=== PATIENT | male | born 1930 | race Caucasian/White ===

== ENCOUNTER → 2019-06-05 | Outpatient (CLI) | payer MEDICARE ==
[~2019-06-05] MED LIST: CATHETER FLUSH 10 ML SYR IV PRN; HOLD METFORMIN - RECEIVED CONTRAST 20 ML VIAL IV SCH; IOHEXOL 350 MG/ML 100 ML (OMNIPAQUE 350) VIAL IV ONE; NS 100 ML (IVPB) BAG IV ONE
[2019-06-05 11:00] LABS: BUN/CREATININE RATIO 19; CREATININE SERUM 0.69 MG/DL (0.60-1.30); GFR ESTIMATED > 60
--- NOTE | 2019-06-05 11:55 | Diagnostic Imaging Report ---
PROCEDURE: CT abdomen and pelvis with and without contrast. TECHNIQUE: Precontrast acquisitions were acquired through the abdomen and pelvis. Multiple contiguous axial images were obtained through the abdomen and pelvis after the administration of intravenous contrast. Auto Exposure Controls were utilized during the CT exam to meet ALARA standards for radiation dose reduction. INDICATION: Bilateral flank pain, right greater for 3 weeks. Patient also complains of hematuria. COMPARISON: No prior studies are available for comparison. FINDINGS: Lung bases does show some linear scarring or atelectasis in the left lower lobe. No discrete liver mass is identified apart from an area of hypodensity posterior right lobe measuring 10 mm. This could represent a flash filling hemangioma. No other liver lesions are seen. The gallbladder is unremarkable. No biliary ductal dilatation is seen. The pancreas and spleen are unremarkable. No adrenal mass is identified. Cortical low density left kidney is noted measuring 12 mm. This does not appear to enhance and most likely represents a cyst. No definite calculi or hydronephrosis is identified. Aorta is non-aneurysmal. Diffuse colonic diverticulosis is noted but no evidence of acute diverticulitis. Small bowel loops are normal caliber. There is no ascites. No discrete bladder mass is seen although there does appear to be some mild wall thickening of the anterior aspect of the urinary bladder, indeterminate. No abdominal or pelvic lymphadenopathy is seen. Bony structures are nonacute. IMPRESSION: 1. Left renal cyst. 2. Colonic diverticulosis without evidence of acute diverticulitis. 3. No evidence of urinary tract calculi or obstruction. There does appear to be some mild anterior bladder wall thickening without evidence of discrete mass. Cystoscopy may be useful for further evaluation. Dictated by: Dictated on workstation # [id number]
== END ==
LOC: RAD FS 10:18
PROVIDERS: ATTEND Family Medicine
DX: N28.1 Cyst of kidney, acquired (principal); K57.30 Diverticulosis of large intestine without perforation or abscess without bleeding
CPT/HCPCS: 36415; 74178; 82565; 84520

== ENCOUNTER → 2019-08-07 | Outpatient (CLI) | payer MEDICARE ==
[2019-08-07 12:05] LABS: HEMATOCRIT 44 % (40-54); HEMOGLOBIN 13.5 G/DL (13.3-17.7); MEAN CORPUSCULAR HEMOGLOBIN 28 PG (25-34); MEAN CORPUSCULAR HGB CONC 31 G/DL (32-36); MEAN CORPUSCULAR VOLUME 90 FL (80-99); WHITE BLOOD COUNT 9.3 10^3/uL (4.3-11.0)
[2019-08-07 12:06] LABS: BASOPHILS # (AUTO) 0.1 10^3/uL (0.0-0.1); BASOPHILS % (AUTO) 1 % (0-10); EOSINOPHILS # (AUTO) 0.2 10^3/uL (0.0-0.3); EOSINOPHILS % (AUTO) 3 % (0-10); LYMPHOCYTES # (AUTO) 2.8 X 10^3 (1.0-4.0); LYMPHOCYTES % (AUTO) 30 % (12-44); MEAN PLATELET VOLUME 11.6 FL (7.4-10.4); MONOCYTES # (AUTO) 0.8 X 10^3 (0.0-1.0); MONOCYTES % (AUTO) 9 % (0-12); NEUTROPHILS # (AUTO) 5.3 X 10^3 (1.8-7.8); NEUTROPHILS % (AUTO) 58 % (42-75); PLATELET COUNT 220 10^3/uL (130-400); RED CELL DISTRIBUTION WIDTH 14.4 % (10.0-14.5)
--- NOTE | 2019-08-07 12:21 | Diagnostic Imaging Report ---
INDICATION: Shortness of breath. TIME OF EXAM: 11:29 AM COMPARISON: No prior studies are available for comparison. FINDINGS: The heart is mildly enlarged. There are changes of median sternotomy. There is mild central congestive changes noted. The lungs are hyperinflated consistent with COPD. No effusion or pneumothorax is identified. IMPRESSION: Cardiomegaly and COPD with mild central congestion. Dictated by: Dictated on workstation # [id number]
[2019-08-07 12:27] LABS: CHLORIDE 96 MMOL/L (98-107); POTASSIUM 4.4 MMOL/L (3.6-5.0); SODIUM 137 MMOL/L (135-145)
[2019-08-07 12:28] LABS: BUN/CREATININE RATIO 19; CALCIUM 9.2 MG/DL (8.5-10.1); CARBON DIOXIDE 31 MMOL/L (21-32); CREATININE SERUM 0.72 MG/DL (0.60-1.30); GFR ESTIMATED > 60; GLUCOSE 102 MG/DL (70-105)
[2019-08-07 14:49] LABS: CLARITY,URINE TURBID; COLOR,URINE YELLOW; GLUCOSE, URINE (UA) NEGATIVE (NEGATIVE); KETONES,URINE TRACE (NEGATIVE); NITRITE,URINE NEGATIVE (NEGATIVE); PH,URINE 6.5 (5-9); PROTEIN,URINE 2+ (NEGATIVE)
[2019-08-07 14:50] LABS: BACTERIA,URINE FEW /HPF; BILIRUBIN,URINE 1+ (NEGATIVE); LEUKOCYTE ESTERASE ,URINE 3+ (NEGATIVE); RBC,URINE 0-2 /HPF; SQUAMOUS EPITHELIAL CELL,UR RARE /HPF; WBC,URINE TNTC /HPF
== END ==
LOC: RAD FS 11:22
PROVIDERS: ATTEND Family Medicine
DX: I51.7 Cardiomegaly (principal); J44.9 Chronic obstructive pulmonary disease, unspecified; R30.0 Dysuria
CPT/HCPCS: 36415; 71046; 80048; 81000; 85025; 87077; 87088; 87186

== ENCOUNTER → 2019-11-10 | Outpatient (CLI) | payer MEDICARE ==
[2019-11-10 13:36] LABS: BILIRUBIN,URINE NEGATIVE (NEGATIVE); CLARITY,URINE SL CLOUDY; COLOR,URINE YELLOW; GLUCOSE, URINE (UA) NEGATIVE (NEGATIVE); KETONES,URINE NEGATIVE (NEGATIVE); LEUKOCYTE ESTERASE ,URINE NEGATIVE (NEGATIVE); NITRITE,URINE NEGATIVE (NEGATIVE); PROTEIN,URINE 1+ (NEGATIVE)
[2019-11-10 13:37] LABS: BACTERIA,URINE TRACE /HPF; RBC,URINE >100 /HPF
== END ==
LOC: LAB FS 13:11
PROVIDERS: ATTEND Family Medicine
DX: R30.0 Dysuria (principal)
CPT/HCPCS: 81000; 87088

== ENCOUNTER 2019-12-02 11:48 | Inpatient (IN) | payer MEDICARE ==
[~2019-12-02] VITALS: Ht 154 cm; Wt 74.6 kg
--- NOTE | 2019-12-02 11:48 | NUR ---
TO ER VIA WC FROM DR AMADOR OFFICE. PT NEEDS TO GO TO THE BATHROOM BEFORE GOING TO A ROOM.
--- NOTE | 2019-12-02 13:00 | ED Respiratory ---
General Chief Complaint: Respiratory Problems Stated Complaint: SOB Nursing Triage Note: FROM DR AMADOR OFFICE WTIH INCREASED SOA. PT CAME ON 3L OF OXYGEN NC FROM HOME. Source: patient Exam Limitations: no limitations History of Present Illness Date Seen by Provider: Dec 02, 2019 Time Seen by Provider: 12:40 Initial Comments The patient is a pleasant 88-year-old female who was sent by Dr. Jordan for hypoxia. Dr. Jordan states the patient has a history of congestive heart failure and was saturating in the low 80s today. The patient reports that since Cecilia time she has been having a cough and some shortness of breath. She was diagnosed with a pneumonia in late August or early September and was started on antibiotics. She says recently her symptoms have been worsening. She denies chest pain, fevers or chills, nausea or vomiting, dizziness, syncope, abdominal or back pain. She does state that her heart rate has been fluctuating. She does not wear oxygen at home. 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 Timing/Duration: week Severity: moderate Modifying Factors: Improves With Albuterol Nebulizer (help somewhat), Improves With Oxygen (helps) Associated Symptoms: cough, shortness of breath, wheezing Allergies and Home Medications Allergies Coded Allergies: codeine (Verified Allergy, Unknown, 12/02/19) hydrocodone (Verified Allergy, Unknown, 12/02/19) tramadol (Verified Allergy, Unknown, 12/02/19) Patient Home Medication List Home Medication List Reviewed: Yes Review of Systems Review of Systems Constitutional: no symptoms reported EENTM: no symptoms reported Respiratory: cough, short of breath Cardiovascular: other (fluctuating heart rate) Gastrointestinal: no symptoms reported Genitourinary: no symptoms reported Musculoskeletal: no symptoms reported Skin: no symptoms reported Psychiatric/Neurological: No Symptoms Reported Hematologic/Lymphatic: No Symptoms Reported Immunological/Allergic: no symptoms reported All Other Systems Reviewed Negative Unless Noted: Yes Past Dmkalxo-Zaatno-Aopqyz Hx Past Med/Social Hx: Reviewed Nursing Past Med/Soc Hx Patient Social History Alcohol Use: Rarely Uses Recreational Drug Use: No Smoking Status: Former Smoker Recent Foreign Travel: No Contact w/Someone Who Travel: Yes (DAUGHTER IN [place] 3 WEEKS AGO) Recent Infectious Disease Expo: No Past Medical History Surgeries: Yes (CYSTOCELE, RECTOCELE, ) CABG, Hysterectomy, Tonsillectomy Respiratory: Yes Pneumonia, COPD Cardiac: Yes Heart Attack, Hypertension Neurological: No Genitourinary: Yes UTI-Chronic Gastrointestinal: No Musculoskeletal: Yes Arthritis Endocrine: Yes (CONTROLLED WITH DIET) Diabetes, Non-Insulin dep HEENT: No Cancer: No Psychosocial: No Integumentary: No Physical Exam Vital Signs - First Documented 12/02/19 12:07 Temp 36.4 Pulse 114 Resp 18 B/P (MAP) 140/69 (92) Pulse Ox 95 O2 Delivery Nasal Cannula Capillary Refill : Less Than 3 Seconds Height: '" Weight: lbs. oz. kg; 28.00 BMI Method: General Appearance: WD/WN, no apparent distress HEENT: PERRL/EOMI, normal ENT inspection, pharynx normal Neck: non-tender, full range of motion, supple, normal inspection Respiratory: chest non-tender, no respiratory distress, wheezing (expiratory) Cardiovascular: no gallop, no JVD, no murmur, tachycardia Gastrointestinal: normal bowel sounds, non tender, soft, no pulsatile mass Extremities: normal range of motion, non-tender, normal inspection, no pedal edema Neurologic/Psychiatric: no motor/sensory deficits, alert, normal mood/affect, oriented x 3 Skin: normal color, warm/dry Focused Exam Lactate Level 12/02/19 12:40: Lactic Acid Level 1.11 Lactic Acid Level Laboratory Tests Test 12/02/19 12:40 Lactic Acid Level 1.11 MMOL/L (0.50-2.00) Progress/Results/Core Measures Suspected Sepsis Recent Fever Within 48 Hours: No Infection Criteria Present: Suspected New Infection New/Unexplained Altered Menta: No Sepsis Screen: No Definite Risk SIRS Temperature: Pulse: 114 Respiratory Rate: 18 Laboratory Tests 12/02/19 12:40: White Blood Count 7.1 Blood Pressure 140 /69 Mean: 92 12/02/19 12:40: Lactic Acid Level 1.11 Laboratory Tests 12/02/19 12:40: Creatinine 0.74, Platelet Count 213, Total Bilirubin 0.3 Results/Orders Lab Results Laboratory Tests Test 12/02/19 12:40 Range/Units White Blood Count 7.1 4.3-11.0 10^3/uL Red Blood Count 4.19 L 4.35-5.85 10^6/uL Hemoglobin 11.8 11.5-16.0 G/DL Hematocrit 39 35-52 % Mean Corpuscular Volume 94 80-99 FL Mean Corpuscular Hemoglobin 28 25-34 PG Mean Corpuscular Hemoglobin Concent 30 L 32-36 G/DL Red Cell Distribution Width 13.2 10.0-14.5 % Platelet Count 213 130-400 10^3/uL Mean Platelet Volume 11.2 H 7.4-10.4 FL Neutrophils (%) (Auto) 59 42-75 % Lymphocytes (%) (Auto) 28 12-44 % Monocytes (%) (Auto) 1 0-12 % Eosinophils (%) (Auto) 10 0-10 % Basophils (%) (Auto) 1 0-10 % Neutrophils # (Auto) 4.2 1.8-7.8 X 10^3 Lymphocytes # (Auto) 2.0 1.0-4.0 X 10^3 Monocytes # (Auto) 0.7 0.0-1.0 X 10^3 Eosinophils # (Auto) 0.1 0.0-0.3 10^3/uL Basophils # (Auto) 0.0 0.0-0.1 10^3/uL Sodium Level 137 135-145 MMOL/L Potassium Level 3.9 3.6-5.0 MMOL/L Chloride Level 90 L 98-107 MMOL/L Carbon Dioxide Level 40 H 21-32 MMOL/L Anion Gap 7 5-14 MMOL/L Blood Urea Nitrogen 17 7-18 MG/DL Creatinine 0.74 0.60-1.30 MG/DL Estimat Glomerular Filtration Rate > 60 BUN/Creatinine Ratio 23 Glucose Level 99 70-105 MG/DL Lactic Acid Level 1.11 0.50-2.00 MMOL/L Calcium Level 9.3 8.5-10.1 MG/DL Corrected Calcium 10.1 8.5-10.1 MG/DL Total Bilirubin 0.3 0.1-1.0 MG/DL Aspartate Amino Transf (AST/SGOT) 18 5-34 U/L Alanine Aminotransferase (ALT/SGPT) 12 0-55 U/L Alkaline Phosphatase 55 40-136 U/L Troponin I < 0.30 <0.30 NG/ML Pro-B-Type Natriuretic Peptide 2831.0 H <75.0 PG/ML Total Protein 7.5 6.4-8.2 GM/DL Albumin 3.0 L 3.2-4.5 GM/DL My Orders Orders - BRO NERI DO Cbc With Automated Diff (12/02/19 12:39) Chest 1 View Ap/Pa Only (12/02/19 12:39) Ekg Tracing (12/02/19 12:39) Comprehensive Metabolic Panel (12/02/19 12:39) O2 (12/02/19 12:39) Monitor-Rhythm Ecg Trace Only (12/02/19 12:39) Ed Iv/Invasive Line Start (12/02/19 12:39) Creatine Kinase Mb (12/02/19 12:39) Troponin I Fs (12/02/19 12:39) Probnp Fs (12/02/19 12:39) Lactic Acid Analyzer (12/02/19 12:47) Blood Culture (12/02/19 12:47) Levofloxacin 750 Mg/150 Ml Iv (Levaquin (12/02/19 14:45) Vital Signs/I&O 12/02/19 12:07 Temp 36.4 Pulse 114 Resp 18 B/P (MAP) 140/69 (92) Pulse Ox 95 O2 Delivery Nasal Cannula Capillary Refill : Less Than 3 Seconds Blood Pressure Mean: 92 Progress Note : Progress Note @1445 - patient and daughter updated on lab and imaging results. As the patient is hypoxic she will need to be admitted and the family and patient agree. Case was discussed with Dr. Roche who is the hospitalist and accepts the patient for inpatient telemetry admission. ECG Comment @1209 - atrial fibrillation, rate of 100, normal axis, no acute ischemic findings noted, no STEMI, reviewed and interpreted by myself Departure Communication (Admissions) Time/Spoke to Admitting Phy: 14:43 Dr Roche accepts the patient to an inpatient telemetry bed at [facility]. Impression Primary Impression: New onset atrial fibrillation Additional Impressions: Atypical pneumonia Hypoxia Elevated brain natriuretic peptide (BNP) level Disposition: ADMITTED INPATIENT Condition: Stable Admissions Decision to Admit Reason: Admit from ER (General) Decision to Admit/Date: Dec 02, 2019 Time/Decision to Admit Time: 14:45 Departure-Patient Inst. Referrals: QUENTIN JORDAN MD (PCP/Family) Primary Care Physician BRO NERI DO Dec 02, 2019 13:00
[2019-12-02 13:04] LABS: HEMATOCRIT 39 % (35-52); HEMOGLOBIN 11.8 G/DL (11.5-16.0); MEAN CORPUSCULAR HEMOGLOBIN 28 PG (25-34); MEAN CORPUSCULAR HGB CONC 30 G/DL (32-36); MEAN CORPUSCULAR VOLUME 94 FL (80-99); MEAN PLATELET VOLUME 11.2 FL (7.4-10.4); PLATELET COUNT 213 10^3/uL (130-400); RED CELL DISTRIBUTION WIDTH 13.2 % (10.0-14.5); WHITE BLOOD COUNT 7.1 10^3/uL (4.3-11.0)
[2019-12-02 13:05] LABS: BASOPHILS % (AUTO) 1 % (0-10); EOSINOPHILS # (AUTO) 0.1 10^3/uL (0.0-0.3); EOSINOPHILS % (AUTO) 10 % (0-10); LYMPHOCYTES % (AUTO) 28 % (12-44); MONOCYTES # (AUTO) 0.7 X 10^3 (0.0-1.0); MONOCYTES % (AUTO) 1 % (0-12); NEUTROPHILS # (AUTO) 4.2 X 10^3 (1.8-7.8); NEUTROPHILS % (AUTO) 59 % (42-75)
--- NOTE | 2019-12-02 13:08 | Diagnostic Imaging Report ---
INDICATION: Shortness of air. Hypoxia. COMPARISON: 08/07/2019 FINDINGS: Single frontal radiographic view of the chest was obtained and shows moderate cardiomegaly and pulmonary vascular congestion. There has been interval increase in otherwise small bibasilar effusions. There are also patchy alveolar opacities in both lung bases, left greater than right. No pneumothorax is seen on either side. Osseous structures show no gross acute abnormalities. Sternotomy wires and calcified aortic atherosclerosis are noted. IMPRESSION: 1. Interval increase in otherwise small bibasilar effusions. 2. Patchy bibasilar alveolar opacities; suspect atelectasis, although patchy infiltrate is not excluded. 3. Cardiomegaly with pulmonary vascular congestion. Dictated by: Dictated on workstation # [id number]
--- NOTE | 2019-12-02 13:12 | NUR ---
WATER TAKEN TO PT. DENIES NEEDS AT THIS TIME. NOTIFIED WE WERE WAITING ON RESULTS.
[2019-12-02 13:35] LABS: CARBON DIOXIDE 40 MMOL/L (21-32); CHLORIDE 90 MMOL/L (98-107); POTASSIUM 3.9 MMOL/L (3.6-5.0); SODIUM 137 MMOL/L (135-145)
[2019-12-02 13:36] LABS: ALANINE AMINOTRANSFERASE 12 U/L (0-55); ALKALINE PHOSPHATASE 55 U/L (40-136); BILIRUBIN,TOTAL 0.3 MG/DL (0.1-1.0); BUN/CREATININE RATIO 23; CALCIUM 9.3 MG/DL (8.5-10.1); CREATININE SERUM 0.74 MG/DL (0.60-1.30); GFR ESTIMATED > 60; GLUCOSE 99 MG/DL (70-105); TOTAL PROTEIN 7.5 GM/DL (6.4-8.2)
--- NOTE | 2019-12-02 14:17 | NUR ---
DATUGHTER IS LEAVING AND WILL BE BACK SHORTLY. ASSISTED PT TO COMMODE.
[2019-12-02] MEDS ORDERED: LEVOFLOXACIN 750 MG/150 ML IV 150 ML IV ONE (14:45)
--- NOTE | 2019-12-02 14:53 | NUR ---
CENTRAL OFFICE SUPERVISOR CONTACTED FOR A BED. IN TALKNG TO PT AT THIS TIME.
--- NOTE | 2019-12-02 15:10 | NUR ---
ATTEMPT TO CALL REPORT WITH NOT ANSWER
[2019-12-02] MEDS ORDERED: polyethylene glycoL POWDER 17 GM (MIRALAX) PACK PO PRN (16:00)
[2019-12-02] MEDS ORDERED: MELATONIN 3 MG TABLET PO PRN (16:00)
[2019-12-02 17:16] VITALS: BP 123/63
[2019-12-02] MEDS ORDERED: CATHETER FLUSH 10 ML SYR IV PRN (17:30)
--- NOTE | 2019-12-02 18:26 | Consultation-Cardiology ---
HPI-Cardiology Cardiology Consultation: Date of Consultation 12/02/19 Time Seen by a Provider: 17:50 Date of Admission Attending Physician Tana Roche MD Admitting Physician Liliana Carvajal MD Consulting Physician RICARDO FLOWERS MD, MA, FACP, FACC, [facility] Physician requesting consult: Dr Roche HPI: Chief Complaint: Reason for Card consult: Newly-diagnosed A Fib HPI 88 yo with 2-3 weeks of palp and limitation of stamina beyond what has been her norm. Mod exertional shortness of breath. No cp. No focal weakness. No passing out. No leg swelling Went to pcp. Found to have fast, irreg heart rate. Sent to ER at [facility] from where sent to this hosp Review of Systems-Cardiology Review of Systems Constitutional: malaise, tiredness, weight gain (5 lbs in last one week) Eyes: No vision change Ears/Nose/Throat: No ear discharge, No nasal drainage, No recent hearing loss Respiratory: As described under HPI Cardiovascular: As described under HPI Gastrointestinal: No diarrhea, No nausea, No vomiting Genitourinary: No dysuria, No hematuria, No urine frequency changes Musculoskeletal: back pain (chronic) Skin: No rash, No ulcerations Psychiatric/Neurological: No seizure, No focal weakness, No syncope Hematologic: No bleeding abnormalities All Other Systems Reviewed Negative Unless Noted: Yes QFG-Tcnepa-Mgexym Hx Patient Social History Alcohol Use: Rarely Uses Recreational Drug Use: No Smoking Status: Former Smoker Recent Foreign Travel: No Recent Infectious Disease Expo: No Past Medical History PMH As described under Assessment. Family Medical History Family Medical History: Does not report fam h/o early CAD or SCD Allergies and Home Medications Allergies Coded Allergies: codeine (Verified Allergy, Unknown, 12/02/19) hydrocodone (Verified Allergy, Unknown, 12/02/19) tramadol (Verified Allergy, Unknown, 12/02/19) Patient Home Medication List Home Medication List Reviewed: Yes Physical Exam-Cardiology Physical Exam Vital Signs/I&O 12/02/19 12/02/19 12/02/19 12/02/19 12:07 12:07 16:16 17:16 Temp 36.4 36.5 Pulse 114 90 97 Resp 18 22 20 B/P (MAP) 140/69 (92) 98/41 123/63 Pulse Ox 95 98 90 O2 Delivery Nasal Cannula Nasal Cannula Nasal Cannula Nasal Cannula O2 Flow Rate 3.00 3.00 4.00 12/02/19 17:35 Pulse 103 Capillary Refill : Less Than 3 Seconds Constitutional: AAO x 3, well-developed, well-nourished HEENT: EOMI, hearing is well preserved; No xanthelasmas are seen Neck: carotid pulses are 2 + bilaterally, with good upstrokes Respiratory: No accessory muscle use; other (good bilat air entry) Cardiovascular: irregularly irregular, S1 and S2, systolic murmur (soft JOEL at card base) Gastrointestinal: No tender; soft; No guarding, No rebound; audible bowel brett nds Extremities: No clubbing, No cyanosis, No significant edema Neurologic/Psychiatric: oriented x 3, other (moves all limbs equally) Skin: No rash on exposed areas, No ulcerations on exposed areas Data Review Labs Laboratory Tests 12/02/19 12:40: White Blood Count 7.1, Red Blood Count 4.19L, Hemoglobin 11.8, Hematocrit 39, Mean Corpuscular Volume 94, Mean Corpuscular Hemoglobin 28, Mean Corpuscular Hemoglobin Concent 30L, Red Cell Distribution Width 13.2, Platelet Count 213, Mean Platelet Volume 11.2H, Neutrophils (%) (Auto) 59, Lymphocytes (%) (Auto) 28, Monocytes (%) (Auto) 1, Eosinophils (%) (Auto) 10, Basophils (%) (Auto) 1, Neutrophils # (Auto) 4.2, Lymphocytes # (Auto) 2.0, Monocytes # (Auto) 0.7, Eosinophils # (Auto) 0.1, Basophils # (Auto) 0.0, Sodium Level 137, Potassium Level 3.9, Chloride Level 90L, Carbon Dioxide Level 40H, Anion Gap 7, Blood Urea Nitrogen 17, Creatinine 0.74, Estimat Glomerular Filtration Rate > 60, BUN/Creatinine Ratio 23, Glucose Level 99, Lactic Acid Level 1.11, Calcium Level 9.3, Corrected Calcium 10.1, Total Bilirubin 0.3, Aspartate Amino Transf (AST/SGOT) 18, Alanine Aminotransferase (ALT/SGPT) 12, Alkaline Phosphatase 55, Troponin I < 0.30, Pro-B-Type Natriuretic Peptide 2831.0H, Total Protein 7.5, Albumin 3.0L Laboratory Tests 3/10/20 12:40 A/P-Cardiology Assessment/Admission Diagnosis A Fib of undetermined age (first diagnosed on 12-02-19) CAD. S/p CABG in late at [facility]. Multiple cor stents since, but none in the last 5 years Discussion and Recomendations * Long-acting dilt for vent rate control * Apixaban for stroke prophylaxis * ASA for CAD (h/o CABG and PCI) * Monitor labs * Echo * Discussed with Dr Rcohe on phone earlier today RICARDO FLOWERS MD FACP FAC CCDS Dec 02, 2019 18:26
[2019-12-02 19:47] VITALS: BP 122/57
[2019-12-02] MEDS ORDERED: RT-ALBUTEROL/IPRATROPIUM 3 ML (DUONEB) VIAL INH SCH (21:00)
[2019-12-02] MEDS: diphenhydrAMINE 25 MG TAB (BENADRYL) PO PRN (21:16)
[2019-12-02] MEDS: APIXABAN 5 MG (ELIQUIS) TABLET PO SCH (21:16)
[2019-12-02] MEDS: ALPRAZolam 0.5 MG (XANAX) TAB PO PRN (21:16)
[2019-12-02] MEDS: CATHETER FLUSH 10 ML SYR IV SCH (22:00)
[2019-12-03] VITALS (8 sets, daily range): BP systolic 97–140; BP diastolic 60–74
[2019-12-03] MEDS: CATHETER FLUSH 10 ML SYR IV SCH ×3 (05:32→22:00)
[2019-12-03 07:08] LABS: HEMOGLOBIN 12.1 G/DL (11.5-16.0); MEAN PLATELET VOLUME 11.7 FL (7.4-10.4); RED CELL DISTRIBUTION WIDTH 13.5 % (10.0-14.5); WHITE BLOOD COUNT 5.9 10^3/uL (4.3-11.0)
[2019-12-03 07:24] LABS: BUN/CREATININE RATIO 20; CALCIUM 9.1 MG/DL (8.5-10.1); CARBON DIOXIDE 35 MMOL/L (21-32); CHLORIDE 92 MMOL/L (98-107); GFR ESTIMATED > 60; GLUCOSE 113 MG/DL (70-105); POTASSIUM 4.2 MMOL/L (3.6-5.0); SODIUM 139 MMOL/L (135-145)
[2019-12-03] MEDS: APIXABAN 5 MG (ELIQUIS) TABLET PO SCH (08:25)
[2019-12-03] MEDS: ACETAMINOPHEN 325 MG TABLET PO PRN (08:25)
[2019-12-03] MEDS ORDERED: ASPIRIN E.C. 81 MG (ECOTRIN) TAB PO SCH (09:00)
[2019-12-03] MEDS ORDERED: dilTIAZem120 MG (CARDIZEM CD) CAP PO SCH (09:00)
--- NOTE | 2019-12-03 10:37 | Physical Therapy Evaluation ---
PT Evaluation-General Medical Diagnosis Admission Date Dec 02, 2019 at 15:11 Medical Diagnosis: SOB, A fib Onset Date: Dec 02, 2019 Therapy Diagnosis Therapy Diagnosis: Impaired mobility Precautions Precautions/Isolations: Fall Prevention, Standard Precautions Weight Bear Status Right Lower Extremity: Right Weight Bearing/Tolerated Left Lower Extremity: Left Weight Bearing/Tolerated Referral Physician: Melchor Reason for Referral: Evaluation/Treatment Medical History Additional Medical History Past Medical History Surgeries: Yes (CYSTOCELE, RECTOCELE, ) CABG, Hysterectomy, Tonsillectomy Respiratory: Yes Pneumonia, COPD Cardiac: Yes Heart Attack, Hypertension Neurological: No Genitourinary: Yes UTI-Chronic Gastrointestinal: No Musculoskeletal: Yes Arthritis Endocrine: Yes (CONTROLLED WITH DIET) Diabetes, Non-Insulin dep HEENT: No Cancer: No Psychosocial: No Integumentary: No Reviewed History: Yes Social History Home: Single Level Current Living Status: Alone (PRN help from family for shopping.) Entry Into Home: Ramp (covering 2 stairs) PT Steps Into Home: 0 PT Steps Inside Home: 0 (Ramp) Prior Prior Level of Function SCALE: Activities may be completed with or without assistive devices. 2-Tncbotegva-hryqhai completes the activity by him/herself with no assistance from a helper. 5-Set-up or Clean-up Assistance-helper sets up or cleans up; patient completes activity. [place] assists only prior to or following the activity. 4-Supervision or Touching Assistance-helper provides verbal cues and/or touching/steadying and/or contact guard assistance as patient completes activity. Assistance may be provided throughout the activity or intermittently. 3-Partial/Moderate Assistance-helper does LESS THAN HALF the effort. [place] lifts, holds or supports trunk or limbs, but provides less than half the effort. 2-Substantial/Maximal Assistance-helper does MORE THAN HALF the effort. [place] lifts or holds trunk or limbs and provides more than half the effort. 0-Umpujowrs-hevodx does ALL the effort. Patient does none of the effort to com plete the activity. Or, the assistance of 2 or more helpers is required for the patient to complete the activity. If activity was not attempted, code reason: 7-Patient Refused. 9-Not Applicable-not attempted and the patient did not perform the activity before the current illness, exacerbation or injury. 10-Not Attempted due to Environmental Limitations-(lack of equipment, weather restraints, etc.). 88-Not Attempted due to Medical Conditions or Safety Concerns. Bed Mobility: 5 Transfers (B,C,W/C): 5 Gait: 5 Indoor Mobility (Ambulation): Needed Some Help Stairs: Not Applicalbe Prior Devices Use: Walker Prior Device Use: FWW PT Evaluation-Current Subjective NO Pain currently PRN SOB Pt/Family Goals to be independent at home Objective Patient Orientation: Person, Place, Eyes Open Attachments: Oxygen (5L O2 nasal canula) ROM/Strength ROM Lower Extremities WNL Strength Lower Extremities overall strength 4/5 BLE Neuromuscular (Tone, Coordination, Reflexes) Sensation to touch WNL Sensory Vision: Functional Hearing: Functional Sensation Right Lower Extremit: Intact Sensation Left Lower Extremity: Intact Transfers Roll Left to Right (QC): 5 Sit to Lying (QC): 4 (SBA) Sit to Stand (QC): 4 (CGA) Chair/Wsl-jc-Edcgc Xfer(QC): 4 (CGA) Gait Does the Patient Walk?: Yes Mode of Locomotion: Walk Anticipated Mode of Locomotion: Walk Walk 10 feet (QC): 4 (CGA) Walk 50 ft with 2 Turns(QC): 4 (CGA) Walk 150 ft (QC): 4 (CGA) Distance: 150 Gait Assistive Device: FWW Comments/Gait Description slow but steady ambulation Balance Sitting Static: Normal Sitting Dynamic: Normal Standing Static: Good Standing Dynamic: Good Treatment LE exercises for strength: ankle pumps 2x10 feet off ground due to fx of L 5 ray seated marching 2x10 Long arc quad 2x10 Assessment/Needs Patient has impaired mobility, strength, endurance. SOB with activity, cues for purse lip breathing. Rehab Potential: Good PT Revenue Tax Specialist Goals Chcf Goals PT Chcf Goals Time Frame: Dec 10, 2019 Roll Left & Right (QC): 6 Sit to Lying (QC): 6 Lying-Sitting on Side/Bed(QC): 6 Sit to Stand (QC): 6 Chair/Noi-lc-Bqwgb Xfer(QC): 6 Walk 10 feet (QC): 6 Walk 50ft with 2 Turns (QC): 6 Walk 150 ft (QC): 6 PT Plan Problem List Problem List: Activity Tolerance, Functional Strength, Safety, Balance, Gait, Transfer, Bed Mobility Treatment/Plan Treatment Plan: Continue Plan of Care Treatment Plan: Bed Mobility, Education, Functional Activity Paramjit, Functional Strength, Gait, Safety, Therapeutic Exercise, Transfers Treatment Duration: Dec 10, 2019 Frequency: 6 times per week Estimated Hrs Per Day: .25 hour per day Patient and/or Family Agrees t: Yes Safety Risks/Education Patient Education: Gait Training, Transfer Techniques, Correct Positioning, Safety Issues Teaching Recipient: Patient Teaching Methods: Demonstration, Discussion Response to Teaching: Verbalize Understanding, Reinforcement Needed Discharge Recommendations Plan Gait training, strengthening, transfer training, safety training, energy conservation training, and balance training. Therapy Discharge Recommendati: Home & Family Equpiment Recommendations-D/C: Front Wheeled Walker Time/GCodes Time In: 1010 Time Out: 1029 Total Billed Treatment Time: 19 Total Billed Treatment 1 visit EVL 19' RORY ARMSTRONG PT Dec 03, 2019 10:37
[2019-12-03] MEDS ORDERED: SIMV40TA25 PO (10:54)
[2019-12-03] MEDS ORDERED: CLOP75TA28 PO (10:54)
[2019-12-03] MEDS ORDERED: ISM60TCR PO (10:54)
[2019-12-03] MEDS ORDERED: FURO20TA4 PO (10:54)
[2019-12-03] MEDS ORDERED: LOSA25TA41 PO (10:54)
[2019-12-03] MEDS ORDERED: METO50TA7 PO (10:54)
[2019-12-03] MEDS ORDERED: LEVO100T7 PO (10:54)
[2019-12-03] MEDS ORDERED: ALBU2.5V4 NEB (10:54)
[2019-12-03] MEDS ORDERED: AMLO10TA7 PO (10:54)
[2019-12-03] MEDS ORDERED: OMEP20CA18 PO (10:54)
[2019-12-03] MEDS ORDERED: ALPR0.5T7 PO (10:54)
[2019-12-03] MEDS ORDERED: FOLI400T4 PO (10:56)
[2019-12-03] MEDS ORDERED: ACET325T38 PO (10:56)
[2019-12-03] MEDS ORDERED: DIPH25CA79 PO (10:56)
[2019-12-03] MEDS ORDERED: ASPI-983 PO (10:57)
--- NOTE | 2019-12-03 11:10 | NUR ---
SPOKE WITH THE PT (SHE HAD A MED LIST WITH HER) AND WENT THRU THE EXT MED HISTORY TO COMPLETE THE MED REC. ALL MEDICATIONS WERE ON HER EXT MED HISTORY AND THERE WERE NO DISCREPANCIES PT WAS TAKING CLOPIDOGREL 75MG UPON ADMITTANCE BUT THE PT IS UNDER THE IMPRESSION THAT THIS MED IS GOING TO BE CHANGED. I DID LEAVE IT ON THE MED REC SO WE CAN DISCONTINUE ON DISCHARGE IS NEEDED. OTC MEDS: BENADRYL TYLENOL SUPER B COMPLEX W/ FOLIC ACID ASPIRIN 81MG NAPROXEN 500MG IS LISTED ON HER LIST AND IT IS ON HER EXT MED HISTORY, THE PT SAYS SHE WAS TAKING BUT RAN OUT OF REFILL AND HAS NOT TAKEN THIS MED IN OVER A MONTH- DUE TO THAT I LEFT IT OFF THE MED REC.
--- NOTE | 2019-12-03 11:40 | Occupational Therapy Eval ---
OT Evaluation-General/PLF Medical Diagnosis Admission Date Dec 02, 2019 at 15:11 Medical Diagnosis: SOB, A fib Onset Date: Dec 02, 2019 Therapy Diagnosis Therapy Diagnosis: debility Precautions Precautions/Isolations: Fall Prevention, Standard Precautions Safety Interventions: Reorient-PRN Referral Physician: Melchor Medical History Pertinent Medical History: Arthritis, CABG, CAD, COPD, HTN, PA Additional Medical History DM, CHF Social History Home: Single Level Current Living Status: Alone (PRN help from family for shopping.) Entry Into Home: Ramp (covering 2 stairs) Steps Into Home: 0 Steps Inside Home: 0 (Ramp) ADL-Prior Level of Function SCALE: Activities may be completed with or without assistive devices. 4-Lvpyjwwcla-yodsesl completes the activity by him/herself with no assistance from a helper. 5-Set-up or Clean-up Assistance-helper sets up or cleans up; patient completes activity. [place] assists only prior to or following the activity. 4-Supervision or Touching Assistance-helper provides verbal cues and/or touching/steadying and/or contact guard assistance as patient completes activi ty. Assistance may be provided throughout the activity or intermittently. 3-Partial/Moderate Assistance-helper does LESS THAN HALF the effort. [place] lifts, holds or supports trunk or limbs, but provides less than half the effort. 2-Substantial/Maximal Assistance-helper does MORE THAN HALF the effort. [place] lifts or holds trunk or limbs and provides more than half the effort. 9-Dqgfilgrl-acdbbc does ALL the effort. Patient does none of the effort to complete the activity. Or, the assistance of 2 or more helpers is required for the patient to complete the activity. If activity was not attempted, code reason: 7-Patient Refused. 9-Not Applicable-not attempted and the patient did not perform the activity before the current illness, exacerbation or injury. 10-Not Attempted due to Environmental Limitations-(lack of equipment, weather restraints, etc.). 88-Not Attempted due to Medical Conditions or Safety Concerns. ADL PLOF Comments Pt reports being independent with basic self care. Uses walker for mobility. Has someone who cleans every other week. DME/Equipment: Bath Chair, Grab Bars, Tall Toilet, Tub/Shower Drive Self: No OT Current Status Subjective Pt in bed, agrees to therapy. Has no c/o pain. Mental Status/Objective Patient Orientation: Person, Place Attachments: Oxygen Current Glasses/Contacts: Yes Hand Dominance: Right Upper Extremity ROM Grossly WFL Upper Extremity Coordination Intact Upper Extremity Sensation Intact per pt report Upper Extremity Strength Grossly 4/5 ADL-Treatment ADL-Current Pt supine to sit with SBA. Sat EOB with good balance during UE assessment. Pt doffed/donned sock with SBA while seated. Sit to stand with supervision. Pt resting in bed with needs met after session. Eating (QC): 6 (by report) On/Off Footwear (QC): 5 Education OT Patient Education: Rehab process Teaching Recipient: Patient Teaching Methods: Discussion Response to Teaching: Verbalize Understanding OT Long-Term Goals Product Marketing Consultant Goals Time Frame: Dec 10, 2019 Toileting Hygiene (QC): 6 Shower/Bathe Self (QC): 5 Upper Body Dressing (QC): 6 Lower Body Dressing (QC): 6 On/Off Footwear (QC): 6 Additional Goals: 1-Demonstrate ADL Tasks, 2-Verbalize Understanding, 3- ImproveStrength/Paramjit 1=Demonstrate adherence to instructed precautions during ADL tasks. 2=Patient will verbalize/demonstrate understanding of assistive devices/modifications for ADL. 3=Patient will improve strength/tolerance for activity to enable patient to perform ADL's. OT Education/Plan Problem List/Assessment Assessment: Decreased Activ Tolerance, Dependent Transfers, Impaired Self-Care Skills Pt to benefit from skilled OT intervention for ADL training, transfers, strengthening, and safety education to increase level of independence and allow safe discharge Discharge Recommendations Plan/Recommendations: Continue POC Treatment Plan/Plan of Care Treatment,Training & Education: Yes Patient would benefit from OT for education, treatment and training to promote independence in ADL's, mobility, safety and/or upper extremity function for ADL's. Plan of Care: ADL Retraining, Functional Mobility, UE Funct Exercise/Act Treatment Duration: Dec 10, 2019 Frequency: 5 times per week Estimated Hrs Per Day: .25 hour per day Rehab Potential: Good Time/GCodes Start Time: 11:14 Stop Time: 11:26 Total Time Billed (hr/min): 12 Billed Treatment Time 1 visit, EVL(12minutes) JENNIFER KESSLER OT Dec 03, 2019 11:40
--- NOTE | 2019-12-03 13:37 | NUR ---
PATIENT HAS BLOOD IN HER URINE. SHE HAS HAD THIS PROBLEM IN THE PAST. SHE SEE DR SAUCEDO BUT THE BLOOD STOPPED BEFORE HER APPOINTMENT. NO COMPLAINTS OF PAIN OR DISCOMFORT. DR LANDA MEDICAL STUDENT WAS IN THE ROOM. HE STATED THAT HE WILL NOTIFY DR LANDA ABOUT THE BLOOD IN HER URINE.
--- NOTE | 2019-12-03 13:48 | NUR ---
CM/SS: Visited with pt as to plan for discharge Plan: Pt to return home when deemed appropriate; pt may need home care services Summary: Pt is familiar with this worker from [place]. Pt reports having some shortness of breath and difficulty breathing. She reports she has been living at home and her son and daughter in law live there in the winter and have a home on the [place]. They have been staying with her and helping with some things. She also has a daughter and son in law that live in [place] and grandchildren. She reports having a cleaning lady that comes, as well as she is no longer driving and wears the oxygen round the clock. She feels as if she is doing pretty good in the home. Today is pt's birthday. Pt also ask about oxygen tubing and needing it to be longer. [employer] is the preferred medical equipment company. Pt is open to home care if she would need the service upon discharge. Pt thanks this worker for the visit.
--- NOTE | 2019-12-03 13:57 | History & Physical-Hospitalist ---
BRADY PEARSON,MED STUDENT 12/03/19 1357: History of Present Illness HPI/Chief Complaint CC: Shortness of breath HPI: Ms. Marrero is an 89yo WF patient of Dr. Carvajal who presented to [facility] ED yesterday c/o SOB for the last week. She has a history of CAD and heart failure and has had bypass and stents placed at , but has not seen a lozenge maker helper in 5 years. The last week she has felt more SOB and reports palpitations she has not felt previously. She was diagnosed with PNA in August treated with abx, and has been on 3L of oxygen at home since July. She denies fevers, chills, chest pain, n/v/d, or abdominal pain. Source: patient, family Exam Limitations: no limitations Date Seen 12/03/19 Time Seen by a Provider: 10:30 Attending Physician Tana Roche MD PCP Liliana Carvajal MD Referring Physician Date of Admission Dec 02, 2019 at 15:11 Home Medications & Allergies Home Medications Reviewed patient Home Medication Reconciliation performed by pharmacy medication reconciliations precision agriculture technician and/or nursing. Patients Allergies have been reviewed. Allergies Allergies Coded Allergies codeine (Verified Allergy, Unknown, 12/02/19) hydrocodone (Verified Allergy, Unknown, 12/02/19) tramadol (Verified Allergy, Unknown, 12/02/19) Past Lfpijzp-Iqjbis-Bewqds Hx Past Med/Social Hx: Reviewed Nursing Past Med/Soc Hx Patient Social History Alcohol Use: Rarely Uses Recreational Drug Use: No Smoking Status: Former Smoker Recent Foreign Travel: No Contact w/other who traveled: No Recent Infectious Disease Expo: No Immunizations Up To Date Date of Pneumonia Vaccine: Sep 02, 2018 Date of Influenza Vaccine: Jul 03, 2019 Past Medical History Surgeries: CABG, Hysterectomy, Tonsillectomy Respiratory: Pneumonia Cardiac: Coronary Artery Disease, Heart Attack, Hypertension Hysterectomy Genitourinary: UTI-Chronic Musculoskeletal: Arthritis Endocrine: Diabetes, Non-Insulin dep Hearing Impairment: Hard of Hearing Review of Systems Constitutional: No chills, No dizziness, No fever EENTM: hearing loss; No vision loss, No epistaxis, No nose congestion, No throat pain, No throat swelling Respiratory: cough; No hemoptysis; short of breath; No stridor, No wheezing Cardiovascular: No chest pain; edema, palpitations; No syncope Gastrointestinal: No abdominal pain, No constipation, No diarrhea, No nausea, No vomiting Genitourinary: No dysuria, No frequency; hematuria (2 episodes last 6 months); No pain Skin: No lesions, No pruritus, No rash Psychiatric/Neurological: Denies Headache, Denies Numbness, Denies Paresthesia, Denies Tingling Physical Exam Physical Exam Vital Signs Vital Signs - First Documented 12/02/19 12:07 Temp 36.4 Pulse 114 Resp 18 B/P (MAP) 140/69 (92) Pulse Ox 95 O2 Delivery Nasal Cannula O2 Flow Rate 3.00 Capillary Refill : Less Than 3 Seconds Height, Weight, BMI Height: '" Weight: lbs. oz. kg; 29.38 BMI Method: General Appearance: No Apparent Distress, WD/WN Eyes: Bilateral Eye PERRL, Bilateral Eye EOMI HEENT: PERRL/EOMI, Pharynx Normal; No Pale Conjunctivae (L), No Pale Conjunctiv ae (R), No Pharyngeal Erythema Neck: Full Range of Motion, Non Tender, Supple; No Lymphadenopathy (L), No Lymphadenopathy (R) Respiratory: Lungs Clear, Normal Breath Sounds, No Accessory Muscle Use, No Respiratory Distress; No Crackles, No Wheezing Cardiovascular: No Edema, No JVD, Normal Peripheral Pulses, Irregularly Irregular Gastrointestinal: Normal Bowel Sounds, Non Tender, Soft; No Distended, No Guarding, No Rebound Extremity: Normal Capillary Refill, Non Tender, No Calf Tenderness, No Pedal Edema Neurologic/Psychiatric: Alert, Oriented x3, No Motor/Sensory Deficits, Normal Mood/Affect Skin: Normal Color, Warm/Dry Lymphatic: No Adenopathy Results Results/Procedures Labs Laboratory Tests 12/02/19 12:40 12/03/19 05:45 12/03/19 06:45 Patient resulted labs reviewed. 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 Carvajal who has a PMH of CAD previous bypass and stents placed who was recently placed on home O2 in July at two liters and recently increased to 3 who had gone to urgent care, found to have pneumonia and CHF in August but she was found to have AF with RVR and congestive heart failure. Dr. Ruggiero has evaluated her, ordered and echocardio gram and will closely monitor and has been managing IV diuresis. Dr. Palacios will be consulted due to O2 dependency. Past Hbnwdcc-Ixzbjn-Jqpxgb Hx Past Med/Social Hx: Reviewed Nursing Past Med/Soc Hx, Reviewed and Corrections made Patient Social History Marrital Status: Employed/Student: retired Alcohol Use: Denies Use Smoking Status: Never a Smoker Past Medical History Cardiac: Coronary Artery Disease, Heart Attack, Hypertension Review of Systems Constitutional: weakness Respiratory: dyspnea on exertion Cardiovascular: palpitations Physical Exam Physical Exam General Appearance: No Apparent Distress Eyes: Right Eye Normal Inspection, Right Eye PERRL HEENT: PERRL/EOMI, TMs Normal, Normal ENT Inspection, Pharynx Normal, Moist Mucous Membranes Neck: Full Range of Motion, Normal Inspection, Non Tender Respiratory: Chest Non Tender, Lungs Clear, No Accessory Muscle Use, No Respiratory Distress, Decreased Breath Sounds Cardiovascular: No Edema, No Gallop, No JVD, No Murmur, Normal Peripheral Pulses, Irregularly Irregular Gastrointestinal: Normal Bowel Sounds, No Organomegaly, No Pulsatile Mass, Non Tender, Soft Back: Normal Inspection, No CVA Tenderness, No Vertebral Tenderness Extremity: Normal Capillary Refill, Normal Inspection, Normal Range of Motion, Non Tender, No Calf Tenderness, No Pedal Edema Neurologic/Psychiatric: Alert, Oriented x3, No Motor/Sensory Deficits, Normal Mood/Affect Skin: Normal Color, Warm/Dry Lymphatic: No Adenopathy Assessment/Plan Admission Diagnosis Assessment: CHF PAF Hypoxia O2 dependence Advanced age Plan: IV diuretics Home meds Cardiology appreciated along with Pulmo Admission Status: Inpatient Order (span 2 midnights) Reason for Inpatient Admission: chf with hypoxia Diagnosis/Problems Diagnosis/Problems (1) New onset atrial fibrillation Status: Acute (2) Oxygen dependent (3) Hypoxia Status: Acute (4) Elevated brain natriuretic peptide (BNP) level Status: Acute Supervisory-Addendum Brief Verification & Attestation Participated in pt care: history, MDM, physical Personally performed: exam, history, MDM, supervision of care Care discussed with: Medical Student Procedures: n/a Results interpretation: Verified all documentation Verification and Attestation of Medical Student E/M Service A medical student performed and documented this service in my presence. I reviewed and verified all information documented by the medical student and made modifications to such information, when appropriate. I personally performed the physical exam and medical decision making. Kim Landa, Dec 03, 2019,19:52 BRADY PEARSON,MED STUDENT Dec 03, 2019 13:57 KIM LANDA DO Dec 03, 2019 16:10
[2019-12-03 15:10] LABS: CREATINE KINASE MB 1.5 NG/ML (<6.6)
--- NOTE | 2019-12-03 16:05 | Pulmonary Consultation ---
History of Present Illness History of Present Illness Date Seen by Provider: Dec 03, 2019 Time Seen by Provider: 16:00 Date of Admission History of Present Illness 89yo with hx of CAD, CHF presented to ED secondary to worsening SOB and palpitations over the last week. Pt has home oxygen at 3 liters per min. She had recent pneumonia 09/11 and was treated with ABx. She denies fevers, chills, chest pain, n/v/d, or abdominal pain. Allergies and Home Medications Allergies Coded Allergies: codeine (Verified Allergy, Unknown, 12/02/19) hydrocodone (Verified Allergy, Unknown, 12/02/19) tramadol (Verified Allergy, Unknown, 12/02/19) Home Medications Acetaminophen 325 Mg Tablet, 650 MG PO Q8H PRN for PAIN-MILD (1-4), (Reported) Albuterol Sulfate 2.5 Mg/3 Ml Vial.neb, 1 VIAL NEB Q8H, (Reported) Alprazolam 0.5 Mg Tablet, 0.5 MG PO HS, (Reported) Amlodipine Besylate 10 Mg Tablet, 10 MG PO DAILY, (Reported) Aspirin 81 Mg Tablet.dr, 81 MG PO DAILY, (Reported) Clopidogrel Bisulfate 75 Mg Tablet, 75 MG PO DAILY, (Reported) Diphenhydramine HCl 25 Mg Capsule, 25 MG PO HS, (Reported) Folic Acid/Vitamin B Comp W-C 400 Mcg Tablet, 400 MCG PO DAILY, (Reported) Furosemide 20 Mg Tablet, 20 MG PO DAILY, (Reported) Isosorbide Mononitrate 60 Mg Tab, 60 MG PO DAILY, (Reported) Levothyroxine Sodium 100 Mcg Tablet, 100 MCG PO 1800, (Reported) TAKES AN HOUR AFTER DINNER Losartan Potassium 25 Mg Tablet, 25 MG PO DAILY, (Reported) Metoprolol Succinate 50 Mg Tab.er.24h, 75 MG PO BID, (Reported) TAKE 1 & (50MG) TAB TWICE DAILY Omeprazole 20 Mg Capsule.dr, 20 MG PO DAILY, (Reported) Simvastatin 40 Mg Tablet, 20 MG PO HS, (Reported) TAKES OF A 40MG TO EQUAL 20MG AT BEDTIME Past Arvvkxf-Yhfwwg-Qogdlp Hx Past Med/Social Hx: Reviewed Nursing Past Med/Soc Hx Patient Social History Alcohol Use: Rarely Uses Recreational Drug Use: No Smoking Status: Former Smoker Recent Foreign Travel: No Contact w/Someone Who Travel: No Recent Infectious Disease Expo: No Immunizations Up To Date Date of Pneumonia Vaccine: Sep 02, 2018 Date of Influenza Vaccine: Jul 03, 2019 Past Medical History Surgeries: Yes (CYSTOCELE, RECTOCELE, ) CABG, Hysterectomy, Tonsillectomy Respiratory: Yes Pneumonia, COPD Cardiac: Yes Coronary Artery Disease, Heart Attack, Hypertension Neurological: No POOL HAND History: Hysterectomy Genitourinary: Yes UTI-Chronic Gastrointestinal: No Musculoskeletal: Yes Arthritis Endocrine: Yes (CONTROLLED WITH DIET) Diabetes, Non-Insulin dep HEENT: No Hearing Impairment: Hard of Hearing Cancer: No Psychosocial: No Integumentary: No Sepsis Event Evaluation Height, Weight, BMI Height: '" Weight: lbs. oz. kg; 29.38 BMI Method: Exam Exam Vital Signs Date Time Temp Pulse Resp B/P (MAP) Pulse Ox O2 Delivery O2 Flow Rate FiO2 12/03/19 14:50 37.5 116 88 36 12/03/19 11:30 37.5 115 20 127/70 (89) 92 Nasal Cannula 5.00 12/03/19 10:15 37.8 12/03/19 08:40 Nasal Cannula 5.00 12/03/19 08:32 88 Nasal Cannula 4.00 12/03/19 08:25 37.7 12/03/19 08:00 90 Nasal Cannula 4.00 12/03/19 08:00 37.7 116 24 134/68 (90) 92 Nasal Cannula 5.00 12/03/19 06:43 105 12/03/19 04:00 37.2 104 18 97/60 (72) 91 Nasal Cannula 4.00 12/03/19 01:00 94 12/03/19 00:00 37.3 113 20 127/74 (91) 91 Nasal Cannula 4.00 12/02/19 20:00 Nasal Cannula 4.00 12/02/19 19:47 36.8 92 20 122/57 (78) 92 Nasal Cannula 4.00 12/02/19 19:00 113 12/02/19 18:39 74 93 12/02/19 18:00 93 Nasal Cannula 4.00 12/02/19 17:35 103 12/02/19 17:16 36.5 97 20 123/63 90 Nasal Cannula 4.00 12/02/19 16:16 90 22 98/41 98 Nasal Cannula 3.00 I & O 12/03/19 07:00 Intake Total 640 ml Balance 640 ml Height & Weight Height: '" Weight: lbs. oz. kg; 29.38 BMI Method: General Appearance: No Apparent Distress, WD/WN HEENT: PERRL/EOMI, Pharynx Normal; No Pale Conjunctivae (L), No Pale Conjunctivae (R), No Pharyngeal Erythema Neck: Full Range of Motion, Non Tender, Supple; No Lymphadenopathy (L), No Lymphadenopathy (R) Respiratory: Lungs Clear, Normal Breath Sounds, No Accessory Muscle Use, No Respiratory Distress; No Crackles, No Wheezing Cardiovascular: No Edema, No JVD, Normal Peripheral Pulses, Irregularly Irregular Capillary Refill: Less Than 3 Seconds Gastrointestinal: normal bowel sounds, non tender, soft, no pulsatile mass Extremity: Normal Capillary Refill, Non Tender, No Calf Tenderness, No Pedal Edema Neurologic/Psychiatric: Alert, Oriented x3, No Motor/Sensory Deficits, Normal Mood/Affect Skin: Normal Color, Warm/Dry Lymphatic: No Adenopathy Results Lab Laboratory Tests 12/02/19 12:40 12/03/19 05:45 12/03/19 06:45 Assessment/Plan Assessment/Plan pulmonary edema probably secondary to diastolic dysfunction -Give 60mg of Lasix x 1 -BNP is 2831 -Doubt PNA -Check influenza and RVP Afib new onset -Cardiology following CAD with hx of CABG -Cardiology following ABBIE GUIDRY DO Dec 03, 2019 16:05
[2019-12-03] MEDS ORDERED: FUROSEMIDE 40 MG/4 ML INJ (LASIX) IVP NR (16:15)
[2019-12-03] MEDS ORDERED: KCL 10 MEQ TAB (MICRO K) PO NR (16:15)
[2019-12-03] MEDS: ONDANSETRON 4 MG (ZOFRAN) ORAL DISSOLVE TAB PO PRN ×2 (16:33→23:06)
--- NOTE | 2019-12-03 17:29 | NUR ---
CALLED DR LANDA PER DR FLOWERS'S REQUEST. HER STUDENT INFORMED HER ABOUT THE HEMATURIA. NEW ORDER: CONSULT DR SAUCEDO.
--- NOTE | 2019-12-03 17:31 | NUR ---
MESSAGE LEFT ON DR SAUCEDO'S CELL PHONE REGARDING CONSULT
--- NOTE | 2019-12-03 17:31 | Progress Note - Cardiology ---
Cardiology SOAP Progress Note Subjective: Less short of breath No palp or cp or syncope Generally weak No focal weakness No n/v/d Blood in urine Objective: I&O/Vital Signs 12/03/19 12/03/19 12/03/19 12/03/19 06:43 08:00 08:00 08:25 Temp 37.7 37.7 Pulse 105 116 Resp 24 B/P (MAP) 134/68 (90) Pulse Ox 92 90 O2 Delivery Nasal Cannula Nasal Cannula O2 Flow Rate 5.00 4.00 12/03/19 12/03/19 12/03/19 12/03/19 08:32 08:40 10:15 11:30 Temp 37.8 37.5 Pulse 115 Resp 20 B/P (MAP) 127/70 (89) Pulse Ox 88 92 O2 Delivery Nasal Cannula Nasal Cannula Nasal Cannula O2 Flow Rate 4.00 5.00 5.00 12/03/19 12/03/19 12/03/19 12:42 14:50 16:13 Temp 37.5 37.3 Pulse 97 116 113 Resp 18 B/P (MAP) 140/65 (90) Pulse Ox 88 90 O2 Delivery Nasal Cannula O2 Flow Rate 5.00 FiO2 36 12/02/19 23:59 Intake Total 540 ml Balance 540 ml Constitutional: AAO x 3, well-developed, well-nourished Respiratory: No accessory muscle use; other (good bilat air entry) Cardiovascular: irregularly irregular, S1 and S2, systolic murmur (soft JOEL at card base) Gastrointestional: No tender; soft; No guarding, No rebound; audible bowel sounds Extremities: No clubbing, No cyanosis, No significant edema Neurologic/Psychiatric: oriented x 3, other (moves all limbs equally) Skin: No rash on exposed areas, No ulcerations on exposed areas Results/Procedures: Labs Laboratory Tests 12/03/19 05:45: Sodium Level 139, Potassium Level 4.2, Chloride Level 92L, Carbon Dioxide Level 35H, Anion Gap 12, Blood Urea Nitrogen 14, Creatinine 0.70, Estimat Glomerular Filtration Rate > 60, BUN/Creatinine Ratio 20, Glucose Level 113H, Calcium Level 9.1, Procalcitonin 0.02, Thyroid Stimulating Hormone (TSH) 2.93 12/03/19 06:45: White Blood Count 5.9, Red Blood Count 4.26L, Hemoglobin 12.1, Hematocrit 41, Mean Corpuscular Volume 97, Mean Corpuscular Hemoglobin 28, Mean Corpuscular Hemoglobin Concent 29L, Red Cell Distribution Width 13.5, Platelet Count 178, Mean Platelet Volume 11.7H 12/03/19 16:20: Microbiology 12/02/19 Blood Culture - Preliminary, Resulted No growth Laboratory Tests 12/02/19 12:40 12/03/19 05:45 12/03/19 06:45 A/P: Assessment: Gross hematuria A Fib of undetermined age (first diagnosed on 12-02-19) CAD. S/p CABG in late at [facility]. Multiple cor stents since, but none in the last 5 years Echo of 12/03/19: LVEF 50-55%, biatrial enlargement, mild to mod MR & TR, RVSP 30 mmHg Plan: * We recommend that the Hospitalist service investigate patient's hematuria. Meanwhile, we will hold off on apixaban. Continue ASA * Heart rate not well controlled. Increase long-acting dilt * ASA for CAD (h/o CABG and PCI) * Monitor labs * Dr Hernandez covering Cardiology RICARDO Lund MD FACP [facility] Dec 03, 2019 17:31
--- NOTE | 2019-12-03 17:37 | NUR ---
DR SAUCEDO RETURNED THE CALL. HE IS NOW NOTIFIED OF THE CONSULT.
[2019-12-03] MEDS: RT-ALBUTEROL/IPRATROPIUM 3 ML (DUONEB) VIAL INH SCH ×2 (20:20→20:54)
--- NOTE | 2019-12-03 21:00 | NUR ---
1939 - PUBLIC HEALTH REGISTRAR notified RN that pt O2 sats will only go 86% max when taking vital signs. Went into the room and increased NC from 4L/min to 7L/min. Minimal improvement, pt not in distress. 1942 - Notified RT that O2 sats will not go up. Received instructions to keep increasing O2 and she will be down shortly. Increased O2 to 10L/min, pt O2 sats is between 89% - 90% maximum. Pt is not in distress. Stayed with the pt and kept pt on pulse oximeter to check saturation. 1949 - Assisted pt in going to bedside commode. Pt was short of breath afterwards. RT was in the room. RT gave treatments and changed pt to High Flow NC on 11L/min, O2 sats 93%. Kept pt on pulse oximeter and stayed with pt for another 30 minutes to make sure that she does not drop. Pt stabilized at 93% and was asleep when RN left the room.
[2019-12-03] MEDS: diphenhydrAMINE 25 MG TAB (BENADRYL) PO PRN (21:16)
[2019-12-03] MEDS: ALPRAZolam 0.5 MG (XANAX) TAB PO PRN (21:16)
[2019-12-03] MEDS ORDERED: FUROSEMIDE 40 MG/4 ML INJ (LASIX) ONE ×2 (23:17→23:24)
[2019-12-04] VITALS (22 sets, daily range): BP systolic 71–136; BP diastolic 53–64
[2019-12-04] MEDS ORDERED: FUROSEMIDE 40 MG/4 ML INJ (LASIX) IVP ONE ×3 (00:20→05:15)
--- NOTE | 2019-12-04 01:45 | NUR ---
2300 - ELIGIBILITY COUNSELOR notified RN that pt is not feeling well and requested something for Nausea. 2306 - Give PRN Zofran to pt. Pt verbalizes that she feels sick and is not well. Denies chest pain. Checked pt vital signs: BP = 127/64; HR = 116; RR = 24; O2 Sat = 68%. Increased flow rate to 15L/min, minimal improvement 2310 - Called RT to notify of O2 sat not improving. RT was in the room immediately. Other nurses also assisted including warehouse driver. Pt verbalized complaint of chest pain. Ordered Stat EKG. 2317 - Called Dr. Arias about pt status. Pt 02 sats at time of call was 78% and not going any higher. Received orders for Lasix 20mg, put pt on vapotherm, insert fernandez, transfer pt to ICU if possible and call Cardiology. 2323 -Administered Lasix 20mg 2325 - Called Dr. Hernandez. Received orders Lasix 20mg more. 232 - Fernandez inserted 2330 - Lasix 2nd dose of 20mg given. Per RT, pt put on AVAP. Vapotherm and BiPap did not work, pt sats would not go above 82% max. House sup informed this RN that ICU is currently full and cannot accommodate anymore pt. 2330 -Called Dr. Arias, updated on pt status and notified him that ICU is currently full. Pt denies chest pain and breathing better with AVAP; O2 sats current at 92%. Received order for 0.4mg q5 PRN Sublingual Nitro for Chest pain. 0000 - Pt is sleeping, no distress noted. O2 sats = 94%
[2019-12-04] MEDS: RT-ALBUTEROL/IPRATROPIUM 3 ML (DUONEB) VIAL INH SCH ×5 (02:19→22:15)
[2019-12-04 05:06] LABS: BASOPHILS % (AUTO) 0 % (0-10); EOSINOPHILS % (AUTO) 0 % (0-10); HEMATOCRIT 41 % (35-52); HEMOGLOBIN 12.2 G/DL (11.5-16.0); LYMPHOCYTES # (AUTO) 0.9 X 10^3 (1.0-4.0); LYMPHOCYTES % (AUTO) 10 % (12-44); MEAN CORPUSCULAR HEMOGLOBIN 29 PG (25-34); MEAN CORPUSCULAR HGB CONC 30 G/DL (32-36); MEAN CORPUSCULAR VOLUME 97 FL (80-99); MEAN PLATELET VOLUME 11.3 FL (7.4-10.4); MONOCYTES # (AUTO) 0.4 X 10^3 (0.0-1.0); MONOCYTES % (AUTO) 4 % (0-12); NEUTROPHILS # (AUTO) 8.2 X 10^3 (1.8-7.8); NEUTROPHILS % (AUTO) 86 % (42-75); PLATELET COUNT 234 10^3/uL (130-400); RED CELL DISTRIBUTION WIDTH 13.8 % (10.0-14.5); WHITE BLOOD COUNT 9.5 10^3/uL (4.3-11.0)
[2019-12-04 05:24] LABS: BILIRUBIN,TOTAL 0.3 MG/DL (0.1-1.0); CALCIUM 8.9 MG/DL (8.5-10.1); CREATININE SERUM 0.94 MG/DL (0.60-1.30); POTASSIUM 5.1 MMOL/L (3.6-5.0); TOTAL PROTEIN 7.9 GM/DL (6.4-8.2)
[2019-12-04 05:31] LABS: ABG BASE EXCESS 18.8 MMOL/L (-2.5-2.5); ABG OXYGEN SATURATION 96 % (94-100); ABG PO2 85 MMHG (79-93); ABG TCO2 50.7 MMOL/L (21.0-31.0)
[2019-12-04 05:36] LABS: ABG PCO2 120 MMHG (35-45); ABG PH 7.22 (7.37-7.43)
[2019-12-04 05:37] LABS: ALLENS TEST POS; INSPIRED O2 90%; PATIENT TEMP 37.1; VENTILATOR YES
--- NOTE | 2019-12-04 05:46 | Diagnostic Imaging Report ---
Indication: Respiratory distress Portable chest 5:32 AM There are postoperative changes from a median sternotomy. There is a right pleural effusion. There is some interstitial infiltrate throughout the right lung. Left lung is clear. IMPRESSION: Right lung infiltrate with right pleural effusion both of which appear to be new since 12/02/2019. Dictated by: Dictated on workstation # [id number]
[2019-12-04] MEDS: CATHETER FLUSH 10 ML SYR IV SCH ×3 (06:04→21:44)
--- NOTE | 2019-12-04 06:05 | NUR ---
0535 - Received critical ABG results from lab 0543 - Notified Dr. Palacios. Received orders to move pt to ICU
[2019-12-04] MEDS ORDERED: NS IV 1000 ML 2,000 ML ONE (06:35)
[2019-12-04] MEDS ORDERED: PROPOFOL DRIP (ICU) 100 ML IV ONE (06:38)
[2019-12-04 06:48] LABS: LYMPHOCYTES % (MANUAL) 9 %; MONOCYTES % (MANUAL) 6 %; NEUTROPHILS % (MANUAL) 85 %
[2019-12-04 06:49] LABS: HYPOCHROMASIA SLIGHT
--- NOTE | 2019-12-04 06:56 | Pulmonary Procedures ---
Pulmonary Procedures Date of Procedure Date of Service: Dec 04, 2019 Reason for Intubation: Acute respiratory failure Time of Intubation: 06:55 Intubation Method: orotracheal Tube Size: 8 Medications: Propofol, Versed Positive End Tide CO2: Yes Breath Sounds after Intubation: bilateral-equal Intubation Complications: no complications Post Intubation Xray: Yes ABBIE GUIDRY DO Dec 04, 2019 06:56
--- NOTE | 2019-12-04 06:59 | Pulmonary Progress Note ---
Subjective Time Seen by a Provider: 06:56 Subjective/Events-last exam Pt is in acute respiratory distress while on BiPAP. Sepsis Event Evaluation Height, Weight, BMI Height: '" Weight: lbs. oz. kg; 29.38 BMI Method: Focused Exam Lactate Level 12/02/19 12:40: Lactic Acid Level 1.11 Exam Exam Vital Signs Date Time Temp Pulse Resp B/P (MAP) Pulse Ox O2 Delivery O2 Flow Rate FiO2 12/04/19 05:51 23 90.00 12/04/19 04:00 37.1 126 17 133/63 (86) 95 NIV Bilevel 12/04/19 02:19 119 23 92 90.00 12/04/19 01:00 110 12/04/19 00:00 36.5 111 19 123/56 (78) 96 NIV Bilevel 12/03/19 23:37 124 24 92 100.00 12/03/19 20:42 37.3 120 93 100 12/03/19 20:31 37.3 110 18 139/64 (89) 93 Nasal Cannula 9.00 12/03/19 20:20 84 Nasal Cannula 7.00 12/03/19 20:00 93 High Flow N/C 11.00 12/03/19 19:00 120 12/03/19 16:13 37.3 113 18 140/65 (90) 90 Nasal Cannula 5.00 12/03/19 14:50 37.5 116 88 36 12/03/19 12:42 97 12/03/19 11:30 37.5 115 20 127/70 (89) 92 Nasal Cannula 5.00 12/03/19 10:15 37.8 12/03/19 08:40 Nasal Cannula 5.00 12/03/19 08:32 88 Nasal Cannula 4.00 12/03/19 08:25 37.7 12/03/19 08:00 90 Nasal Cannula 4.00 12/03/19 08:00 37.7 116 24 134/68 (90) 92 Nasal Cannula 5.00 I & O 12/04/19 07:00 Intake Total 1570 ml Output Total 450 ml Balance 1120 ml Height & Weight Height: '" Weight: lbs. oz. kg; 29.38 BMI Method: General Appearance: Severe Distress HEENT: PERRL/EOMI, TMs Normal, Normal ENT Inspection, Pharynx Normal, Moist Mucous Membranes Neck: Full Range of Motion, Normal Inspection, Non Tender Respiratory: Crackles, Decreased Breath Sounds, Rhonci Cardiovascular: No Edema, No Gallop, No JVD, No Murmur, Normal Peripheral Pulses, Irregularly Irregular Capillary Refill: Less Than 3 Seconds Gastrointestinal: normal bowel sounds, non tender, soft, no pulsatile mass Extremity: Normal Capillary Refill, Normal Inspection, Normal Range of Motion, Non Tender, No Calf Tenderness, No Pedal Edema Neurologic/Psychiatric: Depressed Affect, Disoriented Skin: Normal Color, Warm/Dry Lymphatic: No Adenopathy Results Lab Laboratory Tests 12/02/19 12:40 12/03/19 05:45 12/03/19 06:45 12/04/19 04:28 Assessment/Plan Assessment/Plan Acute respiratory failure -Stat ABG shows C02 of 122 while on BiPAP -Pt transferred up to ICU and intubated. -Continue Rocephin and Vanco -Arriaga cultures pendng pulmonary edema probably secondary to diastolic dysfunction -Give 60mg of Lasix x 1 -BNP is 2831 -Doubt PNA -pending influenza and RVP Afib new onset -Cardiology following CAD with hx of CABG -Cardiology following ABBIE GUIDRY DO Dec 04, 2019 06:59
[2019-12-04] MEDS ORDERED: NOREPINEPHRINE 4 MG/250 ML 250 ML IV ONE (07:13)
[2019-12-04] MEDS: NS IV 1000 ML 1,000 ML IV SCH ×5 (07:53→22:00)
[2019-12-04] MEDS: PROPOFOL DRIP (ICU) 100 ML IV SCH ×3 (07:54→21:06)
--- NOTE | 2019-12-04 08:24 | Diagnostic Imaging Report ---
INDICATION: Patient is intubated, check ET tube EXAMINATION: Single view chest dated 12/04/2019 COMPARISON: 12/04/2019 at 5:07 a.m. FINDINGS: The heart is prominent. Pulmonary vasculature is congested. Findings of edema seen in both lungs, right worse than left, with infiltrates throughout the right lung slightly worsened especially the right lung base. Very small bilateral effusions are seen. ET tube tip is approximately 1.5 cm from the otf. There is a right sided jugular line with the tip just entering the right atrium. It could be pulled back slightly as clinically indicated. There is a feeding tube coursing beneath the diaphragm. Sternotomy wires and cardiac stents also noted. IMPRESSION: 1. Worsening findings throughout the right lung with tubes and lines as described. The right jugular line tip just enters the right atrium and could be pulled back slightly if clinically indicated. Dictated by: Dictated on workstation # [id number]
[2019-12-04] MEDS: RT-ALBUTEROL/IPRATROPIUM 3 ML (DUONEB) VIAL INH PRN (08:25)
--- NOTE | 2019-12-04 08:40 | Cardiology Progress Note ---
Subjective Date Seen by Provider: Dec 04, 2019 Time Seen by Provider: 08:36 Subjective/Events-last exam Patient is sedated and intubated Deteriorated overnight, started to have increasing shortness of breath, transferred to intensive care unit, continue to deteriorate and she was intubated earlier Review of Systems General: Other (Sedated and intubated) Focused Exam Lactate Level 12/02/19 12:40: Lactic Acid Level 1.11 Objective-Cardiology Exam Last Set of Vital Signs Vital Signs 12/03/19 12/04/19 12/04/19 12/04/19 20:42 04:00 07:00 07:54 Temp 37.1 Pulse 120 Resp 20 B/P (MAP) 103/59 Pulse Ox 93 O2 Delivery Mechanical Ventilator O2 Flow Rate 100.00 FiO2 100 Capillary Refill : Less Than 3 Seconds I&O Intake and Output 12/04/19 00:00 Intake Total 1470 ml Balance 1470 ml Intake Oral 1470 ml # Voids 3 General: Other (Sedated and intubated) HEENT: Atraumatic Neck: Supple, No JVD Lungs: Other (Bilateral rhonchi) Heart: Normal S1, Normal S2, Other (Atrial fibrillation with rapid ventricular response) Abdomen: Normal Bowel Sounds, Soft Extremities: No Clubbing, No Cyanosis Skin: No Rashes Neuro: Other (Sedated and intubated) Psych/Mental Status: Other (Sedated and intubated) Results Lab Laboratory Tests 12/04/19 04:28 A/P-Cardiology Admission Diagnosis Acute respiratory failure Atrial fibrillation with rapid ventricular response Hypotensive shock Hematuria Assessment/Plan Acute respiratory failure, severe hypoxemia, ventilator dependent, managed by Dr. Palacios Atrial fibrillation, tachycardia, unable to tolerate Cardizem due to hypotension Hypotensive shock. Managed by primary care team Hematuria, evaluate urine analysis. Coronary artery disease, history of CABG done in , multiple stents done in the past. Monitor troponin, evaluate EKG. Echocardiogram done on December 03, 2019, reported by Dr. Ruggiero to have normal LV size and function, ejection fraction 50-55 percent, biatrial enlargement, mild to moderate MR and TR, PA pressure 30 mmHg Clinical Quality Measures DVT/VTE Risk/Contraindication: Risk Factor Score Per Nursin RFS Level Per Nursing on Admit: 4+=Very High YANNICK TIJERINA MD Dec 04, 2019 08:40
[2019-12-04] MEDS ORDERED: IOHEXOL 350 MG/ML 100 ML (OMNIPAQUE 350) VIAL IV ONE (08:45)
[2019-12-04] MEDS ORDERED: PHARMACY TO DOSE IV SCH (08:45)
[2019-12-04] MEDS ORDERED: NS 100 ML (IVPB) BAG IV ONE (08:45)
[2019-12-04] MEDS ORDERED: HOLD METFORMIN - RECEIVED CONTRAST 20 ML VIAL IV SCH (08:45)
[2019-12-04] MEDS ORDERED: CATHETER FLUSH 10 ML SYR IV PRN (08:45)
--- NOTE | 2019-12-04 08:47 | NUR ---
Dr. Palacios read x-ray report et OK's use of central line
--- NOTE | 2019-12-04 08:55 | Occ Therapy Progress Note ---
Therapy Progress Note Due to change in medical status and transferring to ICU, discharge OT services. Will need new orders. LOREN LARIOS Dec 04, 2019 08:55
[2019-12-04] MEDS ORDERED: dilTIAZem120 MG (CARDIZEM CD) CAP PO SCH (09:00)
[2019-12-04 09:05] LABS: ABG BASE EXCESS 13.4 MMOL/L (-2.5-2.5); ABG OXYGEN SATURATION 93 % (94-100); ABG PCO2 48 MMHG (35-45); ABG PO2 51 MMHG (79-93); ABG TCO2 39.3 MMOL/L (21.0-31.0)
[2019-12-04 09:06] LABS: ALLENS TEST YES-POS; INSPIRED O2 50; VENTILATOR YES
--- NOTE | 2019-12-04 09:20 | NUR ---
Dr. Hernandez at bedside et EKG obtained. Order to not give cardizem at this time due to lower BP
--- NOTE | 2019-12-04 09:30 | NUR ---
PHARMACY TO DOSE VANCOMYCIN: WT 69.7KG, SCr 0.94, CrCl 34.4, LOADING DOSE 20MG/KG X 69.7KG ~ 1250MG 12/03 @ 1000; MAINT DOSE 15MG/KG X 69.7KG ~ 1G Q24H; VANCOMYCIN TROUGH DUE 12/06 @0900; IF TROUGH <10 OR >20, HOLD 12/06 1000 DOSE.
--- NOTE | 2019-12-04 09:30 | Occ Therapy Progress Note ---
Therapy Progress Note OT orders received for eval/ treat. Pt on mechanical ventilation/ sedated. OT to hold therapy on this date and check on status tomorrow; OT to eval/ treat when pt medically stable and able to participate in skilled therapy session. HUSAM SERRANO OTR Dec 04, 2019 09:30
--- NOTE | 2019-12-04 09:35 | Diagnostic Imaging Report ---
PROCEDURE: CT angiography of the chest with contrast. TECHNIQUE: Multiple contiguous axial images were obtained through the chest after uneventful bolus administration of intravenous contrast. 3D reconstructed CTA MIP acquisitions were also performed. Auto Exposure Controls were utilized during the CT exam to meet ALARA standards for radiation dose reduction. INDICATION: Respiratory failure and hypoxia. No prior CT chest study is available for comparison. Patient is intubated. Tip of the ET tube is above the otf. There is a nasogastric tube passing into the stomach. There are changes of median sternotomy. Both thyroid lobes appear to be enlarged. There are bilateral pleural effusions, slightly larger on the right. No axillary lymphadenopathy is seen. No definite mediastinal or hilar lymphadenopathy is detected. There is an area of parenchymal consolidation in the posterior right upper lobe. Minimal groundglass infiltrate in the right upper lobe is noted as well. There is also areas of parenchymal consolidation in the right lower lobe. There is minimal consolidation or atelectasis in the posterior left lower lobe. Upper abdomen is unremarkable. IMPRESSION: Bilateral pleural effusions, right greater with areas of bilateral consolidation, greatest in the right upper and right lower lobe. Findings are most consistent with pneumonia. Dictated by: Dictated on workstation # [id number]
--- NOTE | 2019-12-04 09:41 | Physical Therapy Progress Note ---
Therapy Progress Note Patient transferred to ICU due to decline in medical/pulmonary status. PT will require new orders when patient is deemed medically stable and able to actively participate with skilled therapy. NBA ELIZONDO PT Dec 04, 2019 09:41
[2019-12-04] MEDS ORDERED: VANCOMYCIN 1250 MG/NS 250 ML IVPB IV NR ×2 (10:00)
[2019-12-04] MEDS: cefTRIAXone FOR IV USE 1,000 MG in WATER (STERILE) FOR INJECTION 10 ML IV SCH (10:13)
[2019-12-04] MEDS: ASPIRIN 81 MG CHEW (CHILDREN'S ASA) NG SCH (10:14)
[2019-12-04] MEDS ORDERED: SUCCINYLCHOLINE INJ 100 MG/5 ML SYR INJ ONE (10:43)
[2019-12-04] MEDS ORDERED: fentaNYL INJECTION 100 MCG/2 ML AMP INJ ONE (10:43)
[2019-12-04] MEDS ORDERED: MIDAZOLAM 5 MG/5 ML (VERSED) VIAL IJ ONE (10:43)
--- NOTE | 2019-12-04 11:00 | NUR ---
Dr. Hernandez notified of continued afib with rate 120-130 et SBP 100-120 with MAP 70-80. Order to start cardizem gtt
--- NOTE | 2019-12-04 11:14 | NUR ---
"Received dietary consult regarding pt's vent status. Est. kcal needs: 1552-9800 kcal | 20-25 kcal/kg Est. Pro needs: 70-84 g Pro | 1.0-1.2 g Pro/kg If pt is to remain NPO for more than 3d, would recommend the following TF: Glucerna 1.5 at goal rate of 40ml/hr. Begin at 10ml/hr and increase by 10ml q6h for tolerance. Monitor gastric residuals for tolerance. At goal rate, provides 1440 kcal (21 kcal/kg); 79 g Pro (1.1 g Pro/kg); and 729ml free water. Flush with 75ml H2O q4h for hydration status. With flushes, provides 1179ml free water. Will continue to follow and reassess as pt needs, intake, and status change. Jose Vale, MS, RD, LD"
--- NOTE | 2019-12-04 11:15 | NUR ---
Pastoral care visit, w/pts son and daughter at bedside, pt on vent, provided support and listening presence.
[2019-12-04] MEDS: dilTIAZem DRIP PRE-MIX 125 ML IV SCH ×2 (11:24→21:06)
[2019-12-04 11:49] LABS: ABG BASE EXCESS 12.2 MMOL/L (-2.5-2.5); ABG OXYGEN SATURATION 96 % (94-100); ABG PCO2 51 MMHG (35-45); ABG PH 7.47 (7.37-7.43); ABG PO2 68 MMHG (79-93); ABG TCO2 38.1 MMOL/L (21.0-31.0)
[2019-12-04 11:50] LABS: ALLENS TEST YES-POS; INSPIRED O2 50%; PATIENT TEMP 37.4; VENTILATOR YES
--- NOTE | 2019-12-04 12:03 | CONSULTATION REPORT ---
DATE OF SERVICE: 12/04/2019 ATTENDING PHYSICIAN: Dr. Roche. SUMMARY: An 89-year-old white lady, admitted yesterday with hypoxia, atypical pneumonia, was found to have some gross hematuria; however, overnight she had severe hypoxia and hypotension. She was transferred to the unit and is on the respirator. Her urine through the catheter is completely clear and buffy. IMPRESSION: Gross hematuria, resolved. PLAN: See her p.r.n. Job ID: [id number] DocumentID: [id number] Dictated Date: 12/04/2019 10:50:52 First Aid Instructor Date: 12/04/2019 12:02:21 Dictated By: KEVIN SAUCEDO MD
--- NOTE | 2019-12-04 12:56 | Progress Note - Hospitalist ---
BRADY PEARSON,MED STUDENT 12/04/19 1256: Subjective HPI/CC On Admission Date Seen by Provider: Dec 04, 2019 Time Seen by Provider: 08:35 CC: SOB with palpitations HPI: This is an 89yoWF clinic pt of Dr. Carvajal who has a PMH of CAD previous bypass and stents placed who was recently placed on home O2 in July at two liters and recently increased to 3 who had gone to urgent care, found to have pneumonia and CHF in August but she was found to have AF with RVR and congestive heart failure. Dr. Ruggiero has evaluated her, ordered and echocardiogram and will closely monitor and has been managing IV diuresis. Dr. Palacios will be consulted due to O2 dependency. Subjective/Events-last exam Patient's condition deteriorated this morning and she was transferred to ICU and intubated around 6:30 due to respiratory failure. Nursing noted that overnight she became more SOB and failed BiPAP, and morning labs showed severe acidosis and a CO2 of 122. CXR this am shows worsened R lung base infiltrates. Repeat procalcitonin is .03. Patient's family is currently at bedside. Focused Exam Lactate Level 12/02/19 12:40: Lactic Acid Level 1.11 Objective Exam Vital Signs Vital Signs Date Time Temp Pulse Resp B/P (MAP) Pulse Ox O2 Delivery O2 Flow Rate FiO2 12/04/19 14:16 114 109/68 12/04/19 12:14 37.6 12/04/19 11:00 16 97 Mechanical Ventilator 80.00 12/04/19 08:26 50 Capillary Refill : Less Than 3 Seconds General Appearance: Chronically ill, Other (Sedated on vent) Neck: Non Tender, Supple; No Thyromegaly Respiratory: Decreased Breath Sounds, Rhonci Cardiovascular: No Edema, No Murmur, Normal Peripheral Pulses Gastrointestinal: Normal Bowel Sounds, Soft; No Distended Extremity: Normal Capillary Refill, No Pedal Edema Neurologic/Psychiatric: Other (Sedated on vent) Results/Procedures Lab Laboratory Tests 12/04/19 04:28 Patient resulted labs reviewed. Assessment/Plan Assessment and Plan Assess & Plan/Chief Complaint Assessment: Acute respiratory failure New onset Atrial Fibrillation CAD s/p CABG in late and stent placement Elevated pro-BNP Atypical PNA -procalcitonin .03 Hematuria HTN NIDDM Plan: Patient now in ICU and intubated On vancomycin Respiratory viral panel pending SCD's for DVT prophylaxis Clinical Quality Measures DVT/VTE Risk/Contraindication: Risk Factor Score Per Nursin RFS Level Per Nursing on Admit: 4+=Very High KIM LANDA DO 12/04/19 1514: Subjective Subjective/Events-last exam Pt had an eventful night Pt required intubation this morning due to hypercapnia of 120 Dr. Palacios and cardiology had evaluated her yesterday and this came as a surprise since she decompensated so quickly Pneumonia noted Updated family who are very frightened about the whole situation Pt at 89yo and has had a progressive decline per son and daughter so this may very well become more complicated and prognosis remains guarded due to advanced age Review of Systems Pulmonary: Dyspnea Objective Exam General Appearance: No Apparent Distress, Other (Intubated) Respiratory: Crackles, Wheezing Cardiovascular: Regular Rate, Rhythm Neurologic/Psychiatric: Other (Intubated and sedated) Assessment/Plan Assessment and Plan Assess & Plan/Chief Complaint VDRF Prognosis guarded Diagnosis/Problems Diagnosis/Problems (1) Ventilator dependence (2) Hypoxia Status: Acute (3) Atypical pneumonia Status: Acute (4) Elevated brain natriuretic peptide (BNP) level Status: Acute (5) Oxygen dependent (6) New onset atrial fibrillation Status: Acute Supervisory-Addendum Brief Verification & Attestation Participated in pt care: history, MDM, physical Personally performed: exam, history, MDM, supervision of care Care discussed with: Medical Student Procedures: n/a Results interpretation: Verified all documentation Verification and Attestation of Medical Student E/M Service A medical student performed and documented this service in my presence. I reviewed and verified all information documented by the medical student and made modifications to such information, when appropriate. I personally performed the physical exam and medical decision making. Kim Landa, Dec 04, 2019,21:59 BRADY PEARSON,MED STUDENT Dec 04, 2019 12:56 KIM LANDA DO Dec 04, 2019 15:14
--- NOTE | 2019-12-04 14:04 | NUR ---
CM/SS: Visited with family as to pt current status and plan for pt after discharge Plan: Undetermined at this time due to her ICU status Summary: This family is known to this worker as they are from [place]. Pt had some difficulty in the night and was transferred to ICU based on shortness of breath and oxygen saturation. Pt is on the vent at this time. Daughter (Darin) and son (Louie) are at the bedside. They are coping at this time, unsure what pt's status will be in a few days. They are educated on her improving and being able to be weaned from the vent and then transitioning back to 4th floor and options of home care, or jail are discussed. They would like pt to be able to return home. It is too early at this time to determine that. They verbalize understanding. Daughter reports that pt shared that she had talked with this worker on yesterday. Daughter shares that someone will be with pt round the clock, and that her grandchildren are coming from [facility] later today. This worker will follow up at a later time.
--- OUTSIDE RECORDS SUMMARY | 2019-12-04 14:08 | XMS REPORT | Clinical Summary ---
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
--- OUTSIDE RECORDS SUMMARY | 2019-12-04 14:08 | XMS REPORT | Clinical Summary ---
Author Author Admin, Kimber Estrada Organization [facility] Address Unknown Phone Unavailable Allergies, Adverse Reactions, [...] Directive Description Start Date PERMISSION TO SHARE Vital Signs Date Name Value Unit Range Description blood pressure, diastolic, repeated by physician 78 BP tafoya blood pressure, diastolic 78 mm[Hg] BP tafoya blood pressure, systolic, repeated by physician 120 BP sys blood pressure, systolic 120 mm[Hg] BP sys height E&M 60 [in_us] Bdy height pulse rate E&M 88 /min Heart rate temperature E&M 98.0 [degF] Body temp erature weight E&M 146 [lb_av] Weight Measure d Diagnostic Results Date Name Value Unit Range Description Office Visit: CN-cystocele - PMH sexually transmitted disease no risk noted Encounters Code Encounter Date Provider Facility CPT-76191 Level 4 New Patient 15:26: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
--- OUTSIDE RECORDS SUMMARY | 2019-12-04 14:08 | XMS REPORT | Clinical Summary ---
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
--- OUTSIDE RECORDS SUMMARY | 2019-12-04 14:08 | XMS REPORT | Clinical Summary ---
Author Author Admin, Kimber Estrada Organization [facility] Address Unknown Phone Unavailable Allergies, Adverse [...] noted Encounters Code Encounter Date Provider Facility CPT-15277 Level 4 New Patient 15:26:09 LETTERER Charlie lezama MD [facility] Procedures Code Procedure Name Date Entry Date Standard Desc ription CPT-21188 Pessary fitting and insertion 15:26:09 LETTERER
--- OUTSIDE RECORDS SUMMARY | 2019-12-04 14:08 | XMS REPORT | Clinical Summary ---
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
--- OUTSIDE RECORDS SUMMARY | 2019-12-04 14:09 | XMS REPORT | Continuity of Care Document ---
Author Organization Unknown Address Unknown Phone Unavailable Allergies Active Description Code Type Severity Reaction Onset Reported/Identified Relationship to Patient Clinical Status Yes No Allergy Information Available [id number] Drug Allergy Unknown N/A 019 Yes codeine [id number] Drug Allergy Unknown N/A 12/02/2019 Yes hydrocodone [id number] Drug Aller gy Unknown N/A 12/02/2019 Yes tramadol [id number] Drug Allergy Unknown N/A 12/02/2019 Medications There is no data. 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 06/26/2019 QUENTIN JORDAN MD Ot K57.30 DVRTCLOS OF LG INT W/O PERFORATION OR AB 06/26/2019 QUENTIN JORDAN MD Ot N28 .1 CYST OF KIDNEY, ACQUIRED 07/03/2019 QUENTIN JORDAN MD Ot K57.30 DVRTCLOS OF LG INT W/O PERFORATION OR AB 07/03/2019 QUENTIN JORDAN MD Ot N28 .1 CYST OF KIDNEY, ACQUIRED 08/29/2019 QUENTIN JORDAN MD Ot I51 .7 CARDIOMEGALY 08/29/2019 QUENTIN JORDAN MD Ot J44 .9 CHRONIC OBSTRUCTIVE PULMONARY DISEASE, U 08/29/2019 QUENTIN JORDAN MD Ot R30 .0 DYSURIA 09/03/2019 QUENTIN JORDAN MD Ot I51 .7 CARDIOMEGALY 09/03/2019 QUENITN JORDAN MD Ot J44 .9 CHRONIC OBSTRUCTIVE PULMONARY DISEASE, U 09/03/2019 QUENTIN JORDAN MD Ot R30 .0 DYSURIA 11/11/2019 COLTHARP DO, JI A Ot R30 .0 DYSURIA 12/02/2019 QUENITN JORDAN MD, Ot K57.30 DVRTCLOS OF LG INT W/O PERFORATION OR AB 12/02/2019 QUENTIN JORDAN MD, Ot N28 .1 CYST OF KIDNEY, ACQUIRED 12/02/2019 QUENTIN JORDAN MD, Ot I51 .7 CARDIOMEGALY 12/02/2019 QUENTIN JORDAN MD, Ot J44 .9 CHRONIC OBSTRUCTIVE PULMONARY DISEASE, U 12/02/2019 QUENTIN JORDAN MD Ot R30 .0 DYSURIA 12/02/2019 COLTHARP DO, JI A Ot R30 .0 DYSURIA 2019 KARYNA BLAS MD Ot E11. 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 0 HYPERTENSIVE HEART DISEASE WITH HEART FA 2019 KARYNA BLAS MD Ot I25. 10 ATHSCL HEART DISEASE OF [place] CORONARY 2019 KARYNA BLAS MD Ot I25. 2 OLD MYOCARDIAL INFARCTION 2019 KARYNA BLAS MD Ot I48. 91 UNSPECIFIED ATRIAL FIBRILLATION 2019 KARYNA BLAS MD Ot I50. 9 HEART FAILURE, UNSPECIFIED 2019 KARYNA BLAS MD Ot J18. 9 PNEUMONIA, UNSPECIFIED ORGANISM 2019 KARYNA BLAS MD, Ot J44. 9 CHRONIC OBSTRUCTIVE PULMONARY DISEASE, U 2019 KARYNA BLAS MD Ot M19. 91 PRIMARY OSTEOARTHRITIS, UNSPECIFIED SITE 2019 KARYNA BLAS MD Ot R09. 02 HYPOXEMIA 2019 KARYNA BLAS MD, Ot Z87.891 PERSONAL HISTORY OF NICOTINE DEPENDENCE 2019 KARYNA BLAS MD Ot Z95. 1 PRESENCE OF AORTOCORONARY BYPASS GRAFT 2019 KARYNA BLAS MD Ot Z95. 5 PRESENCE OF CORONARY ANGIOPLASTY IMPLANT 2019 KARYNA BLAS MD Ot E11. 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 2 OLD MYOCARDIAL INFARCTION 2019 KARYNA BLAS MD Ot I48. 91 UNSPECIFIED ATRIAL FIBRILLATION 2019 KARYNA BLAS MD Ot I50. 9 HEART FAILURE, UNSPECIFIED 2019 KARYNA BLAS MD Ot J18. 9 PNEUMONIA, UNSPECIFIED ORGANISM 2019 KARYNA BLAS MD Ot J44. 9 CHRONIC OBSTRUCTIVE PULMONARY DISEASE, U 2019 KARYNA BLAS MD Ot M19. 91 PRIMARY OSTEOARTHRITIS, UNSPECIFIED SITE 2019 KARYNA BLAS MD Ot R09. 02 HYPOXEMIA 2019 KARYNA BLAS MD Ot Z87.891 PERSONAL HISTORY OF NICOTINE DEPENDENCE 2019 KARYNA BLAS MD Ot Z95. 1 PRESENCE OF AORTOCORONARY BYPASS GRAFT 2019 KARYNA BLAS MD Ot Z95. 5 PRESENCE OF CORONARY ANGIOPLASTY IMPLANT 2019 KENNY DO, JI A Ot R30 .0 DYSURIA 12/04/2019 KARYNA BLAS MD Ot E11. 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 2 OLD MYOCARDIAL INFARCTION 12/04/2019 KARYNA BLAS MD Ot I48. 91 UNSPECIFIED ATRIAL FIBRILLATION 12/04/2019 KARYNA BLAS MD Ot I50. 9 HEART FAILURE, UNSPECIFIED 12/04/2019 KARYNA BLAS MD Ot J18. 9 PNEUMONIA, UNSPECIFIED ORGANISM 12/04/2019 KARYNA BLAS MD Ot J44. 9 CHRONIC OBSTRUCTIVE PULMONARY DISEASE, U 12/04/2019 KARYNA BLAS MD Ot M19. 91 PRIMARY OSTEOARTHRITIS, UNSPECIFIED SITE 12/04/2019 KARYNA BLAS MD Ot R09. 02 HYPOXEMIA 12/04/2019 KARYNA BLAS MD Ot Z87.891 PERSONAL HISTORY OF NICOTINE DEPENDENCE 12/04/2019 WAN DANIELS, KARYNA Ferrer Ot Z95. 1 PRESENCE OF AORTOCORONARY BYPASS GRAFT 12/04/2019 KARYNA BLAS MD Ot Z95. 5 PRESENCE OF CORONARY ANGIOPLASTY IMPLANT Procedures There is no data. Results Test Result Range [facility] - 02/05/19 08:20 GLUCOSE 113 mg/dL 65-99 UREA NITROGEN (BUN) 14 mg/dL 7-25 CREATININE 0.68 mg/dL 0.60-0.88 eGFR NON-AFR. [place] 79 mL/min/1.73m2 > OR = 60 eGFR 91 mL/min/1.73m2 > OR = 60 BUN/CREATININE RATIO NOT APPLICABLE (calc) 6-22 SODIUM 139 mmol/L 135-146 POTASSIUM 4.3 mmol/L 3.5-5.3 CHLORIDE 99 mmol/L 98-110 CARBON DIOXIDE 31 mmol/L 20-32 CALCIUM 9.1 mg/dL 8.6-10.4 PROTEIN, TOTAL 7.4 g/dL 6.1-8.1 ALBUMIN 4.0 g/dL 3.6-5.1 GLOBULIN 3.4 g/dL (calc) 1.9-3.7 ALBUMIN/GLOBULIN RATIO 1.2 (calc) 1.0-2. 5 BILIRUBIN, TOTAL 0.4 mg/dL 0.2-1.2 ALKALINE PHOSPHATASE 59 U/L 33-130 AST 15 U/L 10-35 ALT 10 U/L 6-29 TSH - 02/05/19 08:20 TSH 3.04 mIU/L 0.40-4.50 A1C - 02/05/19 08:20 HEMOGLOBIN A1c 6.4 % of total Hgb <5.7 CULTURE, URINE - 02/07/19 14:56 CULTURE, URINE, ROUTINE SEE NOTE NRG TSH - 05/02/19 09:23 TSH TNP mIU/L NRG A1C - 05/02/19 09:23 HEMOGLOBIN A1c TNP % of total Hgb NRG LIPID PANEL - 05/02/19 09:23 CHOLESTEROL, TOTAL 134 mg/dL <200 HDL CHOLESTEROL 47 mg/dL >50 TRIGLYCERIDES 178 mg/dL <150 LDL-CHOLESTEROL 62 mg/dL (calc) NRG CHOL/HDLC RATIO 2.9 (calc) <5.0 NON HDL CHOLESTEROL 87 mg/dL (calc) <130 [facility] - 05/02/19 09:23 GLUCOSE 120 mg/dL 65-99 UREA NITROGEN (BUN) 14 mg/dL 7-25 CREATININE 0.70 mg/dL 0.60-0.88 eGFR NON-AFR. AR[place]ENT[place] 78 mL/min/1.73m2 > OR = 60 eGFR 90 mL/min/1.73m2 > OR = 60 BUN/CREATININE RATIO NOT APPLICABLE (calc) 6-22 SODIUM 130 mmol/L 135-146 POTASSIUM 4.9 mmol/L 3.5-5.3 CHLORIDE 95 mmol/L 98-110 CARBON DIOXIDE 27 mmol/L 20-32 CALCIUM 9.2 mg/dL 8.6-10.4 PROTEIN, TOTAL 7.1 g/dL 6.1-8.1 ALBUMIN 3.9 g/dL 3.6-5.1 GLOBULIN 3.2 g/dL (calc) 1.9-3.7 ALBUMIN/GLOBULIN RATIO 1.2 (calc) 1.0-2. 5 BILIRUBIN, TOTAL 0.5 mg/dL 0.2-1.2 ALKALINE PHOSPHATASE 61 U/L 33-130 AST 16 U/L 10-35 ALT 9 U/L 6-29 TSH - 05/02/19 09:23 TSH 1.99 mIU/L 0.40-4.50 A1C - 05/02/19 09:23 HEMOGLOBIN A1c 6.2 % of total Hgb <5.7 UA W/ MICROSCOPY - 05/21/19 10:34 COLOR YELLOW YELLOW APPEARANCE CLOUDY CLEAR SPECIFIC GRAVITY 1.011 1.001-1.035 PH 7.0 5.0-8.0 GLUCOSE NEGATIVE NEGATIVE BILIRUBIN NEGATIVE NEGATIVE KETONES NEGATIVE NEGATIVE OCCULT BLOOD 3+ NEGATIVE PROTEIN 1+ NEGATIVE NITRITE NEGATIVE NEGATIVE LEUKOCYTE ESTERASE 3+ NEGATIVE WBC 40-60 /HPF < OR = 5 RBC 40-60 /HPF < OR = 2 SQUAMOUS EPITHELIAL CELLS 10-20 /HPF < O R = 5 BACTERIA FEW /HPF NONE SEEN HYALINE CAST NONE SEEN /LPF NONE SEEN TRANSITIONAL EPITHELIAL CELLS 0-5 /HPF < OR = 5 [id number] - 06/05/19 10:28 Serum or plasma urea nitrogen measurement (mass/volume ) 13 mg/dL 7-18 Serum or plasma creatinine measurement (mass/volume) 0.69 mg/dL 0.60-1.30 Serum or plasma urea nitrogen/creatinine mass ratio 19 NRG Serum or plasma creatinine measurement w ith calculation of estimated glomerular filtration rate > NRG Complete blood count (CBC) with automate d white blood cell (WBC) differential - 08/07/19 11:50 Blood leukocytes automated count (number/volume) 9.3 10*3/uL 4.3-11.0 Blood erythrocytes automated count (number/volume) 4.90 10*6/uL 4.35-5.85 Venous blood hemoglobin measurement (mass/volume) 13.5 g/dL 13.3-17.7 Blood hematocrit (volume fraction) 44 % 40-54 Automated erythrocyte mean corpuscular volume 90 [ foz_us] 80-99 Automated erythrocyte mean corpuscular h emoglobin (mass per erythrocyte) 28 pg 25-34 Automated erythrocyte mean corpuscular h emoglobin concentration measurement (mass/volume) 31 g/dL 32-36 Automated erythrocyte distribution width ratio 14. 4 % 10.0- 14.5 Automated blood platelet count (count/volume) 220 10*3/uL 130-400 Automated blood platelet mean volume measurement 11.6 [foz_us] 7.4-10.4 Automated blood neutrophils/100 leukocytes 58 % 42-75 Automated blood lymphocytes/100 leukocytes 30 % 12-44 Blood monocytes/100 leukocytes 9 % 0-12 Automated blood eosinophils/100 leukocytes 3 % 0-10 Automated blood basophils/100 leukocytes 1 % 0-10 Blood neutrophils automated count (number/volume) 5.3 10*3 1.8-7.8 Blood lymphocytes automated count (number/volume) 2.8 10*3 1.0-4.0 Blood monocytes automated count (number/volume) 0. 8 10*3 0.0-1.0 Automated eosinophil count 0.2 10*3/uL 0 .0-0.3 Automated blood basophil count (count/volume) 0.1 10*3/uL 0.0-0.1 Whole blood basic metabolic panel - 07/25 01/10 11:50 Serum or plasma sodium measurement (moles/volume) 137 mmol/L 135-145 Serum or plasma potassium measurement (moles/volume) 4.4 mmol/L 3.6-5.0 Serum or plasma chloride measurement (moles/volume) 96 mmol/L 98-107 Carbon dioxide 31 mmol/L 21-32 Serum or plasma anion gap determination (moles/volume) 10 mmol/L 5-14 Serum or plasma urea nitrogen measurement (mass/volume ) 14 mg/dL 7-18 Serum or plasma creatinine measurement (mass/volume) 0.72 mg/dL 0.60-1.30 Serum or plasma urea nitrogen/creatinine mass ratio 19 NRG Serum or plasma creatinine measurement w ith calculation of estimated glomerular filtration rate > NRG Serum or plasma glucose measurement (mass/volume) 102 mg/dL 70-105 Serum or plasma calcium measurement (mass/volume) 9.2 mg/dL 8.5-10.1 Complete urinalysis with reflex to cultu re - 08/07/19 13:16 Urine color determination YELLOW NRG Urine clarity determination TURBID NR G Urine pH measurement by test strip 6.5 5-9 Specific gravity of urine by test strip 1.020 1.016-1.022 Urine protein assay by test strip, semi-quantitative 2+ NEGATIVE Urine glucose detection by automated test strip NE GATIVE NEGATIVE Erythrocytes detection in urine sediment by light micr oscopy 3+ NEGATIVE Urine ketones detection by automated test strip TR XIOMARA NEGATIVE Urine nitrite detection by test strip NEGATIVE NEGATIVE Urine total bilirubin detection by test strip 1+ NEGATIVE Urine urobilinogen measurement by automated test strip (mass/volume) 1.0 mg/dL < = 1.0 Urine leukocyte esterase detection by dipstick 3+ NEGATIVE Automated urine sediment erythrocyte cou nt by microscopy (number/high power field) [HPF] NRG Automated urine sediment leukocyte count by microscopy (number/high power field) TNTC NRG Bacteria detection in urine sediment by light microsco py FEW NRG Squamous epithelial cells detection in u rine sediment by light microscopy RARE NRG Crystals detection in urine sediment by light microsco py NONE NRG Casts detection in urine sediment by light microscopy NONE NRG Mucus detection in urine sediment by light microscopy NONE NRG Complete urinalysis with reflex to culture YES NRG Bacterial urine culture - 08/07/19 13:16 Bacterial urine culture [id number] NRG COLONY COUNT >100,000/ML NRG FTX;REPORTABLE SUSCEPTIBILITY REPORTED 08-10-, 0 939 NRG Dirithromycin susceptibility test by dis k diffusion - 08/07/19 13:16 Vancomycin susceptibility test by minimum inhibitory c oncentration 1 NRG Levofloxacin susceptibility test by minimum inhibitory concentration > NRG Ampicillin susceptibility test by minimum inhibitory c oncentration 1 NRG Nitrofurantoin susceptibility test by mi nimum inhibitory concentration <= NRG Linezolid susceptibility test by minimum inhibitory co ncentration 2 NRG Daptomycin susc KAIN <= NRG Complete urinalysis with reflex to cultu re - 11/10/19 13:18 Urine color determination YELLOW NRG Urine clarity determination SL CLOUDY N RG Urine pH measurement by test strip 7.0 5-9 Specific gravity of urine by test strip 1.010 1.016-1.022 Urine protein assay by test strip, semi-quantitative 1+ NEGATIVE Urine glucose detection by automated test strip NE GATIVE NEGATIVE Erythrocytes detection in urine sediment by light micr oscopy 3+ NEGATIVE Urine ketones detection by automated test strip NE GATIVE NEGATIVE Urine nitrite detection by test strip NEGATIVE NEGATIVE Urine total bilirubin detection by test strip NEGA TIVE NEGATIVE Urine urobilinogen measurement by automated test strip (mass/volume) 0.2 mg/dL < = 1.0 Urine leukocyte esterase detection by dipstick NEG ATIVE NEGATIVE Automated urine sediment erythrocyte cou nt by microscopy (number/high power field) > [HPF] NRG Automated urine sediment leukocyte count by microscopy (number/high power field) [HPF] NRG Bacteria detection in urine sediment by light microsco py TRACE NRG Crystals detection in urine sediment by light microsco py NONE NRG Casts detection in urine sediment by light microscopy NONE NRG Mucus detection in urine sediment by light microscopy NEGATIVE NRG Complete urinalysis with reflex to culture YES NRG Bacterial urine culture - 11/10/19 13:18 Bacterial urine culture 3 OR MORE NRG COLONY COUNT 40,000 CFU/ML NRG FTX;REPORTABLE SUGGESTING PROBABLE COLLECTION NRG FREE TEXT ENTRY 2 CONTAMINATION WITH SKIN ELVIS NRG FREE TEXT ENTRY 3 NO SUSCEPTIBILITY PERFORMED NRG Complete blood count (CBC) with automate d white blood cell (WBC) differential - 12/02/19 12:40 Blood leukocytes automated count (number/volume) 7.1 10*3/uL 4.3-11.0 Blood erythrocytes automated count (number/volume) 4.19 10*6/uL 4.35-5.85 Venous blood hemoglobin measurement (mass/volume) 11.8 g/dL 11.5-16.0 Blood hematocrit (volume fraction) 39 % 35-52 Automated erythrocyte mean corpuscular volume 94 [ foz_us] 80-99 Automated erythrocyte mean corpuscular h emoglobin (mass per erythrocyte) 28 pg 25-34 Automated erythrocyte mean corpuscular h emoglobin concentration measurement (mass/volume) 30 g/dL 32-36 Automated erythrocyte distribution width ratio 13. 2 % 10.0- 14.5 Automated blood platelet count (count/volume) 213 10*3/uL 130-400 Automated blood platelet mean volume measurement 11.2 [foz_us] 7.4-10.4 Automated blood neutrophils/100 leukocytes 59 % 42-75 Automated blood lymphocytes/100 leukocytes 28 % 12-44 Blood monocytes/100 leukocytes 1 % 0-12 Automated blood eosinophils/100 leukocytes 10 % 0-10 Automated blood basophils/100 leukocytes 1 % 0-10 Blood neutrophils automated count (number/volume) 4.2 10*3 1.8-7.8 Blood lymphocytes automated count (number/volume) 2.0 10*3 1.0-4.0 Blood monocytes automated count (number/volume) 0. 7 10*3 0.0-1.0 Automated eosinophil count 0.1 10*3/uL 0 .0-0.3 Automated blood basophil count (count/volume) 0.0 10*3/uL 0.0-0.1 Blood lactic acid measurement (moles/vol ume) - 12/02/19 12:40 Blood lactic acid measurement (moles/volume) 1.11 mmol/L 0.50-2.00 Comprehensive metabolic panel - 12/02/19 12:40 Serum or plasma sodium measurement (moles/volume) 137 mmol/L 135-145 Serum or plasma potassium measurement (moles/volume) 3.9 mmol/L 3.6-5.0 Serum or plasma chloride measurement (moles/volume) 90 mmol/L 98-107 Carbon dioxide 40 mmol/L 21-32 Serum or plasma anion gap determination (moles/volume) 7 mmol/L 5-14 Serum or plasma urea nitrogen measurement (mass/volume ) 17 mg/dL 7-18 Serum or plasma creatinine measurement (mass/volume) 0.74 mg/dL 0.60-1.30 Serum or plasma urea nitrogen/creatinine mass ratio 23 NRG Serum or plasma creatinine measurement w ith calculation of estimated glomerular filtration rate > NRG Serum or plasma glucose measurement (mass/volume) 99 mg/dL 70-105 Serum or plasma calcium measurement (mass/volume) 9.3 mg/dL 8.5-10.1 Serum or plasma total bilirubin measurement (mass/volu me) 0.3 mg/dL 0.1-1.0 Serum or plasma alkaline phosphatase catrachita surement (enzymatic activity/volume) 55 U/L 40-136 Serum or plasma aspartate aminotransfera se measurement (enzymatic activity/volume) 18 U/L 5-34 Serum or plasma alanine aminotransferase measurement (enzymatic activity/volume) 12 U/L 0-55 Serum or plasma protein measurement (mass/volume) 7.5 g/dL 6.4-8.2 Serum or plasma albumin measurement (mass/volume) 3.0 g/dL 3.2-4.5 CALCIUM CORRECTED 10.1 mg/dL 8.5-10.1 TROPONIN I FS - 12/02/19 12:40 TROPONIN I FS < 0.30 <0.30 PROBNP FS - 12/02/19 12:40 PROBNP FS 2831.0 pg/mL <75.0 Serum or plasma creatine kinase MB measu rement (enzymatic activity/volume) - 12/02/19 12:40 Serum or plasma creatine kinase MB measu rement (enzymatic activity/volume) 1.5 ng/mL <6.6 Bacterial blood culture - 12/02/19 12:40 Bacterial blood culture NG NRG Whole blood basic metabolic panel - 11/22 10/13 05:45 Serum or plasma sodium measurement (moles/volume) 139 mmol/L 135-145 Serum or plasma potassium measurement (moles/volume) 4.2 mmol/L 3.6-5.0 Serum or plasma chloride measurement (moles/volume) 92 mmol/L 98-107 Carbon dioxide 35 mmol/L 21-32 Serum or plasma anion gap determination (moles/volume) 12 mmol/L 5-14 Serum or plasma urea nitrogen measurement (mass/volume ) 14 mg/dL 7-18 Serum or plasma creatinine measurement (mass/volume) 0.70 mg/dL 0.60-1.30 Serum or plasma urea nitrogen/creatinine mass ratio 20 NRG Serum or plasma creatinine measurement w ith calculation of estimated glomerular filtration rate > NRG Serum or plasma glucose measurement (mass/volume) 113 mg/dL 70-105 Serum or plasma calcium measurement (mass/volume) 9.1 mg/dL 8.5-10.1 THYROID STIMULATING HORMONE - 12/03/19 0 5:45 THYROID STIMULATING HORMONE 2.93 u[iU]/mL 0.35-4.94 PROCALCITONIN (PCT) - 12/03/19 05:45 PROCALCITONIN (PCT) 0.02 ng/mL <0.10 Automated blood complete blood count (he mogram) panel - 12/03/19 06:45 Blood leukocytes automated count (number/volume) 5.9 10*3/uL 4.3-11.0 Blood erythrocytes automated count (number/volume) 4.26 10*6/uL 4.35-5.85 Venous blood hemoglobin measurement (mass/volume) 12.1 g/dL 11.5-16.0 Blood hematocrit (volume fraction) 41 % 35-52 Automated erythrocyte mean corpuscular volume 97 [ foz_us] 80-99 Automated erythrocyte mean corpuscular h emoglobin (mass per erythrocyte) 28 pg 25-34 Automated erythrocyte mean corpuscular h emoglobin concentration measurement (mass/volume) 29 g/dL 32-36 Automated erythrocyte distribution width ratio 13. 5 % 10.0- 14.5 Automated blood platelet count (count/volume) 178 10*3/uL 130-400 Automated blood platelet mean volume measurement 11.7 [foz_us] 7.4-10.4 Complete blood count (CBC) with automate d white blood cell (WBC) differential - 12/04/19 04:28 Blood leukocytes automated count (number/volume) 9.5 10*3/uL 4.3-11.0 Blood erythrocytes automated count (number/volume) 4.23 10*6/uL 4.35-5.85 Venous blood hemoglobin measurement (mass/volume) 12.2 g/dL 11.5-16.0 Blood hematocrit (volume fraction) 41 % 35-52 Automated erythrocyte mean corpuscular volume 97 [ foz_us] 80-99 Automated erythrocyte mean corpuscular h emoglobin (mass per erythrocyte) 29 pg 25-34 Automated erythrocyte mean corpuscular h emoglobin concentration measurement (mass/volume) 30 g/dL 32-36 Automated erythrocyte distribution width ratio 13. 8 % 10.0- 14.5 Automated blood platelet count (count/volume) 234 10*3/uL 130-400 Automated blood platelet mean volume measurement 11.3 [foz_us] 7.4-10.4 Automated blood neutrophils/100 leukocytes 86 % 42-75 Automated blood lymphocytes/100 leukocytes 10 % 12-44 Blood monocytes/100 leukocytes 4 % 0-12 Automated blood eosinophils/100 leukocytes 0 % 0-10 Automated blood basophils/100 leukocytes 0 % 0-10 Blood neutrophils automated count (number/volume) 8.2 10*3 1.8-7.8 Blood lymphocytes automated count (number/volume) 0.9 10*3 1.0-4.0 Blood monocytes automated count (number/volume) 0. 4 10*3 0.0-1.0 Automated eosinophil count 0.0 10*3/uL 0 .0-0.3 Automated blood basophil count (count/volume) 0.0 10*3/uL 0.0-0.1 Comprehensive metabolic panel - 12/04/19 04:28 Serum or plasma sodium measurement (moles/volume) 139 mmol/L 135-145 Serum or plasma potassium measurement (moles/volume) 5.1 mmol/L 3.6-5.0 Serum or plasma chloride measurement (moles/volume) 90 mmol/L 98-107 Carbon dioxide 40 mmol/L 21-32 Serum or plasma anion gap determination (moles/volume) 9 mmol/L 5-14 Serum or plasma urea nitrogen measurement (mass/volume ) 16 mg/dL 7-18 Serum or plasma creatinine measurement (mass/volume) 0.94 mg/dL 0.60-1.30 Serum or plasma urea nitrogen/creatinine mass ratio 17 NRG Serum or plasma creatinine measurement w ith calculation of estimated glomerular filtration rate 56 NRG Serum or plasma glucose measurement (mass/volume) 167 mg/dL 70-105 Serum or plasma calcium measurement (mass/volume) 8.9 mg/dL 8.5-10.1 Serum or plasma total bilirubin measurement (mass/volu me) 0.3 mg/dL 0.1-1.0 Serum or plasma alkaline phosphatase catrachita surement (enzymatic activity/volume) 58 U/L 40-136 Serum or plasma aspartate aminotransfera se measurement (enzymatic activity/volume) 22 U/L 5-34 Serum or plasma alanine aminotransferase measurement (enzymatic activity/volume) 15 U/L 0-55 Serum or plasma protein measurement (mass/volume) 7.9 g/dL 6.4-8.2 Serum or plasma albumin measurement (mass/volume) 4.0 g/dL 3.2-4.5 CALCIUM CORRECTED 8.9 mg/dL 8.5-10.1 Serum or plasma lithium measurement (mol es/volume) - 12/04/19 04:28 BNP PT 429.1 pg/mL <100.0 PROCALCITONIN (PCT) - 12/04/19 04:28 PROCALCITONIN (PCT) 0.03 ng/mL <0.10 Serum or plasma triglyceride measurement (mass/volume) - 12/04/19 04:28 Serum or plasma triglyceride measurement (mass/volume) 58 mg/dL <150 Arterial blood gas measurement - 0 05:17 Blood pCO2 120 mm[Hg] 35-45 Blood pO2 85 mm[Hg] 79-93 Arterial blood bicarbonate measurement (moles/volume) 47 mmol/L 23-27 Arterial blood base excess by calculation 18.8 mmo l/L -2.5-2.5 Arterial blood oxygen saturation measurement 96 % 94-100 * Inhaled oxygen flow rate 90% NRG Arterial blood pH measurement with patient temperature correction 7.22 7.37-7.43 Arterial blood carbon dioxide, total measurement (mole s/volume) 50.7 mmol/L 21.0-31.0 Body site RW NRG Assessment of wrist artery patency prior to arterial p uncture POS NRG Setting of ventilation mode YES NR G Measurement of body temperature 37.1 NRG Arterial blood gas measurement - 0 08:37 Blood pCO2 48 mm[Hg] 35-45 Blood pO2 51 mm[Hg] 79-93 Arterial blood bicarbonate measurement (moles/volume) 38 mmol/L 23-27 Arterial blood base excess by calculation 13.4 mmo l/L -2.5-2.5 Arterial blood oxygen saturation measurement 93 % 94-100 * Inhaled oxygen flow rate 50 NRG Arterial blood pH measurement with patient temperature correction 7.50 7.37-7.43 Arterial blood carbon dioxide, total measurement (mole s/volume) 39.3 mmol/L 21.0-31.0 Body site R RADIAL NRG Assessment of wrist artery patency prior to arterial p uncture YES-POS NRG Setting of ventilation mode YES NR G Measurement of body temperature 36.0 NRG Serum or plasma troponin i.cardiac measu rement (mass/volume) - 12/04/19 08:52 Serum or plasma troponin i.cardiac measurement (mass/v olume) 0.081 ng/mL <0.028 Influenza virus A and B antigen detectio n - 12/04/19 11:10 FLU RESULT NEGATIVE FOR INFLUENZA A AND B ANTIGENS BY IA NRG Arterial blood gas measurement - 0 11:27 Blood pCO2 51 mm[Hg] 35-45 Blood pO2 68 mm[Hg] 79-93 Arterial blood bicarbonate measurement (moles/volume) 37 mmol/L 23-27 Arterial blood base excess by calculation 12.2 mmo l/L -2.5-2.5 Arterial blood oxygen saturation measurement 96 % 94-100 * Inhaled oxygen flow rate 50% NRG Arterial blood pH measurement with patient temperature correction 7.47 7.37-7.43 Arterial blood carbon dioxide, total measurement (mole s/volume) 38.1 mmol/L 21.0-31.0 Body site LT RAD NRG Assessment of wrist artery patency prior to arterial p uncture YES-POS NRG Setting of ventilation mode YES NR G Measurement of body temperature 37.4 NRG Encounters ACCT No. Visit Date/Time Discharge Status Pt. Type Provider Facility Loc./Unit Complaint [id number] 09/13/2019 10:15:00 09/13/2019 23:59: 59 CLS Outpatient QUENTIN JORDAN [facility] [id number] 05/21/2019 10:20:00 Document Registration [id number] 05/02/2019 09:30:00 Document Registration [id number] 05/02/2019 09:23:00 Document Registration [id number] 02/07/2019 13:30:00 Document Registration [id number] 02/05/2019 08:15:00 Document Registration [id number] 11/10/2019 13:11:00 23:59:59 CLS Outpatient JI COX DO [facility] LAB FS R30.0 [id number] 08/07/2019 11:22:00 23:59:59 CLS Outpatient QUENTIN JORDAN MD Via [facility] RAD FS R30.0 R06.02 [id number] 06/05/2019 10:18:00 019 23:59:59 CLS Outpatient QUENTIN JORDAN MD Via [facility] RAD FS HEMATURIA [id number] 12/02/2019 15:11:[address] Inpatient WAN DANIELS, KARYNA Ferrer Via [facility] ICU HYPOXIA,ATYPICAL PNEMONIA,HI GH BNP,UTERINE FIB [id number] 08/03/2018 11:19:02 ACT Unknown Charlie Garcia MD
[2019-12-04] MEDS: inSUlin ASPART (NovoLOG) 1 UNIT/0.01 ML (CHARGE PER UNIT) SC SCH ×3 (15:08→23:36)
--- NOTE | 2019-12-04 17:39 | NUR ---
Notified Dr. Hernandez of continued a fib 130s. Order received for 1x IV dig
[2019-12-04] MEDS ORDERED: DIGOXIN 0.25 MG/ML (LANOXIN) 2 ML AMP IV ONE (17:45)
--- OUTSIDE RECORDS SUMMARY | 2019-12-04 19:42 | XMS REPORT | Continuity of Care Document ---
Author Organization Unknown Address Unknown Phone Unavailable Allergies Active Description Code Type Severity Reaction Onset Reported/Identified Relationship to Patient Clinical Status Yes No Allergy Information Available [id number] Drug Allergy Unknown N/A 019 Yes codeine [id number] Drug Allergy Unknown N/A 12/02/2019 Yes hydrocodone [id number] Drug Aller gy Unknown N/A 12/02/2019 Yes tramadol [id number] Drug Allergy Unknown N/A 12/02/2019 Medications There [...] JORDAN MD Ot I51 .7 CARDIOMEGALY 09/03/2019 QUENTIN JORDAN MD Ot J44 .9 CHRONIC OBSTRUCTIVE PULMONARY DISEASE, U 09/03/2019 QUENTIN JORDAN MD Ot R30 .0 DYSURIA 11/11/2019 COLTHARP DO, JI A Ot R30 .0 DYSURIA 12/02/2019 QUENTIN JORDAN MD, 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 10 ATHSCL HEART DISEASE OF [place] CORONARY 2019 KARYNA BLAS MD Ot I25. [...] Ot I25. 10 ATHSCL HEART DISEASE OF [place] CORONARY 2019 WAN DANIELS, KARYNA Ferrer Ot [...] Ot I25. 10 ATHSCL HEART DISEASE OF [place] CORONARY 12/04/2019 KARYNA BLAS MD Ot I25. [...] is no data. Results Test Result Range [facility] - 02/05/19 08:20 GLUCOSE 113 mg/dL 65-99 UREA NITROGEN (BUN) 14 mg/dL 7-25 CREATININE 0.68 mg/dL 0.60-0.88 eGFR NON-AFR. OMANI 79 mL/min/1.73m2 > OR = 60 eGFR [...] NON HDL CHOLESTEROL 87 mg/dL (calc) <130 [facility] - 05/02/19 09:23 GLUCOSE 120 mg/dL 65-99 UREA NITROGEN (BUN) 14 mg/dL 7-25 CREATININE 0.70 mg/dL 0.60-0.88 eGFR NON-AFR. OMANI 78 mL/min/1.73m2 > OR = 60 eGFR [...] CELLS 0-5 /HPF < OR = 5 [id number] - 06/05/19 10:28 Serum or plasma urea [...] culture - 08/07/19 13:16 Bacterial urine culture [id number] NRG COLONY COUNT >100,000/ML NRG FTX;REPORTABLE SUSCEPTIBILITY [...] G Measurement of body temperature 37.4 NRG Capillary blood glucose measurement by g lucometer (mass/volume) - 12/04/19 17:30 Capillary blood glucose measurement by glucometer (mas s/volume) 133 mg/dL 70-110 Encounters ACCT No. Visit Date/Time Discharge Status Pt. Type Provider Facility Loc./Unit Complaint [id number] 09/13/2019 10:15:00 09/13/2019 23:59: 59 CLS Outpatient QUENTIN JORDAN [facility] [id number] 05/21/2019 10:20:00 Document Registration [id number] 05/02/2019 09:30:00 Document Registration [id number] 05/02/2019 09:23:00 Document Registration [id number] 02/07/2019 13:30:00 Document Registration [id number] 02/05/2019 08:15:00 Document Registration [id number] 11/10/2019 13:11:00 020 23:59:59 CLS Outpatient JI COX DO Via [facility] LAB FS R30.0 [id number] 08/07/2019 11:22:00 019 23:59:59 CLS Outpatient QUENTIN JORDAN MD Via [facility] RAD FS R30.0 R06.02 [id number] 06/05/2019 10:18:00 019 23:59:59 CLS Outpatient JULIAN DANIELS, QUENTIN Ferrer Via [facility] RAD FS HEMATURIA [id number] 12/02/2019 15:11:[address] Inpatient WAN DANIELS, KARYNA Ferrer Via [facility] ICU HYPOXIA,ATYPICAL PNEMONIA,HI GH BNP,UTERINE FIB [id number] 08/03/2018 11:19:02 ACT Unknown Charlie Garcia MD
[2019-12-04] MEDS ORDERED: fentaNYL (OMNICELL DRIP KIT ONLY) 250 MCG/5 ML AMP ONE (20:22)
[2019-12-04] MEDS ORDERED: NS (IVPB) 100 ML ONE (20:22)
[2019-12-04] MEDS ORDERED: fentaNYL INJECTION 500 MCG in NS (IVPB) 100 ML IV SCH (20:30)
[2019-12-04] MEDS: fentaNYL 1,250 MCG/NS 250 ML DRIP IV SCH ×2 (20:53)
[2019-12-04] MEDS ORDERED: fentaNYL INJECTION 500 MCG in NS (IVPB) 100 ML IV ONE (21:00)
--- NOTE | 2019-12-04 21:00 | NUR ---
ORDERS FOR FENTANYL DRIP RECEIVED FROM E-ICU. DRIP KIT PULLED AND MIXED PRIOR TO PHARMACY SENDING DRIP. DRIP KIT ORDERED FOR ONE TIME DOSE AND HUNG AT THIS TIME.
[2019-12-05] VITALS (30 sets, daily range): BP systolic 102–146; BP diastolic 46–65
--- NOTE | 2019-12-05 01:49 | NUR ---
e-icu informed of pt urine output of 75 ml in last 4 hr. no new orders received.
[2019-12-05 01:57] LABS: BILIRUBIN,URINE 1+ (NEGATIVE); CLARITY,URINE TURBID; COLOR,URINE BROWN; GLUCOSE, URINE (UA) NEGATIVE (NEGATIVE); KETONES,URINE TRACE (NEGATIVE); LEUKOCYTE ESTERASE ,URINE TRACE (NEGATIVE); NITRITE,URINE POSITIVE (NEGATIVE); PH,URINE 6.5 (5-9); PROTEIN,URINE 3+ (NEGATIVE)
[2019-12-05 02:08] LABS: BACTERIA,URINE MODERATE /HPF; RBC,URINE TNTC /HPF
[2019-12-05 02:09] LABS: AMORPHOUS SEDIMENT,UR MOD AMOR URATES /LPF
[2019-12-05] MEDS: PROPOFOL DRIP (ICU) 100 ML IV SCH ×4 (02:10→18:58)
[2019-12-05] MEDS: RT-ALBUTEROL/IPRATROPIUM 3 ML (DUONEB) VIAL INH SCH ×6 (02:18→21:54)
[2019-12-05 03:11] LABS: BASOPHILS % (AUTO) 0 % (0-10); EOSINOPHILS % (AUTO) 0 % (0-10); HEMATOCRIT 35 % (35-52); HEMOGLOBIN 10.6 G/DL (11.5-16.0); LYMPHOCYTES % (AUTO) 10 % (12-44); MEAN CORPUSCULAR HEMOGLOBIN 28 PG (25-34); MEAN CORPUSCULAR HGB CONC 30 G/DL (32-36); MEAN CORPUSCULAR VOLUME 94 FL (80-99); MEAN PLATELET VOLUME 11.1 FL (7.4-10.4); MONOCYTES # (AUTO) 1.2 X 10^3 (0.0-1.0); MONOCYTES % (AUTO) 12 % (0-12); NEUTROPHILS # (AUTO) 8.1 X 10^3 (1.8-7.8); NEUTROPHILS % (AUTO) 78 % (42-75); PLATELET COUNT 168 10^3/uL (130-400); RED CELL DISTRIBUTION WIDTH 14.4 % (10.0-14.5); WHITE BLOOD COUNT 10.4 10^3/uL (4.3-11.0)
[2019-12-05 03:11] LABS: ABG BASE EXCESS 7.8 MMOL/L (-2.5-2.5); ABG OXYGEN SATURATION 96 % (94-100); ABG PCO2 51 MMHG (35-45); ABG PH 7.42 (7.37-7.43); ABG PO2 82 MMHG (79-93); ALLENS TEST YES-POS
[2019-12-05 03:12] LABS: INSPIRED O2 50%; PATIENT TEMP 36.8; VENTILATOR YES
[2019-12-05 03:31] LABS: BUN/CREATININE RATIO 22; CALCIUM 7.7 MG/DL (8.5-10.1); CARBON DIOXIDE 29 MMOL/L (21-32); CHLORIDE 98 MMOL/L (98-107); CREATININE SERUM 0.79 MG/DL (0.60-1.30); GFR ESTIMATED > 60; GLUCOSE 164 MG/DL (70-105); MAGNESIUM 1.5 MG/DL (1.6-2.4); PHOSPHORUS 2.5 MG/DL (2.3-4.7); POTASSIUM 3.7 MMOL/L (3.6-5.0); SODIUM 139 MMOL/L (135-145)
--- NOTE | 2019-12-05 03:48 | Pulmonary Progress Note ---
Sepsis Event Evaluation Height, Weight, BMI Height: '" Weight: lbs. oz. kg; 29.38 BMI Method: Focused Exam Lactate Level 12/02/19 12:40: Lactic Acid Level 1.11 Exam Exam Vital Signs Date Time Temp Pulse Resp B/P (MAP) Pulse Ox O2 Delivery O2 Flow Rate FiO2 12/05/19 03:12 96 Mechanical Ventilator 50 12/05/19 03:12 Mechanical Ventilator 50.00 12/05/19 03:09 36.8 12/05/19 02:18 112 16 96 50 12/05/19 02:18 96 Mechanical Ventilator 50 12/05/19 02:10 130/56 12/05/19 01:00 122 12/04/19 23:35 96 Mechanical Ventilator 50 12/04/19 23:00 111 15 122/55 (77) 95 Mechanical Ventilator 80.00 12/04/19 22:16 94 Mechanical Ventilator 50 12/04/19 22:16 114 16 94 50 12/04/19 22:00 103 16 136/59 (84) 96 Mechanical Ventilator 80.00 12/04/19 21:06 124/58 12/04/19 21:00 107 15 123/59 (80) 96 Mechanical Ventilator 80.00 12/04/19 20:16 96 Mechanical Ventilator 50 12/04/19 20:00 115 16 126/63 (84) 95 Mechanical Ventilator 80.00 12/04/19 19:02 37.9 12/04/19 19:00 116 14 131/61 (84) 94 Mechanical Ventilator 80.00 12/04/19 19:00 130 12/04/19 18:17 112 16 95 50 12/04/19 18:17 95 Mechanical Ventilator 50 12/04/19 18:00 126 16 124/56 (78) 95 Mechanical Ventilator 80.00 12/04/19 17:00 135 16 104/58 (73) 95 Mechanical Ventilator 80.00 12/04/19 16:00 137 15 116/57 (76) 96 Mechanical Ventilator 80.00 12/04/19 15:55 96 Mechanical Ventilator 50 12/04/19 15:18 37.5 12/04/19 15:06 112 16 95 50 12/04/19 15:00 113 16 116/61 (79) 95 Mechanical Ventilator 80.00 12/04/19 14:16 114 109/68 12/04/19 14:00 124 15 104/58 (73) 95 Mechanical Ventilator 80.00 12/04/19 13:20 121 12/04/19 13:00 105/57 (73) Mechanical Ventilator 80.00 12/04/19 12:14 37.6 12/04/19 12:00 113/61 (78) Mechanical Ventilator 80.00 12/04/19 12:00 96 Mechanical Ventilator 50 12/04/19 11:00 128 16 120/64 (82) 97 Mechanical Ventilator 80.00 12/04/19 10:00 123 21 125/64 (84) 94 Mechanical Ventilator 80.00 12/04/19 09:00 126 21 97 Mechanical Ventilator 80.00 12/04/19 08:26 120 22 92 50 12/04/19 08:00 96 Mechanical Ventilator 50 12/04/19 08:00 115 21 112/60 (77) 92 Mechanical Ventilator 80.00 12/04/19 07:54 120 103/59 12/04/19 07:00 110 12/04/19 07:00 115 20 112/60 (77) 93 Mechanical Ventilator 100.00 12/04/19 05:51 23 90.00 12/04/19 04:00 37.1 126 17 133/63 (86) 95 NIV Bilevel I & O 12/05/19 07:00 Intake Total 3687.5 ml Output Total 575 ml Balance 3112.5 ml Height & Weight Height: '" Weight: lbs. oz. kg; 29.38 BMI Method: General Appearance: No Apparent Distress, Other (Intubated) HEENT: PERRL/EOMI, TMs Normal, Normal ENT Inspection, Pharynx Normal, Moist Mucous Membranes Neck: Non Tender, Supple; No Thyromegaly Respiratory: Crackles, Wheezing Cardiovascular: Regular Rate, Rhythm Capillary Refill: Less Than 3 Seconds Gastrointestinal: normal bowel sounds, non tender, soft, no pulsatile mass Extremity: Normal Capillary Refill, No Pedal Edema Neurologic/Psychiatric: Other (Intubated and sedated) Skin: Normal Color, Warm/Dry Lymphatic: No Adenopathy Results Lab Laboratory Tests 12/03/19 05:45 12/03/19 06:45 12/04/19 04:28 12/05/19 03:00 Assessment/Plan Assessment/Plan Acute respiratory failure -Continue vent -Continue Rocephin and Vanco -Arriaga cultures pendng -MRSA pending pulmonary edema probably secondary to diastolic dysfunction -Give 40mg of Lasix BID -BNP is 2831 -Doubt PNA -pending influenza and RVP Sinus tach -Restart home Lopressor Hypomag Afib new onset -Cardiology following CAD with hx of CABG -Cardiology following ABBIE GUIDRY DO Dec 05, 2019 03:48
[2019-12-05] MEDS ORDERED: FUROSEMIDE 40 MG/4 ML INJ (LASIX) ONE (04:04)
[2019-12-05] MEDS: POTASSIUM CL 10MEQ/50ML IVPB 50 ML IV SCH ×9 (04:19→07:13)
[2019-12-05] MEDS: MAGNESIUM 1 GM/100 ML IVPB 100 ML IV SCH ×3 (04:19→04:28)
[2019-12-05] MEDS: FUROSEMIDE 40 MG/4 ML INJ (LASIX) IVP SCH ×3 (04:19→18:03)
[2019-12-05] MEDS: KCL 20 MEQ POWDER FOR ORAL SOLUTION NG SCH (04:28)
[2019-12-05] MEDS: NS IV 1000 ML 1,000 ML IV SCH (04:35)
[2019-12-05] MEDS: dilTIAZem DRIP PRE-MIX 125 ML IV SCH (04:55)
[2019-12-05] MEDS: CATHETER FLUSH 10 ML SYR IV SCH ×3 (05:31→21:38)
[2019-12-05] MEDS: inSUlin ASPART (NovoLOG) 1 UNIT/0.01 ML (CHARGE PER UNIT) SC SCH ×4 (05:31→23:50)
[2019-12-05] MEDS ORDERED: KCL 20 MEQ TAB (K-DUR) PO SCH (06:00)
--- NOTE | 2019-12-05 07:03 | Diagnostic Imaging Report ---
INDICATION: Shortness of breath. COMPARISON: 12/04/2019 FINDINGS: There is cardiomegaly. There is some venous congestion. There are bibasilar infiltrates. There are small bilateral pleural effusions. There is no pneumothorax. Mediastinum is unremarkable. Lines and tubes are in satisfactory positions. IMPRESSION: 1. Bibasilar infiltrates and bilateral pleural effusions. 2. Cardiomegaly and central pulmonary venous congestion. Dictated by: Dictated on workstation # [id number]
[2019-12-05] MEDS ORDERED: PANTOPRAZOLE 40 MG (PROTONIX) VIAL ONE (07:27)
[2019-12-05] MEDS: cefTRIAXone FOR IV USE 1,000 MG in WATER (STERILE) FOR INJECTION 10 ML IV SCH (07:40)
[2019-12-05] MEDS: PANTOPRAZOLE 40 MG (PROTONIX) VIAL IV SCH (07:40)
[2019-12-05] MEDS: meTOprolol TARTRATE 25 MG (LOPRESSOR) TABLET PO SCH ×2 (07:41→19:54)
[2019-12-05] MEDS: ASPIRIN 81 MG CHEW (CHILDREN'S ASA) NG SCH (07:41)
--- NOTE | 2019-12-05 08:01 | Occ Therapy Progress Note ---
Therapy Progress Note Pt continues on mechanical ventilation, OT to hold tx on this date and eval/ treat when medically stable and able to participate in skilled therapy sessions. HUSAM SERRANO OTR Dec 05, 2019 08:01
--- NOTE | 2019-12-05 08:12 | Physical Therapy Progress Note ---
Therapy Progress Note Patient transferred to ICU and is currently sedated and on ventilator. PT will require new orders to initiate treatment when patient is medically stable and able to actively participate with skilled therapy. NBA ELIZONDO PT Dec 05, 2019 08:12
--- NOTE | 2019-12-05 09:23 | Cardiology Progress Note ---
Subjective Date Seen by Provider: Dec 05, 2019 Time Seen by Provider: 09:19 Subjective/Events-last exam patient is sedated and intubated, I had a long visit with the family, discussed her history and her prognosis Review of Systems General: Other (unable to provide review of systems) Focused Exam Lactate Level 12/02/19 12:40: Lactic Acid Level 1.11 Objective-Cardiology Exam Last Set of Vital Signs Vital Signs 12/05/19 12/05/19 12/05/19 07:00 08:00 08:31 Temp 37.0 Pulse 90 Resp 17 B/P (MAP) 123/51 Pulse Ox 93 O2 Delivery Mechanical Ventilator O2 Flow Rate 50.00 FiO2 50 Capillary Refill : Less Than 3 Seconds I&O l Intake and Output 12/05/19 00:00 Intake Total 3787.5 ml Output Total 950 ml Balance 2837.5 ml Intake Oral 200 ml IV Total 3587.5 ml Output Urine Total 950 ml General: Other (Sedated and intubated) HEENT: Atraumatic Neck: Supple, No JVD Lungs: Other (Bilateral rhonchi) Heart: Normal S1, Normal S2, Other (Atrial fibrillation with rapid ventricular response) Abdomen: Normal Bowel Sounds, Soft Extremities: No Clubbing, No Cyanosis Skin: No Rashes Neuro: Other (Sedated and intubated) Psych/Mental Status: Other (Sedated and intubated) Results Lab Laboratory Tests 12/05/19 03:00 A/P-Cardiology Admission Diagnosis Acute respiratory failure Atrial fibrillation Hypotensive shock Hematuria Assessment/Plan Acute respiratory failure, severe hypoxemia, ventilator dependent, pneumonia and pulmonary edema, mild elevation in BNP, probably noncardiogenic pulmonary edema secondary to sepsis Congestive heart failure, acute on chronic left ventricular diastolic dysfunction worsened by atrial fibrillation, echocardiogram done on December 03, [address] Ruggiero to have normal LV size and function with EF 50-55 percent, biatrial enlargement, mild to moderate mitral regurgitation, tricuspid regurgitation, PA pressure 30 mmHg Paroxysmal atrial fibrillation, started to have palpitation about a week ago. Have hematuria, currently appeared that the urine is clearing up, I will restart Lovenox and monitor Hypotensive shock, blood pressure is better at this time, monitor blood pressure Coronary artery disease, history of CABG in 1989, total of 8 or 9 stents done in the past, has been following with a grails web application developer in [place], stopped seeing a grails web application developer for the past 5 years. Hematuria, clearing up, continue to monitor closely. Clinical Quality Measures DVT/VTE Risk/Contraindication: Risk Factor Score Per Nursin RFS Level Per Nursing on Admit: 4+=Very High YANNICK TIJERINA MD Dec 05, 2019 09:23
[2019-12-05] MEDS: DIGOXIN 0.25 MG/ML (LANOXIN) 2 ML AMP IV SCH (10:18)
[2019-12-05] MEDS: VANCOMYCIN 1 GM/NS 250 ML IVPB IV SCH ×2 (10:21)
[2019-12-05] MEDS: ENOXAPARIN 80 MG/0.8 ML (LOVENOX) SYR SC SCH ×2 (10:21→19:54)
--- NOTE | 2019-12-05 10:51 | Progress Note - Hospitalist ---
BRADY PEARSON,MED STUDENT 12/05/19 1051: Subjective HPI/CC On Admission Date Seen by Provider: Dec 05, 2019 Time Seen by Provider: 08:00 CC: SOB with palpitations HPI: This is an 89yoWF clinic pt of Dr. Carvajal who has a PMH of CAD previous bypass and stents placed who was recently placed on home O2 in July at two liters and recently increased to 3 who had gone to urgent care, found to have pneumonia and CHF in August but she was found to have AF with RVR and congestive heart failure. Dr. Ruggiero has evaluated her, ordered and echocardiogram and will closely monitor and has been managing IV diuresis. Dr. Palacios will be consulted due to O2 dependency. Subjective/Events-last exam Pt. intubated and sedated. Family currently at bedside, they report pt. has been responding by squeezing their fingers and has opened her eyes. Per nursing, she experienced continued a-fib yesterday and received Cardizem and Digoxin. This morning, her heart rate ranged from 104 to 126, so she was restarted on her home Lopressor, and her rate has been better controlled. Urine looks improved this morning, although still cloudy. Urinalysis this am shows UTI, she is currently on Rocephin and vanc. Dr. Palacios planning to attempt weaning from vent tomorrow. Dr. Hernandez restarting Lovenox. Focused Exam Lactate Level 12/02/19 12:40: Lactic Acid Level 1.11 Objective Exam Vital Signs Vital Signs Date Time Temp Pulse Resp B/P (MAP) Pulse Ox O2 Delivery O2 Flow Rate FiO2 12/05/19 09:40 81 16 94 40 12/05/19 08:31 123/51 12/05/19 08:00 37.0 12/05/19 08:00 Mechanical Ventilator 12/05/19 07:00 50.00 Capillary Refill : Less Than 3 Seconds General Appearance: Chronically ill, Other (sedated on vent) Neck: Non Tender, Supple; No Thyromegaly Respiratory: No Accessory Muscle Use, Decreased Breath Sounds, Rhonci Cardiovascular: No Edema, No Murmur, Normal Peripheral Pulses, Tachycardia Gastrointestinal: Normal Bowel Sounds, Soft; No Distended Extremity: Normal Capillary Refill, No Pedal Edema Neurologic/Psychiatric: Other (sedated on vent) Skin: Normal Color, Warm/Dry Results/Procedures Lab Laboratory Tests 12/05/19 03:00 Patient resulted labs reviewed. Assessment/Plan Assessment and Plan Assess & Plan/Chief Complaint Assessment: Acute respiratory failure - ventilator dependent New onset Atrial Fibrillation CAD s/p CABG in late and stent placement Elevated pro-BNP Atypical PNA - procalcitonin .03 Hematuria HTN NIDDM Plan: Patient intubated and sedated - Dr. Palacios will attempt to wean tomorrow On vancomycin and Rocephin Respiratory viral panel pending - negative for influenza A & B SCD's for DVT prophylaxis Family at bedside - discussed plan and prognosis Clinical Quality Measures DVT/VTE Risk/Contraindication: Risk Factor Score Per Nursin RFS Level Per Nursing on Admit: 4+=Very High KIM LANDA DO 12/05/192134: Subjective Subjective/Events-last exam Pt still on the ventilator BNP decreased to 189 Chest X-ray appears to be the same Weaning off the ventilator tomorrow Responding to family members Urine looks better after the Lasix given Lopressor is helping the heart rate Objective Exam General Appearance: Chronically ill Respiratory: Decreased Breath Sounds Cardiovascular: Irregularly Irregular, Tachycardia Assessment/Plan Assessment and Plan Assess & Plan/Chief Complaint VDRF Wean tomorrow Supervisory-Addendum Brief Verification & Attestation Participated in pt care: history, MDM, physical Personally performed: exam, history, MDM, supervision of care Care discussed with: Medical Student Procedures: n/a Results interpretation: Verified all documentation Verification and Attestation of Medical Student E/M Service A medical student performed and documented this service in my presence. I reviewed and verified all information documented by the medical student and made modifications to such information, when appropriate. I personally performed the physical exam and medical decision making. Kim Landa, Dec 05, 2019,21:34 BRADY PEARSON,MED STUDENT Dec 05, 2019 10:51 KIM LANDA DO Dec 05, 2019 21:35
[2019-12-05] MEDS ORDERED: DexMEDEtomidine 250 ML DRIP 250 ML IV ONE (12:10)
[2019-12-05] MEDS: DexMEDEtomidine 250 ML DRIP 250 ML IV SCH (12:40)
[2019-12-05 12:54] LABS: PARAINFLU 1 PCR Not Detected (Not Detected); PARAINFLU 2 PCR Not Detected (Not Detected); RSV PCR TEST Not Detected (Not Detected)
--- NOTE | 2019-12-05 14:23 | NUR ---
CM/SS: Followed up with family as to status of pt Plan: To be determined Summary: Family daughter (Shirley) and son (Louie) at the bedside. They are coping and feel as if pt will be able to come off the vent sometime tomorrow, based on her current status. They feel as if pt will need to get stronger before going home. Inpatient Rehab is discussed. Daughter feels as if pt would like that vs going to a skilled stay. This worker will follow up.
[2019-12-05] MEDS: fentaNYL 1,250 MCG/NS 250 ML DRIP IV SCH ×2 (19:54)
--- NOTE | 2019-12-05 21:58 | NUR ---
DECREASEDIO2 TO 30%, REPORTED TO RN Addendum: 12/05/19 at 2200 by NBA GARCES RT Amended: Links added.
[2019-12-06] VITALS (25 sets, daily range): BP systolic 98–134; BP diastolic 40–78
[2019-12-06] MEDS: DexMEDEtomidine 250 ML DRIP 250 ML IV SCH (01:30)
[2019-12-06] MEDS: PROPOFOL DRIP (ICU) 100 ML IV SCH (01:30)
[2019-12-06] MEDS: RT-ALBUTEROL/IPRATROPIUM 3 ML (DUONEB) VIAL INH SCH ×6 (02:16→22:06)
[2019-12-06 02:44] LABS: BASOPHILS % (AUTO) 0 % (0-10); EOSINOPHILS # (AUTO) 0.1 10^3/uL (0.0-0.3); EOSINOPHILS % (AUTO) 1 % (0-10); HEMATOCRIT 38 % (35-52); HEMOGLOBIN 11.6 G/DL (11.5-16.0); LYMPHOCYTES # (AUTO) 1.2 X 10^3 (1.0-4.0); LYMPHOCYTES % (AUTO) 11 % (12-44); MEAN CORPUSCULAR HEMOGLOBIN 28 PG (25-34); MEAN CORPUSCULAR HGB CONC 30 G/DL (32-36); MEAN CORPUSCULAR VOLUME 92 FL (80-99); MEAN PLATELET VOLUME 11.5 FL (7.4-10.4); MONOCYTES % (AUTO) 9 % (0-12); NEUTROPHILS # (AUTO) 8.8 X 10^3 (1.8-7.8); NEUTROPHILS % (AUTO) 80 % (42-75); PLATELET COUNT 150 10^3/uL (130-400); RED CELL DISTRIBUTION WIDTH 14.3 % (10.0-14.5); WHITE BLOOD COUNT 11.1 10^3/uL (4.3-11.0)
[2019-12-06 02:57] LABS: ABG BASE EXCESS 9.1 MMOL/L (-2.5-2.5); ABG OXYGEN SATURATION 91 % (94-100); ABG PCO2 43 MMHG (35-45); ABG PO2 54 MMHG (79-93); ABG TCO2 34.2 MMOL/L (21.0-31.0)
[2019-12-06 02:58] LABS: ALLENS TEST POSITIVE; INSPIRED O2 16; VENTILATOR YES
[2019-12-06 03:39] LABS: BUN/CREATININE RATIO 21; CARBON DIOXIDE 30 MMOL/L (21-32); CHLORIDE 97 MMOL/L (98-107); CREATININE SERUM 0.71 MG/DL (0.60-1.30); GFR ESTIMATED > 60; GLUCOSE 134 MG/DL (70-105); MAGNESIUM 1.8 MG/DL (1.6-2.4); PHOSPHORUS 3.9 MG/DL (2.3-4.7); POTASSIUM 4.1 MMOL/L (3.6-5.0); SODIUM 137 MMOL/L (135-145); TRIGLYCERIDES 95 MG/DL (<150)
[2019-12-06] MEDS: POTASSIUM CL 10MEQ/50ML IVPB 50 ML IV SCH (04:05)
[2019-12-06] MEDS: KCL 20 MEQ POWDER FOR ORAL SOLUTION NG SCH (04:05)
[2019-12-06] MEDS: MAGNESIUM 1 GM/100 ML IVPB 100 ML IV SCH (04:05)
--- NOTE | 2019-12-06 04:51 | Pulmonary Progress Note ---
Subjective Time Seen by a Provider: 04:48 Subjective/Events-last exam Sedated on vent Sepsis Event Evaluation Height, Weight, BMI Height: '" Weight: lbs. oz. kg; 29.38 BMI Method: Exam Exam Vital Signs Date Time Temp Pulse Resp B/P (MAP) Pulse Ox O2 Delivery O2 Flow Rate FiO2 12/06/19 04:00 125 18 126/68 (87) 95 Mechanical Ventilator 40.00 12/06/19 03:25 Mechanical Ventilator 40.00 12/06/19 03:02 94 Mechanical Ventilator 30 12/06/19 03:01 37.0 12/06/19 03:00 125 16 128/66 (86) 91 Mechanical Ventilator 30.00 12/06/19 02:16 131 17 92 40 12/06/19 02:00 124 16 117/67 (84) 92 Mechanical Ventilator 30.00 12/06/19 01:30 121 12/06/19 01:30 112/73 12/06/19 01:00 122 12/06/19 01:00 129 16 128/56 (80) 91 Mechanical Ventilator 30.00 12/06/19 00:00 121 18 122/65 (84) 91 Mechanical Ventilator 30.00 12/05/19 23:38 94 Mechanical Ventilator 30 12/05/19 23:30 36.6 12/05/19 23:00 120 16 118/65 (82) 90 Mechanical Ventilator 30.00 12/05/19 22:05 Mechanical Ventilator 30.00 12/05/19 22:00 97 18 112/53 (72) 93 Mechanical Ventilator 40.00 12/05/19 21:54 96 16 95 40 12/05/19 21:00 100 16 111/57 (75) 94 Mechanical Ventilator 40.00 12/05/19 20:03 90 Mechanical Ventilator 40 12/05/19 20:00 36.6 12/05/19 20:00 110 15 106/55 (72) 94 Mechanical Ventilator 40.00 12/05/19 19:00 112 15 109/59 (76) 93 Mechanical Ventilator 40.00 12/05/19 19:00 112 12/05/19 18:58 112 107/54 12/05/19 18:33 112 16 92 40 12/05/19 18:00 105 16 105/54 (71) 91 Mechanical Ventilator 50.00 12/05/19 17:00 106 16 112/52 (72) 91 Mechanical Ventilator 50.00 12/05/19 16:00 90 Mechanical Ventilator 40 12/05/19 16:00 105 16 102/62 (75) 90 Mechanical Ventilator 50.00 12/05/19 15:00 99 15 102/50 (67) 91 Mechanical Ventilator 50.00 12/05/19 14:13 107 16 93 40 12/05/19 14:00 114 16 104/47 (66) 93 Mechanical Ventilator 50.00 12/05/19 13:58 96 110/59 12/05/19 13:00 106 12/05/19 13:00 113 15 107/54 (71) 94 Mechanical Ventilator 50.00 12/05/19 12:40 96 110/59 12/05/19 12:00 93 Mechanical Ventilator 40 12/05/19 12:00 96 16 110/59 (76) 94 Mechanical Ventilator 50.00 12/05/19 12:00 37.2 12/05/19 11:00 85 15 112/51 (71) 95 Mechanical Ventilator 50.00 12/05/19 10:00 85 16 111/50 (70) 94 Mechanical Ventilator 50.00 12/05/19 09:40 81 16 94 40 12/05/19 09:00 84 15 109/50 (69) 94 Mechanical Ventilator 50.00 12/05/19 08:31 90 123/51 12/05/19 08:00 116 15 105/64 (78) 95 Mechanical Ventilator 50.00 12/05/19 08:00 37.0 12/05/19 08:00 93 Mechanical Ventilator 50 12/05/19 07:00 120 17 146/60 (88) 93 Mechanical Ventilator 50.00 12/05/19 07:00 115 12/05/19 06:43 104 16 96 40 12/05/19 06:00 113 15 135/61 (85) 96 Mechanical Ventilator 50.00 12/05/19 05:00 121 16 143/60 (87) 97 Mechanical Ventilator 50.00 I & O 12/06/19 07:00 Intake Total 1545 ml Output Total 1850 ml Balance -305 ml Height & Weight Height: '" Weight: lbs. oz. kg; 29.38 BMI Method: General Appearance: Chronically ill HEENT: PERRL/EOMI, TMs Normal, Normal ENT Inspection, Pharynx Normal, Moist Mucous Membranes Neck: Non Tender, Supple; No Thyromegaly Respiratory: Decreased Breath Sounds Cardiovascular: Irregularly Irregular, Tachycardia Capillary Refill: Less Than 3 Seconds Gastrointestinal: normal bowel sounds, non tender, soft, no pulsatile mass Extremity: Normal Capillary Refill, No Pedal Edema Neurologic/Psychiatric: Other (sedated on vent) Skin: Normal Color, Warm/Dry Lymphatic: No Adenopathy Results Lab Laboratory Tests 12/05/19 03:00 12/06/19 02:30 Assessment/Plan Assessment/Plan Acute respiratory failure -Continue vent -Rocephin and Vanco -Change rocephin to zosyn -Arriaga cultures pendng -MRSA pending pulmonary edema probably secondary to diastolic dysfunction -Give 40mg of Lasix BID -pending influenza and RVP Sinus tach -Restart home Lopressor Afib new onset -Cardiology following CAD with hx of CABG -Cardiology following ABBIE GUIDRY DO Dec 06, 2019 04:51
[2019-12-06] MEDS ORDERED: PIPERACILLIN/TAZO 4.5 GM VIAL (ZOSYN) IV ONE (04:59)
[2019-12-06] MEDS ORDERED: NS (IVPB) 100 ML ONE (04:59)
[2019-12-06] MEDS: PIPERACILLIN/TAZOBACTAM (BULK) 4.5 GM in NS (IVPB) 100 ML IV SCH ×3 (05:10→19:57)
[2019-12-06] MEDS: FUROSEMIDE 40 MG/4 ML INJ (LASIX) IVP SCH ×2 (05:10→17:22)
[2019-12-06] MEDS: inSUlin ASPART (NovoLOG) 1 UNIT/0.01 ML (CHARGE PER UNIT) SC SCH ×4 (05:29→21:22)
[2019-12-06] MEDS: CATHETER FLUSH 10 ML SYR IV SCH ×3 (05:29→21:08)
[2019-12-06 06:24] LABS: ABG BASE EXCESS 9.3 MMOL/L (-2.5-2.5); ABG OXYGEN SATURATION 95 % (94-100); ABG PCO2 43 MMHG (35-45); ABG PO2 68 MMHG (79-93); ABG TCO2 34.4 MMOL/L (21.0-31.0); ALLENS TEST POSITIVE; INSPIRED O2 16; VENTILATOR YES
--- NOTE | 2019-12-06 06:31 | NUR ---
abg results called to dr ayoub at this time. dr ayoub gave the ok to extubated pt
--- NOTE | 2019-12-06 06:38 | NUR ---
pt extubated and restraints removed at this time. pt placed on vapotherm. vital signs stable. pt resting comfortably.
--- NOTE | 2019-12-06 07:24 | Diagnostic Imaging Report ---
Indication: Dyspnea. Comparison: 12/05/2019. Discussion: Single portable upright view of the chest was obtained. Cardiomegaly is stable. Small effusions are stable. Median sternotomy, endotracheal tube, enteric tube, and right IJ line are stable. Bibasilar infiltrate or atelectasis is stable. No pneumothorax. Impression: 1. Stable chest. Dictated by: Dictated on workstation # [id number]
[2019-12-06] MEDS: DIGOXIN 0.25 MG/ML (LANOXIN) 2 ML AMP IV SCH (08:31)
[2019-12-06] MEDS: ASPIRIN 81 MG CHEW (CHILDREN'S ASA) NG SCH (08:31)
[2019-12-06] MEDS: PANTOPRAZOLE 40 MG (PROTONIX) VIAL IV SCH (08:31)
[2019-12-06] MEDS: meTOprolol TARTRATE 25 MG (LOPRESSOR) TABLET PO SCH ×2 (08:32→19:57)
[2019-12-06] MEDS: ENOXAPARIN 80 MG/0.8 ML (LOVENOX) SYR SC SCH ×2 (08:32→19:58)
--- NOTE | 2019-12-06 09:05 | Cardiology Progress Note ---
Subjective Date Seen by Provider: Dec 06, 2019 Time Seen by Provider: 09:01 Subjective/Events-last exam Patient is laying down in bed, generalized fatigue, no chest pain, still short of breath on Vapotherm Review of Systems General: No Chills, No Night Sweats; Fatigue; No Malaise, No Appetite, No Other HEENT: No Head Aches, No Visual Changes, No Eye Pain, No Ear Pain, No Dysphasia, No Sinus Congestion, No Post Nasal Drip, No Sore Throat, No Other Pulmonary: Dyspnea; No Cough, No Pleuritic Chest Pain, No Other Cardiovascular: No: Chest Pain, Palpitations, Orthopnea, Paroxysmal Noc. Dyspnea, Edema, Lt Headedness, Other Objective-Cardiology Exam Last Set of Vital Signs Vital Signs 12/06/19 12/06/19 12/06/19 12/06/19 07:00 07:11 07:24 08:00 Temp 37.5 Pulse 108 Resp 28 B/P (MAP) 118/60 (79) Pulse Ox 98 O2 Delivery Vapotherm O2 Flow Rate 25.00 70.00 FiO2 75 Capillary Refill : Less Than 3 Seconds I&O Intake and Output 12/06/19 00:00 Intake Total 1495 ml Output Total 2125 ml Balance -630 ml Intake Oral 0 ml IV Total 1495 ml Output Urine Total 2125 ml General: Alert, Cooperative, Mild Distress HEENT: Atraumatic Neck: Supple, No JVD Lungs: Clear to Auscultation, Normal Air Movement, Other (Bilateral rhonchi) Heart: Normal S1, Normal S2, Other (Atrial fibrillation with rapid ventricular response) Abdomen: Normal Bowel Sounds, Soft Extremities: No Clubbing, No Cyanosis Skin: No Rashes Neuro: Normal Speech Psych/Mental Status: Mood NL Results Lab Laboratory Tests 12/06/19 02:30 A/P-Cardiology Admission Diagnosis Acute respiratory failure Atrial fibrillation Hypotensive shock Hematuria Assessment/Plan Status post respiratory failure, extubated, on Vapotherm, improving slowly Congestive heart failure, acute on chronic left ventricular diastolic dysfunction worsened by atrial fibrillation, echocardiogram done on December 03, [address] Ruggiero to have normal LV size and function with EF 50-55 percent, biatrial enlargement, mild to moderate mitral regurgitation, tricuspid regurgitation, PA pressure 30 mmHg Paroxysmal atrial fibrillation, had palpitation about a week prior to admission. Currently her rate is controlled. Continue to monitor Status post hypotensive shock, blood pressure is better. Continue to monitor Hematuria, started on Lovenox, monitor closely Coronary artery disease, history of CABG in 1989, total of 8 or 9 stents done in the past, has been following with a resident care provider in , stopped seeing a resident care provider for the past 5 years. Clinical Quality Measures DVT/VTE Risk/Contraindication: Risk Factor Score Per Nursin RFS Level Per Nursing on Admit: 4+=Very High YANNICK TIJERINA MD Dec 06, 2019 09:05
[2019-12-06] MEDS: VANCOMYCIN 1 GM/NS 250 ML IVPB IV SCH ×2 (10:00)
--- NOTE | 2019-12-06 10:27 | Progress Note - Hospitalist ---
Subjective HPI/CC On Admission Date Seen by Provider: Dec 06, 2019 Time Seen by Provider: 09:00 CC: SOB with palpitations HPI: This is an 89yoWF clinic pt of Dr. Carvajal who has a PMH of CAD previous bypass and stents placed who was recently placed on home O2 in July at two liters and recently increased to 3 who had gone to urgent care, found to have pneumonia and CHF in August but she was found to have AF with RVR and congestive heart failure. Dr. Ruggiero has evaluated her, ordered and echocardiogram and will closely monitor and has been managing IV diuresis. Dr. Palacios will be consulted due to O2 dependency. Subjective/Events-last exam patient was extubated and is awake and alert. She is currently on Vapotherm. She appears to be weak but stable. She remains in A. fib. Daughter is present in the room and requests that she not be reintubated and has documentation to support that. I'm uncertain if there is a no CPR order in there. Review of Systems Pulmonary: Dyspnea Neurological: Weakness Objective Exam Vital Signs Vital Signs Date Time Temp Pulse Resp B/P (MAP) Pulse Ox O2 Delivery O2 Flow Rate FiO2 12/07/19 10:36 91 Vapotherm 25.00 65 12/07/19 08:00 96 17 130/52 (78) 12/07/19 03:34 36.6 Capillary Refill : Less Than 3 Seconds General Appearance: Chronically ill HEENT: Other (oral mucosa dry with possible yeast) Neck: Limited Range of Motion Respiratory: Rales, Wheezing Cardiovascular: Systolic Murmur, Irregularly Irregular Gastrointestinal: Soft, Abnormal Bowel Sounds (decreased), Distended Extremity: Pedal Edema Neurologic/Psychiatric: Alert Results/Procedures Lab Laboratory Tests 12/07/19 02:22 Patient resulted labs reviewed. Assessment/Plan Assessment and Plan Assess & Plan/Chief Complaint Acute respiratory failure - status post extubation on Vapotherm New onset Atrial Fibrillation-on Cardizem rate controlled CAD s/p CABG in late and stent placement Elevated pro-BNP Atypical PNA - procalcitonin .03-on Levaquin and Zosyn and vancomycin Hematuria HTN NIDDM oral yeast will start nystatin Clinical Quality Measures DVT/VTE Risk/Contraindication: Risk Factor Score Per Nursin RFS Level Per Nursing on Admit: 4+=Very High ISRA MIRZA MD Dec 06, 2019 10:27
[2019-12-06] MEDS: dilTIAZem DRIP PRE-MIX 125 ML IV SCH (12:42)
[2019-12-06] MEDS: NYSTATIN ORAL SUSP 5 ML UDC PO SCH ×3 (12:43→23:27)
[2019-12-06] MEDS: NS IV 1000 ML 1,000 ML IV SCH (14:38)
[2019-12-06] MEDS: ALPRAZolam 0.5 MG (XANAX) TAB PO PRN (19:57)
[2019-12-06] MEDS: fentaNYL 1,250 MCG/NS 250 ML DRIP IV SCH ×2 (19:58)
[2019-12-07] VITALS (23 sets, daily range): BP systolic 97–142; BP diastolic 42–116
[2019-12-07] MEDS: RT-ALBUTEROL/IPRATROPIUM 3 ML (DUONEB) VIAL INH SCH ×6 (02:06→22:18)
[2019-12-07 02:31] LABS: BASOPHILS % (AUTO) 0 % (0-10); EOSINOPHILS # (AUTO) 0.1 10^3/uL (0.0-0.3); EOSINOPHILS % (AUTO) 1 % (0-10); HEMATOCRIT 35 % (35-52); HEMOGLOBIN 10.4 G/DL (11.5-16.0); LYMPHOCYTES # (AUTO) 1.1 X 10^3 (1.0-4.0); LYMPHOCYTES % (AUTO) 8 % (12-44); MEAN CORPUSCULAR HEMOGLOBIN 28 PG (25-34); MEAN CORPUSCULAR HGB CONC 30 G/DL (32-36); MEAN CORPUSCULAR VOLUME 95 FL (80-99); MEAN PLATELET VOLUME 11.1 FL (7.4-10.4); MONOCYTES # (AUTO) 1.3 X 10^3 (0.0-1.0); MONOCYTES % (AUTO) 9 % (0-12); NEUTROPHILS # (AUTO) 11.5 X 10^3 (1.8-7.8); NEUTROPHILS % (AUTO) 82 % (42-75); PLATELET COUNT 163 10^3/uL (130-400); RED CELL DISTRIBUTION WIDTH 14.4 % (10.0-14.5)
[2019-12-07 02:51] LABS: BUN/CREATININE RATIO 27; CALCIUM 7.8 MG/DL (8.5-10.1); CARBON DIOXIDE 32 MMOL/L (21-32); CHLORIDE 96 MMOL/L (98-107); CREATININE SERUM 0.78 MG/DL (0.60-1.30); GFR ESTIMATED > 60; GLUCOSE 94 MG/DL (70-105); PHOSPHORUS 4.6 MG/DL (2.3-4.7); POTASSIUM 3.8 MMOL/L (3.6-5.0); SODIUM 139 MMOL/L (135-145)
[2019-12-07] MEDS: KCL 20 MEQ POWDER FOR ORAL SOLUTION NG SCH (02:55)
[2019-12-07] MEDS: MAGNESIUM 1 GM/100 ML IVPB 100 ML IV SCH (02:55)
[2019-12-07] MEDS: POTASSIUM CL 10MEQ/50ML IVPB 50 ML IV SCH (02:55)
[2019-12-07] MEDS: PIPERACILLIN/TAZOBACTAM (BULK) 4.5 GM in NS (IVPB) 100 ML IV SCH ×3 (03:31→21:20)
[2019-12-07] MEDS ORDERED: PHARMACY TO DOSE IV SCH (05:30)
[2019-12-07] MEDS ORDERED: FUROSEMIDE 40 MG/4 ML INJ (LASIX) IVP ONE (05:30)
--- NOTE | 2019-12-07 05:31 | Pulmonary Progress Note ---
Subjective Time Seen by a Provider: 05:26 Subjective/Events-last exam Pt is on Vapotherm at 70% Sepsis Event Evaluation Height, Weight, BMI Height: '" Weight: lbs. oz. kg; 29.38 BMI Method: Exam Exam Vital Signs Date Time Temp Pulse Resp B/P (MAP) Pulse Ox O2 Delivery O2 Flow Rate FiO2 12/07/19 04:00 83 18 123/56 (78) 90 Vapotherm 25.00 70.00 12/07/19 03:34 36.6 12/07/19 03:23 Vapotherm 25.00 70 12/07/19 03:00 78 18 133/45 (74) 93 Vapotherm 25.00 70.00 12/07/19 02:06 93 Vapotherm 25.00 70 12/07/19 02:00 69 15 120/46 (70) 93 Vapotherm 25.00 70.00 12/07/19 01:00 66 21 124/45 (71) 94 Vapotherm 25.00 70.00 12/07/19 01:00 73 12/07/19 00:00 71 16 97/43 (61) 94 Vapotherm 25.00 70.00 12/06/19 23:34 Vapotherm 25.00 70 12/06/19 23:33 37.0 12/06/19 23:00 96 16 111/52 (71) 94 Vapotherm 25.00 70.00 12/06/19 22:07 94 Vapotherm 25.00 70 12/06/19 22:00 103 105/45 (65) 95 Vapotherm 25.00 70.00 12/06/19 21:00 101 20 105/50 (68) 96 Vapotherm 25.00 70.00 12/06/19 20:00 100 17 111/59 (76) 96 Vapotherm 25.00 70.00 12/06/19 20:00 Vapotherm 25.00 70 12/06/19 19:37 37.6 12/06/19 19:00 99 20 105/43 (63) 96 Vapotherm 25.00 70.00 12/06/19 19:00 105 12/06/19 18:30 94 Vapotherm 25.00 70 12/06/19 18:00 105 34 101/52 (68) 94 Vapotherm 25.00 70.00 12/06/19 17:00 104 36 103/40 (61) 94 Vapotherm 25.00 70.00 12/06/19 16:00 99 24 112/52 (72) 92 Vapotherm 25.00 70.00 12/06/19 16:00 Vapotherm 25.00 70 12/06/19 15:41 37.0 12/06/19 15:00 98 15 122/59 (80) 92 Vapotherm 25.00 70.00 12/06/19 14:45 93 Vapotherm 20.00 70 12/06/19 14:00 93 15 104/54 (71) 93 Vapotherm 25.00 70.00 12/06/19 13:00 102 23 110/78 (89) 93 Vapotherm 25.00 70.00 12/06/19 12:45 99 12/06/19 12:00 111 10 98/46 (63) 92 Vapotherm 25.00 70.00 12/06/19 12:00 93 Vapotherm 25.00 70 12/06/19 11:24 36.4 12/06/19 11:00 107 122/53 (76) 93 Vapotherm 25.00 70.00 12/06/19 10:00 105 31 128/60 (82) 92 Vapotherm 25.00 70.00 12/06/19 09:00 107 113/61 (78) 94 Vapotherm 25.00 70.00 12/06/19 08:00 93 Vapotherm 25.00 70 12/06/19 08:00 108 118/60 (79) 98 Vapotherm 25.00 70.00 12/06/19 07:24 37.5 12/06/19 07:11 95 Vapotherm 75 12/06/19 07:00 97 12/06/19 07:00 107 28 106/61 (76) 95 Vapotherm 25.00 70.00 12/06/19 06:00 105 20 119/57 (77) 93 Mechanical Ventilator 40.00 I & O 12/07/19 07:00 Intake Total 1935 ml Output Total 1670 ml Balance 265 ml Height & Weight Height: '" Weight: lbs. oz. kg; 29.38 BMI Method: General Appearance: Chronically ill HEENT: Other (oral mucosa dry with possible yeast) Neck: Limited Range of Motion Respiratory: Rales, Wheezing Cardiovascular: Systolic Murmur, Irregularly Irregular Capillary Refill: Less Than 3 Seconds Gastrointestinal: normal bowel sounds, non tender, soft, no pulsatile mass Extremity: Pedal Edema Neurologic/Psychiatric: Alert Skin: Normal Color, Warm/Dry Lymphatic: No Adenopathy Results Lab Laboratory Tests 12/06/19 02:30 12/07/19 02:22 Assessment/Plan Assessment/Plan Acute respiratory failure -extubated yesterday -Vanco zosyn -Continue Vanco and zosyn secondary to worsening leukocyotsis. Check procalcitonin -Give 80mg of lasix this AM with 80 of PO KCL -Arriaga cultures pendng -MRSA pending pulmonary edema probably secondary to diastolic dysfunction - 40mg of Lasix BID -pending influenza and RVP Sinus tach -Restart home Lopressor Afib new onset -Cardiology following CAD with hx of CABG -Cardiology following ABBIE GUIDRY DO Dec 07, 2019 05:31
[2019-12-07] MEDS: FUROSEMIDE 40 MG/4 ML INJ (LASIX) IVP SCH ×2 (05:59→17:33)
[2019-12-07] MEDS: CATHETER FLUSH 10 ML SYR IV SCH ×3 (05:59→21:44)
[2019-12-07] MEDS: inSUlin ASPART (NovoLOG) 1 UNIT/0.01 ML (CHARGE PER UNIT) SC SCH ×4 (05:59→21:22)
[2019-12-07] MEDS: NYSTATIN ORAL SUSP 5 ML UDC PO SCH ×3 (05:59→17:33)
--- NOTE | 2019-12-07 07:20 | Diagnostic Imaging Report ---
INDICATION: Post extubation. TIME OF EXAM: 3:20 AM CORRELATION is made with prior study one day earlier. Changes of median sternotomy and CABG are noted. ET tube and NG tube have been removed. Right IJ line remains in place. There is right-sided pleural fluid with right basilar infiltrate or atelectasis. Minimal infiltrate or atelectasis is seen in the left base. Aeration of the left base has improved. Upper lung curtis are clear. There is no pneumothorax. IMPRESSION: Bibasilar infiltrates or atelectasis, improving on the left since yesterday. Pleural fluid may be increased on the right since the prior exam. Dictated by: Dictated on workstation # [id number]
[2019-12-07] MEDS: PANTOPRAZOLE 40 MG (PROTONIX) VIAL IV SCH (07:47)
[2019-12-07] MEDS: ASPIRIN 81 MG CHEW (CHILDREN'S ASA) NG SCH (07:48)
[2019-12-07] MEDS: DIGOXIN 0.125 MG (LANOXIN) TAB PO SCH (07:48)
[2019-12-07] MEDS: ENOXAPARIN 80 MG/0.8 ML (LOVENOX) SYR SC SCH ×2 (07:48→21:20)
[2019-12-07] MEDS: meTOprolol TARTRATE 25 MG (LOPRESSOR) TABLET PO SCH ×2 (07:48→21:20)
[2019-12-07] MEDS ORDERED: KCL 20 MEQ POWDER FOR ORAL SOLUTION PO ONE (08:00)
[2019-12-07] MEDS ORDERED: TROUGH ORDER-PHARMACY XX NR (09:00)
--- NOTE | 2019-12-07 09:15 | NUR ---
Pt assisted to recliner with max x2 assist, gait belt et walker.
[2019-12-07] MEDS ORDERED: VANCOMYCIN 1 GM/NS 250 ML IVPB IV SCH ×2 (10:00)
--- NOTE | 2019-12-07 10:06 | Cardiology Progress Note ---
Subjective Date Seen by Provider: Dec 07, 2019 Time Seen by Provider: 10:03 Subjective/Events-last exam Patient was seen at bedside, she is sitting in a chair, still having shortness of breath and cough. Review of Systems General: No Chills, No Night Sweats; Fatigue; No Malaise, No Appetite, No Other HEENT: No Head Aches, No Visual Changes, No Ear Pain, No Dysphasia, No Sinus Congestion, No Post Nasal Drip, No Sore Throat, No Other Pulmonary: Dyspnea, Cough; No Pleuritic Chest Pain, No Other Cardiovascular: Edema; No: Chest Pain, Palpitations, Orthopnea, Paroxysmal Noc. Dyspnea, Lt Headedness, Other Objective-Cardiology Exam Last Set of Vital Signs Vital Signs 12/07/19 12/07/19 12/07/19 03:34 07:11 08:00 Temp 36.6 Pulse 96 Resp 17 B/P (MAP) 130/52 (78) Pulse Ox 92 O2 Delivery Vapotherm O2 Flow Rate 25.00 65.00 FiO2 65 Capillary Refill : Less Than 3 Seconds I&O Intake and Output 12/07/19 00:00 Intake Total 2235 ml Output Total 2150 ml Balance 85 ml Intake Oral 525 ml IV Total 1710 ml Output Urine Total 2150 ml General: Alert, Oriented X3, Cooperative, Mild Distress HEENT: Atraumatic Neck: Supple, No JVD Lungs: Clear to Auscultation, Normal Air Movement, Other (Bilateral rhonchi) Heart: Normal S1, Normal S2, Other (Atrial fibrillation with rapid ventricular response) Abdomen: Normal Bowel Sounds, Soft Extremities: No Clubbing, No Cyanosis Skin: No Rashes Neuro: Normal Speech Psych/Mental Status: Mental Status NL, Mood NL Results Lab Laboratory Tests 12/07/19 02:22 A/P-Cardiology Admission Diagnosis Acute respiratory failure Atrial fibrillation Hypotensive shock Hematuria Assessment/Plan Status post respiratory failure, currently on nasal cannula, improving slowly. Continue on current medication monitor Pneumonia, worsening chest x-ray, elevated pro-, calcitonin, receiving antibiotics and managed by primary care team. Decubitus ulcer, trying to ambulate, sitting in a chair, managed by primary care team Congestive heart failure, acute on chronic left ventricular diastolic dysfunction worsened by atrial fibrillation, echocardiogram done on December 03, [address] Ruggiero to have normal LV size and function with EF 50-55 percent, biatrial enlargement, mild to moderate mitral regurgitation, tricuspid regurgitation, PA pressure 30 mmHg Paroxysmal atrial fibrillation, had palpitation about a week prior to admission. Currently her rate is controlled. Continue to monitor Status post hypotensive shock, blood pressure is better. Continue to monitor Hematuria, tolerating Lovenox, no sign of active hematuria at this time. Continue to monitor Coronary artery disease, history of CABG in 1989, total of 8 or 9 stents done in the past, has been following with a [employer] [facility] architect in , stopped seeing a [facility] [facility] architect for the past 5 years. Clinical Quality Measures DVT/VTE Risk/Contraindication: Risk Factor Score Per Nursin RFS Level Per Nursing on Admit: 4+=Very High YANNICK TIJERINA MD Dec 07, 2019 10:06
[2019-12-07] MEDS: VANCOMYCIN 1 GM/NS 250 ML IVPB IV SCH ×4 (10:36→21:44)
--- NOTE | 2019-12-07 10:46 | Progress Note - Hospitalist ---
Subjective HPI/CC On Admission Date Seen by Provider: Dec 07, 2019 Time Seen by Provider: 10:10 CC: SOB with palpitations HPI: This is an 89yoWF clinic pt of Dr. Carvajal who has a PMH of CAD previous bypass and stents placed who was recently placed on home O2 in July at two liters and recently increased to 3 who had gone to urgent care, found to have pneumonia and CHF in August but she was found to have AF with RVR and congestive heart failure. Dr. Ruggiero has evaluated her, ordered and echocardiogram and will closely monitor and has been managing IV diuresis. Dr. Palacios will be consulted due to O2 dependency. Subjective/Events-last exam Patient is sitting up in a chair and looks stronger than yesterday. Pro- calcitonin is up a little bit as is the white count. Chest x-ray shows improvement. Patient has no complaint other than when she going to get better. She is on 70 percent Vapotherm she has not had a bowel movement in an unknown number of days. Review of Systems Pulmonary: Dyspnea, Cough Gastrointestinal: Constipation Neurological: Weakness Objective Exam Vital Signs Vital Signs Date Time Temp Pulse Resp B/P (MAP) Pulse Ox O2 Delivery O2 Flow Rate FiO2 12/07/19 10:36 91 Vapotherm 25.00 65 12/07/19 08:00 96 17 130/52 (78) 12/07/19 03:34 36.6 Capillary Refill : Less Than 3 Seconds General Appearance: WD/WN, Chronically ill HEENT: Other (Oral mucosa much more moist) Neck: Limited Range of Motion Respiratory: No Accessory Muscle Use, No Respiratory Distress, Crackles, Decreased Breath Sounds, Rhonci (Scattered) Cardiovascular: No Gallop, Irregularly Irregular Gastrointestinal: Abnormal Bowel Sounds, Distended Rectal: Deferred Extremity: Pedal Edema Results/Procedures Lab Laboratory Tests 12/07/19 02:22 Patient resulted labs reviewed. Assessment/Plan Assessment and Plan Assess & Plan/Chief Complaint Acute respiratory failure - status post extubation on Vapotherm-increased pro- calcitonin and white count-chest x-ray improving we'll continue vancomycin and Zosyn-respiratory panel-negative New onset Atrial Fibrillation-on Cardizem rate controlled- CAD s/p CABG in late and stent placement Elevated pro-BNP Atypical PNA - procalcitonin .03-on Levaquin and Zosyn and vancomycin Hematuria HTN NIDDM oral yeast will start nystatin Abdominal exam findings will give a Dulcolax suppository and watch for an ileus Clinical Quality Measures DVT/VTE Risk/Contraindication: Risk Factor Score Per Nursin RFS Level Per Nursing on Admit: 4+=Very High ISRA MIRZA MD Dec 07, 2019 10:46
--- NOTE | 2019-12-07 10:50 | NUR ---
Pt ready to go back to bed. Pt assisted back to bed with x2 max assist, gait belt, et walker
[2019-12-07] MEDS ORDERED: BISACODYL 10 MG SUPP (DULCOLAX) PR NR (12:00)
[2019-12-07] MEDS: ALPRAZolam 0.5 MG (XANAX) TAB PO PRN (20:03)
[2019-12-08] VITALS (25 sets, daily range): BP systolic 93–156; BP diastolic 46–88
[2019-12-08] MEDS: NYSTATIN ORAL SUSP 5 ML UDC PO SCH ×5 (01:13→23:18)
[2019-12-08] MEDS: MAGNESIUM 1 GM/100 ML IVPB 100 ML IV SCH (02:14)
[2019-12-08] MEDS: POTASSIUM CL 10MEQ/50ML IVPB 50 ML IV SCH (02:14)
[2019-12-08] MEDS: KCL 20 MEQ POWDER FOR ORAL SOLUTION NG SCH (02:14)
[2019-12-08] MEDS: ACETAMINOPHEN 325 MG TABLET PO PRN ×2 (02:59→15:29)
[2019-12-08 03:00] LABS: BASOPHILS % (AUTO) 0 % (0-10); EOSINOPHILS # (AUTO) 0.1 10^3/uL (0.0-0.3); EOSINOPHILS % (AUTO) 1 % (0-10); HEMATOCRIT 35 % (35-52); HEMOGLOBIN 10.1 G/DL (11.5-16.0); LYMPHOCYTES % (AUTO) 10 % (12-44); MEAN CORPUSCULAR HEMOGLOBIN 28 PG (25-34); MEAN CORPUSCULAR HGB CONC 29 G/DL (32-36); MEAN CORPUSCULAR VOLUME 96 FL (80-99); MEAN PLATELET VOLUME 10.9 FL (7.4-10.4); MONOCYTES # (AUTO) 0.8 X 10^3 (0.0-1.0); MONOCYTES % (AUTO) 8 % (0-12); NEUTROPHILS # (AUTO) 8.3 X 10^3 (1.8-7.8); NEUTROPHILS % (AUTO) 81 % (42-75); PLATELET COUNT 168 10^3/uL (130-400); RED CELL DISTRIBUTION WIDTH 14.2 % (10.0-14.5); WHITE BLOOD COUNT 10.2 10^3/uL (4.3-11.0)
[2019-12-08 03:19] LABS: BUN/CREATININE RATIO 24; CALCIUM 8.3 MG/DL (8.5-10.1); CARBON DIOXIDE 31 MMOL/L (21-32); CHLORIDE 97 MMOL/L (98-107); CREATININE SERUM 0.71 MG/DL (0.60-1.30); GFR ESTIMATED > 60; GLUCOSE 111 MG/DL (70-105); MAGNESIUM 1.8 MG/DL (1.6-2.4); PHOSPHORUS 2.8 MG/DL (2.3-4.7); POTASSIUM 4.1 MMOL/L (3.6-5.0); SODIUM 138 MMOL/L (135-145)
--- NOTE | 2019-12-08 04:03 | Pulmonary Progress Note ---
Subjective Time Seen by a Provider: 04:01 Subjective/Events-last exam Pt is still requiring a lot of oxygen 70 via Vapotherm Sepsis Event Evaluation Height, Weight, BMI Height: '" Weight: lbs. oz. kg; 29.38 BMI Method: Exam Exam Vital Signs Date Time Temp Pulse Resp B/P (MAP) Pulse Ox O2 Delivery O2 Flow Rate FiO2 12/08/19 03:00 110 34 123/61 (81) 91 Vapotherm 30.00 75.00 12/08/19 02:00 110 26 126/62 (83) 93 Vapotherm 30.00 75.00 12/08/19 01:00 113 126/62 (83) 94 Vapotherm 30.00 75.00 12/08/19 01:00 113 12/08/19 00:00 95 122/52 (75) 94 Vapotherm 30.00 75.00 12/08/19 00:00 Vapotherm 30.00 75 12/08/19 00:00 Vapotherm 30.00 75 12/07/19 23:00 62 123/61 (81) 94 Vapotherm 30.00 75.00 12/07/19 22:19 95 Vapotherm 30.00 75 12/07/19 22:00 105 111/60 (77) 95 Vapotherm 30.00 75.00 12/07/19 21:00 113 128/66 (86) 95 Vapotherm 30.00 75.00 12/07/19 20:00 Vapotherm 30.00 75 12/07/19 20:00 121 128/55 (79) 93 Vapotherm 30.00 75.00 12/07/19 19:25 36.6 12/07/19 19:00 114 12/07/19 19:00 114 136/68 (90) 93 Vapotherm 30.00 75.00 12/07/19 18:46 Vapotherm 30.00 75.00 12/07/19 18:28 97 Vapotherm 30.00 80 12/07/19 17:00 98 124/57 (79) 96 Vapotherm 30.00 80.00 12/07/19 16:20 86 30.00 80 12/07/19 16:20 Vapotherm 30.00 80.00 12/07/19 16:00 142/54 (83) Vapotherm 25.00 65.00 12/07/19 16:00 37.4 12/07/19 16:00 Vapotherm 30.00 80 12/07/19 15:00 131/49 (76) Vapotherm 25.00 65.00 12/07/19 14:00 123/52 (75) 93 Vapotherm 25.00 65.00 12/07/19 13:47 91 Vapotherm 25.00 65 12/07/19 13:00 107/46 (66) 93 Vapotherm 25.00 65.00 12/07/19 12:39 99 12/07/19 12:10 37.6 12/07/19 12:00 124/62 (82) 93 Vapotherm 25.00 65.00 12/07/19 11:25 Vapotherm 25.00 60 12/07/19 11:00 102/62 (75) Vapotherm 25.00 65.00 12/07/19 10:36 91 Vapotherm 25.00 65 12/07/19 10:00 117/57 (77) 90 Vapotherm 25.00 65.00 12/07/19 09:00 104 2 136/116 (123) 93 Vapotherm 25.00 65.00 12/07/19 08:00 Vapotherm 25.00 60 12/07/19 08:00 96 17 130/52 (78) 92 Vapotherm 25.00 65.00 12/07/19 07:11 91 Vapotherm 25.00 65 12/07/19 07:00 99 38 114/56 (75) 90 Vapotherm 25.00 65.00 12/07/19 06:45 99 12/07/19 06:04 Vapotherm 25.00 60.00 12/07/19 06:00 103 15 121/56 (77) 93 Vapotherm 25.00 70.00 12/07/19 05:00 90 20 122/57 (78) 93 Vapotherm 25.00 70.00 I & O 12/08/19 07:00 Intake Total 1555 ml Output Total 1400 ml Balance 155 ml Height & Weight Height: '" Weight: lbs. oz. kg; 29.38 BMI Method: General Appearance: Chronically ill HEENT: Other (oral mucosa dry with possible yeast) Neck: Limited Range of Motion Respiratory: Rales, Wheezing Cardiovascular: Systolic Murmur, Irregularly Irregular Capillary Refill: Less Than 3 Seconds Gastrointestinal: normal bowel sounds, non tender, soft, no pulsatile mass Extremity: Pedal Edema Neurologic/Psychiatric: Alert Skin: Normal Color, Warm/Dry Lymphatic: No Adenopathy Results Lab Laboratory Tests 12/07/19 02:22 12/08/19 02:50 Assessment/Plan Assessment/Plan Acute respiratory failure -extubated yesterday -Vanco zosyn -Continue Vanco and zosyn secondary to worsening leukocyotsis. -Change Lasix to 80mg BID IV -Give 40meq of KCL BID with Lasix -Start BiPAP PRN and HS -Arriaga cultures pendng -MRSA pending pulmonary edema probably secondary to diastolic dysfunction - 80mg of Lasix BID -pending influenza and RVP Afib new onset -Cardiology following CAD with hx of CABG -Cardiology following ABBIE GUIDRY DO Dec 08, 2019 04:03
[2019-12-08] MEDS: PIPERACILLIN/TAZOBACTAM (BULK) 4.5 GM in NS (IVPB) 100 ML IV SCH ×3 (04:32→20:18)
[2019-12-08] MEDS: inSUlin ASPART (NovoLOG) 1 UNIT/0.01 ML (CHARGE PER UNIT) SC SCH ×4 (04:32→20:18)
[2019-12-08] MEDS: CATHETER FLUSH 10 ML SYR IV SCH ×3 (04:32→22:26)
[2019-12-08] MEDS ORDERED: FUROSEMIDE 40 MG/4 ML INJ (LASIX) ONE (06:08)
[2019-12-08] MEDS: RT-ALBUTEROL/IPRATROPIUM 3 ML (DUONEB) VIAL INH SCH ×6 (06:46→22:22)
[2019-12-08] MEDS ORDERED: FUROSEMIDE 40 MG/4 ML INJ (LASIX) IVP SCH (07:00)
--- NOTE | 2019-12-08 07:32 | Diagnostic Imaging Report ---
EXAM: CHEST 1 VIEW, AP/PA ONLY INDICATION: Hypoxia. Atypical pneumonia. COMPARISON: 12/07/2019. FINDINGS: Persistent airspace consolidation in the right lung base. Tiny left and moderate right pleural effusions. Heart size and central pulmonary vascularity are obscured. Sternotomy. Right IJ CVC tip lower SVC. IMPRESSION: Overall stable exam including consolidation in the right lung base and bilateral pleural effusions, greater on the right. Dictated by: Dictated on workstation # [id number]
[2019-12-08] MEDS: PANTOPRAZOLE 40 MG (PROTONIX) VIAL IV SCH (08:07)
[2019-12-08] MEDS: ENOXAPARIN 80 MG/0.8 ML (LOVENOX) SYR SC SCH ×2 (08:07→20:18)
[2019-12-08] MEDS: ASPIRIN 81 MG CHEW (CHILDREN'S ASA) NG SCH (08:07)
[2019-12-08] MEDS: DIGOXIN 0.125 MG (LANOXIN) TAB PO SCH (08:07)
[2019-12-08] MEDS: meTOprolol TARTRATE 25 MG (LOPRESSOR) TABLET PO SCH ×2 (08:07→20:18)
[2019-12-08] MEDS: KCL 20 MEQ POWDER FOR ORAL SOLUTION PO SCH ×2 (08:08→17:09)
--- NOTE | 2019-12-08 08:19 | Physical Therapy Progress Note ---
Therapy Progress Note PT continues to require new orders to initiate treatment secondary to transfer to ICU. NBA ELIZONDO PT Dec 08, 2019 08:19
--- NOTE | 2019-12-08 08:22 | Cardiology Progress Note ---
Subjective Date Seen by Provider: Dec 08, 2019 Time Seen by Provider: 08:20 Subjective/Events-last exam Patient is laying down in bed, on BiPAP, have worsening shortness of breath, confused today. Review of Systems General: No Chills, No Night Sweats; Fatigue, Malaise; No Appetite, No Other HEENT: No Head Aches, No Visual Changes, No Eye Pain, No Ear Pain, No Dyspha jamil, No Sinus Congestion, No Post Nasal Drip, No Sore Throat, No Other Pulmonary: Dyspnea, Cough; No Pleuritic Chest Pain, No Other Cardiovascular: No: Chest Pain, Palpitations, Orthopnea, Paroxysmal Noc. Dyspnea, Edema, Lt Headedness, Other Objective-Cardiology Exam Last Set of Vital Signs Vital Signs 12/08/19 12/08/19 12/08/19 12/08/19 04:00 07:00 07:01 08:00 Temp 36.6 Pulse 114 Resp 23 B/P (MAP) 121/55 (77) Pulse Ox 94 O2 Delivery NIV Bilevel O2 Flow Rate 45.00 FiO2 75 Capillary Refill : Less Than 3 Seconds I&O Intake and Output 12/08/19 00:00 Intake Total 1805 ml Output Total 1670 ml Balance 135 ml Intake Oral 1305 ml IV Total 500 ml Output Urine Total 1670 ml # Bowel Movements 1 General: Alert, Cooperative, Mild Distress, Other (Confused) HEENT: Atraumatic Neck: Supple, No JVD Lungs: Normal Air Movement, Other (Bilateral rhonchi) Heart: Normal S1, Normal S2, Other (Atrial fibrillation with rapid ventricular response) Abdomen: Normal Bowel Sounds, Soft Extremities: No Clubbing, No Cyanosis Skin: No Rashes Neuro: Normal Speech Psych/Mental Status: Mental Status NL, Mood NL Results Lab Laboratory Tests 12/08/19 02:50 A/P-Cardiology Admission Diagnosis Acute respiratory failure Atrial fibrillation Hypotensive shock Hematuria Assessment/Plan Status post respiratory failure, worsening again today after transient improvement yesterday. Currently on BiPAP, received large doses of Lasix. I will hold Lasix for now. Discussed with Dr. Palacios and planning for CT of the chest. Pneumonia, worsening chest x-ray, elevated pro-calcitonin, receiving antibiotics and managed by primary care team. Decubitus ulcer, trying to ambulate, sitting in a chair, managed by primary care team Congestive heart failure, acute on chronic left ventricular diastolic dysfunction worsened by atrial fibrillation, echocardiogram done on December [address] Ruggiero to have normal LV size and function with EF 50-55 percent, biatrial enlargement, mild to moderate mitral regurgitation, tricuspid regurgitation, PA pressure 30 mmHg Paroxysmal atrial fibrillation, tachycardic, frequent PVCs. I will give additional dose of IV Lopressor today, monitor tolerance and response. Status post hypotensive shock, blood pressure is better. Continue to monitor Hematuria, tolerating Lovenox, no sign of active hematuria at this time. Continue to monitor Coronary artery disease, history of CABG in 1989, total of 8 or 9 stents done in the past, has been following with a head housekeeper in , stopped seeing a head housekeeper for the past 5 years. Clinical Quality Measures DVT/VTE Risk/Contraindication: Risk Factor Score Per Nursin RFS Level Per Nursing on Admit: 4+=Very High YANNICK TIJERINA MD Dec 08, 2019 08:22
[2019-12-08] MEDS ORDERED: meTOprolol 5 MG/5 ML (LOPRESSOR) VIAL IV NR (08:23)
--- NOTE | 2019-12-08 08:26 | Occ Therapy Progress Note ---
Therapy Progress Note Pt. will require new OT orders for skilled therapy to resume. Will continue to monitor this pt. [id number] TRACI JORGE OT Dec 08, 2019 08:26
--- NOTE | 2019-12-08 08:30 | NUR ---
DR TIJERINA AT BEDSIDE. THIS NURSE NOTIFIED DR TIJERINA PT HEART RATE HAS BEEN 120-130 AFIB OVERNIGHT. SEE ORDER HX.
[2019-12-08 09:15] LABS: ABG BASE EXCESS 9.5 MMOL/L (-2.5-2.5); ABG OXYGEN SATURATION 95 % (94-100); ABG PCO2 62 MMHG (35-45); ABG PH 7.37 (7.37-7.43); ABG PO2 76 MMHG (79-93); ABG TCO2 36.9 MMOL/L (21.0-31.0)
[2019-12-08 09:16] LABS: ALLENS TEST YES-POS; INSPIRED O2 45%; PATIENT TEMP 36.6; VENTILATOR NO
--- NOTE | 2019-12-08 10:20 | NUR ---
CM/SS: Visited with pt and family as to pt's change in status. Plan: Undetermined at this time, possible comfort care. Summary: Pt reports to this worker that she is ready to go and that she does not want to go to a fdc or depending on others for care. Daughter (Shirley) and son (Louie) are at the bedside and report that pt shared with them that she is tired and does not want all of this stuff hooked up to her and just wants to go. Daughter is crying and can hardly talk. Son is also emotional as well. Met with daughter and son in waiting room, options for care are discussed, comfort care and hospice discussed. Family will be at the bedside today. This worker will follow up.
--- NOTE | 2019-12-08 11:30 | NUR ---
THIS NURSE NOTIFIED DR RIGGS THAT PT WOULD LIKE TO CONTINUE WITH PLAN OF CARE AT THIS TIME. PT STATED "I WANT TO TAKE IT DAY BY DAY." NO NEW ORDERS AT THIS TIME. WILL CONTINUE TO MONITOR.
[2019-12-08] MEDS ORDERED: HOLD METFORMIN - RECEIVED CONTRAST 20 ML VIAL IV SCH (11:45)
[2019-12-08] MEDS ORDERED: NS 100 ML (IVPB) BAG IV ONE (11:45)
[2019-12-08] MEDS ORDERED: IOHEXOL 350 MG/ML 100 ML (OMNIPAQUE 350) VIAL IV ONE (11:45)
[2019-12-08] MEDS: VANCOMYCIN 1 GM/NS 250 ML IVPB IV SCH ×4 (11:49→22:27)
--- NOTE | 2019-12-08 13:56 | NUR ---
CM/SS: Follow up with pt and family as to pt status Plan: Undetermined at this time - possible comfort care. Summary: Family are better and so is pt. She is awaiting a chest x-ray. Pt reports she still is not sure about doing everything, but will see what tomorrow holds. Family are at the bedside and coping better at this time. This worker will follow up.
--- NOTE | 2019-12-08 14:47 | Progress Note - Hospitalist ---
Subjective HPI/CC On Admission Date Seen by Provider: Dec 08, 2019 Time Seen by Provider: 08:55 CC: SOB with palpitations HPI: This is an 89yoWF clinic pt of Dr. Carvajal who has a PMH of CAD previous bypass and stents placed who was recently placed on home O2 in July at two liters and recently increased to 3 who had gone to urgent care, found to have pneumonia and CHF in August but she was found to have AF with RVR and congestive heart failure. Dr. Ruggiero has evaluated her, ordered and echocardiogram and will closely monitor and has been managing IV diuresis. Dr. Palacios will be consulted due to O2 dependency. Subjective/Events-last exam she is wearing BiPAP this morning. She denies feeling short of breath. She denies any pain. She denies any fevers or chills. She feels weak. Objective Exam Vital Signs Vital Signs Date Time Temp Pulse Resp B/P (MAP) Pulse Ox O2 Delivery O2 Flow Rate FiO2 12/08/19 14:00 108 28 91 NIV Bilevel 45.00 12/08/19 13:23 36.4 60 Capillary Refill : Less Than 3 Seconds General Appearance: No Apparent Distress, Chronically ill Respiratory: Lungs Clear, Normal Breath Sounds, No Respiratory Distress, Other (wearing BiPAP) Cardiovascular: Regular Rate, Rhythm, No Edema, No Murmur Gastrointestinal: Normal Bowel Sounds, Non Tender, Soft Extremity: Normal Inspection, Non Tender, No Pedal Edema Neurologic/Psychiatric: Alert, Depressed Affect Skin: Normal Color, Warm/Dry Results/Procedures Lab Laboratory Tests 12/08/19 02:50 Patient resulted labs reviewed. Assessment/Plan Assessment and Plan Assess & Plan/Chief Complaint Acute respiratory failure pneumonia Currently on BiPAP Continue antibiotics CT chest ordered for today paroxysmal atrial fibrillation Continue digoxin and diltiazem Lovenox for stroke prophylaxis Poor prognosis DO NOT RESUSCITATE/DO NOT INTUBATE Considering comfort care/hospice CAD s/p CABG Hematuria HTN NIDDM Diagnosis/Problems Diagnosis/Problems (1) Acute respiratory failure with hypoxia Status: Acute (2) Pneumonia (3) Poor prognosis Status: Acute Clinical Quality Measures DVT/VTE Risk/Contraindication: Risk Factor Score Per Nursin RFS Level Per Nursing on Admit: 4+=Very High RAHUL RIGGS MD Dec 08, 2019 14:46
--- NOTE | 2019-12-08 14:53 | Diagnostic Imaging Report ---
PROCEDURE: CT angiography of the chest with contrast. TECHNIQUE: Multiple contiguous axial images were obtained through the chest after uneventful bolus administration of intravenous contrast. 3D reconstructed CTA MIP acquisitions were also performed. Auto Exposure Controls were utilized during the CT exam to meet ALARA standards for radiation dose reduction. DATE: December 08, 2019. COMPARISON: Chest radiograph December 08, 2019. CT chest December 04, 2019. INDICATION: 89-year-old female, hypoxia. History of atypical pneumonia. FINDINGS: There is a moderate right pleural effusion and a small left pleural effusion. There is adjacent compressive atelectasis. There is no nonenhancing airspace consolidative process to suggest pneumonia or other alveolar consolidative process. There is no identified central or segmental pulmonary embolus. There is limited evaluation for subsegmental pulmonary emboli given the timing of the contrast bolus. There are coronary artery calcifications and additional areas of atherosclerotic disease. There is no pericardial effusion. There is no identified abnormally enlarged mediastinal, hilar, or axillary lymph node which meets CT size criteria for adenopathy. The thyroid is diffusely enlarged and heterogeneous in attenuation. There are degenerative changes of the spine. There are median sternotomy wires. There is no identified acute bony abnormality. IMPRESSION: 1. Moderate right and small left pleural effusions with adjacent compressive atelectasis. 2. No additional alveolar consolidation. The previously noted areas of nonenhancing alveolar consolidation in the right upper lobe and right lower lobe on the prior CT chest December 04, 2019 have resolved. 3. No identified central or segmental pulmonary embolus. Dictated by: Dictated on workstation # [id number]
[2019-12-08] MEDS: FUROSEMIDE 40 MG/4 ML INJ (LASIX) IVP SCH (17:09)
[2019-12-08] MEDS: ALPRAZolam 0.5 MG (XANAX) TAB PO PRN (20:18)
[2019-12-08] MEDS ORDERED: TROUGH ORDER-PHARMACY XX NR (21:00)
--- NOTE | 2019-12-08 22:28 | NUR ---
VANCO 2200 DOSE HELD 12/08/19 DUE TO ELEVATED VANCO TROUGH OF 20.9. E PHARM NOTIFIED.
[2019-12-09] VITALS (23 sets, daily range): BP systolic 99–152; BP diastolic 47–85
[2019-12-09] MEDS: RT-ALBUTEROL/IPRATROPIUM 3 ML (DUONEB) VIAL INH SCH ×6 (02:05→21:20)
[2019-12-09] MEDS: PIPERACILLIN/TAZOBACTAM (BULK) 4.5 GM in NS (IVPB) 100 ML IV SCH ×3 (03:47→20:50)
[2019-12-09 04:16] LABS: BASOPHILS % (AUTO) 0 % (0-10); EOSINOPHILS # (AUTO) 0.2 10^3/uL (0.0-0.3); EOSINOPHILS % (AUTO) 4 % (0-10); HEMATOCRIT 34 % (35-52); HEMOGLOBIN 9.8 G/DL (11.5-16.0); LYMPHOCYTES # (AUTO) 0.8 X 10^3 (1.0-4.0); LYMPHOCYTES % (AUTO) 12 % (12-44); MEAN CORPUSCULAR HEMOGLOBIN 28 PG (25-34); MEAN CORPUSCULAR HGB CONC 29 G/DL (32-36); MEAN CORPUSCULAR VOLUME 96 FL (80-99); MEAN PLATELET VOLUME 10.9 FL (7.4-10.4); MONOCYTES # (AUTO) 0.7 X 10^3 (0.0-1.0); MONOCYTES % (AUTO) 11 % (0-12); NEUTROPHILS # (AUTO) 4.9 X 10^3 (1.8-7.8); NEUTROPHILS % (AUTO) 74 % (42-75); PLATELET COUNT 190 10^3/uL (130-400); WHITE BLOOD COUNT 6.6 10^3/uL (4.3-11.0)
[2019-12-09 04:20] LABS: ABG BASE EXCESS 14.7 MMOL/L (-2.5-2.5); ABG OXYGEN SATURATION 95 % (94-100); ABG PCO2 56 MMHG (35-45); ABG PH 7.46 (7.37-7.43); ABG PO2 66 MMHG (79-93); ABG TCO2 41.5 MMOL/L (21.0-31.0)
[2019-12-09 04:24] LABS: ALLENS TEST POS
[2019-12-09 04:25] LABS: INSPIRED O2 40%; PATIENT TEMP 36.1; VENTILATOR NO
[2019-12-09 04:51] LABS: BUN/CREATININE RATIO 22; CALCIUM 8.2 MG/DL (8.5-10.1); CARBON DIOXIDE 37 MMOL/L (21-32); CHLORIDE 94 MMOL/L (98-107); CREATININE SERUM 0.63 MG/DL (0.60-1.30); GFR ESTIMATED > 60; GLUCOSE 104 MG/DL (70-105); MAGNESIUM 1.8 MG/DL (1.6-2.4); PHOSPHORUS 1.7 MG/DL (2.3-4.7); POTASSIUM 4.1 MMOL/L (3.6-5.0); SODIUM 140 MMOL/L (135-145)
[2019-12-09] MEDS: ACETAMINOPHEN 325 MG TABLET PO PRN (05:05)
[2019-12-09] MEDS: POTASSIUM CL 10MEQ/50ML IVPB 50 ML IV SCH (05:18)
[2019-12-09] MEDS: KCL 20 MEQ POWDER FOR ORAL SOLUTION NG SCH (05:18)
[2019-12-09] MEDS: MAGNESIUM 1 GM/100 ML IVPB 100 ML IV SCH (05:18)
[2019-12-09] MEDS: inSUlin ASPART (NovoLOG) 1 UNIT/0.01 ML (CHARGE PER UNIT) SC SCH ×4 (05:19→20:51)
--- NOTE | 2019-12-09 05:45 | Diagnostic Imaging Report ---
Indication: Hypoxemia Portable chest 4:40 AM Right jugular central line tip projects over the SVC. There are postoperative changes from a median sternotomy. There is some bilateral medial basal infiltrate or atelectasis. There is a small right pleural effusion. IMPRESSION: Basilar infiltrates and right pleural effusion. Overall appearance is slightly improved compared to the previous day. Dictated by: Dictated on workstation # [id number]
[2019-12-09] MEDS ORDERED: FUROSEMIDE 40 MG/4 ML INJ (LASIX) IVP ONE (06:00)
--- NOTE | 2019-12-09 06:02 | Pulmonary Progress Note ---
Subjective Time Seen by a Provider: 06:01 Subjective/Events-last exam Improved oxygen requirements. Sepsis Event Evaluation Height, Weight, BMI Height: '" Weight: lbs. oz. kg; 29.38 BMI Method: Exam Exam Vital Signs Date Time Temp Pulse Resp B/P (MAP) Pulse Ox O2 Delivery O2 Flow Rate FiO2 12/09/19 05:04 93 Vapotherm 20.00 60 12/09/19 05:00 123 15 141/64 (89) NIV Bilevel 40.00 12/09/19 04:15 100 9 136/66 (89) 94 NIV Bilevel 40.00 12/09/19 04:00 NIV Bilevel 40 12/09/19 03:00 110 11 138/74 (95) 94 NIV Bilevel 40.00 12/09/19 02:06 89 22 95 40.00 12/09/19 02:00 90 13 141/59 (86) 95 NIV Bilevel 40.00 12/09/19 01:00 86 12/09/19 01:00 86 26 135/57 (83) 94 NIV Bilevel 50.00 12/09/19 00:00 87 21 131/67 (88) 94 NIV Bilevel 50.00 12/09/19 00:00 NIV Bilevel 50 12/08/19 23:00 95 21 135/53 (80) 93 NIV Bilevel 50.00 12/08/19 22:26 99 34 93 NIV Bilevel 50.00 12/08/19 22:22 108 33 95 50.00 12/08/19 22:00 118 23 140/57 (84) 91 Vapotherm 25.00 70.00 12/08/19 21:00 116 14 97/74 (82) 92 Vapotherm 25.00 70.00 12/08/19 20:00 113 147/63 (91) 93 Vapotherm 25.00 70.00 12/08/19 20:00 Vapotherm 25.00 70 12/08/19 20:00 36.9 12/08/19 19:45 117 24 137/59 (85) 91 Vapotherm 25.00 70.00 12/08/19 19:02 91 Vapotherm 20.00 60 12/08/19 19:00 124 24 132/66 (88) 92 Vapotherm 20.00 65.00 3/16/20 19:00 124 12/08/19 18:00 134 93/46 (62) 91 NIV Bilevel 20.00 65.00 12/08/19 17:00 122 38 110/88 (95) 93 NIV Bilevel 20.00 65.00 12/08/19 16:21 95 Vapotherm 20.00 60 12/08/19 16:00 109 16 155/62 (93) NIV Bilevel 20.00 65.00 12/08/19 16:00 93 Vapotherm 20.00 65 12/08/19 15:38 Vapotherm 20.00 65.00 12/08/19 15:00 109 16 126/82 (97) NIV Bilevel 45.00 12/08/19 14:00 108 28 91 NIV Bilevel 45.00 12/08/19 13:23 36.4 97 93 60 12/08/19 13:00 96 25 123/53 (76) 91 Vapotherm 20.00 60.00 12/08/19 12:05 93 12/08/19 12:00 105 13 127/54 (78) 94 Vapotherm 20.00 60.00 12/08/19 12:00 93 Vapotherm 20.00 65 12/08/19 11:37 96 Vapotherm 20.00 60 12/08/19 11:36 Vapotherm 20.00 60.00 12/08/19 11:05 36.4 12/08/19 11:00 93 24 132/63 (86) 95 NIV Bilevel 45.00 12/08/19 10:00 75 24 118/64 (82) 95 NIV Bilevel 45.00 12/08/19 09:56 87 23 95 40.00 12/08/19 09:00 87 118/61 (80) 96 NIV Bilevel 45.00 12/08/19 08:00 95 NIV Bilevel 45 12/08/19 08:00 114 121/55 (77) 94 NIV Bilevel 45.00 12/08/19 07:01 36.6 12/08/19 07:00 108 12/08/19 07:00 129 23 156/62 (93) 93 NIV Bilevel 45.00 12/08/19 06:47 123 19 93 45.00 12/08/19 06:00 130 28 132/54 (80) 93 NIV Bilevel 45.00 I & O 12/09/19 07:00 Intake Total 1500 ml Output Total 3525 ml Balance -2024 ml Height & Weight Height: '" Weight: lbs. oz. kg; 29.38 BMI Method: General Appearance: No Apparent Distress, Chronically ill HEENT: Other (oral mucosa dry with possible yeast) Neck: Limited Range of Motion Respiratory: Lungs Clear, Normal Breath Sounds, No Respiratory Distress, Other (wearing BiPAP) Cardiovascular: Regular Rate, Rhythm, No Edema, No Murmur Capillary Refill: Less Than 3 Seconds Gastrointestinal: normal bowel sounds, non tender, soft, no pulsatile mass Extremity: Normal Inspection, Non Tender, No Pedal Edema Neurologic/Psychiatric: Alert, Depressed Affect Skin: Normal Color, Warm/Dry Lymphatic: No Adenopathy Results Lab Laboratory Tests 12/08/19 02:50 12/09/19 03:44 Assessment/Plan Assessment/Plan Acute respiratory failure -extubated yesterday - zosyn - Lasix 40mg BID IV -CT shows bilateral pleural effusions R>L -Give an extra 40 for total of 80mg of Lasix this AM -CXR shows improvement today after lasix -BiPAP PRN and HS -Arriaga cultures pendng -MRSA pending pulmonary edema probably secondary to diastolic dysfunction - 40mg of Lasix BID -pending influenza and RVP Afib new onset -Cardiology following CAD with hx of CABG -Cardiology following ABBIE GUIDRY DO Dec 09, 2019 06:02
[2019-12-09] MEDS: KCL 20 MEQ POWDER FOR ORAL SOLUTION PO SCH ×2 (06:49→17:14)
[2019-12-09] MEDS: FUROSEMIDE 40 MG/4 ML INJ (LASIX) IVP SCH ×2 (06:49→17:14)
[2019-12-09] MEDS: CATHETER FLUSH 10 ML SYR IV SCH ×3 (06:49→21:36)
[2019-12-09] MEDS: NYSTATIN ORAL SUSP 5 ML UDC PO SCH ×4 (06:49→23:37)
--- NOTE | 2019-12-09 08:51 | Cardiology Progress Note ---
Subjective Date Seen by Provider: Dec 09, 2019 Time Seen by Provider: 08:50 Subjective/Events-last exam Patient is sitting in a chair, still having some shortness of breath but overall improving slowly. No chest pain Review of Systems General: No Chills, No Night Sweats; Fatigue, Malaise; No Appetite, No Other HEENT: No Head Aches, No Visual Changes, No Eye Pain, No Ear Pain, No Dysphasia, No Sinus Congestion, No Post Nasal Drip, No Sore Throat, No Other Pulmonary: Dyspnea; No Cough, No Pleuritic Chest Pain, No Other Cardiovascular: No: Chest Pain, Palpitations, Orthopnea, Paroxysmal Noc. Dyspnea, Edema, Lt Headedness, Other Objective-Cardiology Exam Last Set of Vital Signs Vital Signs 12/08/19 12/09/19 12/09/19 12/09/19 20:00 07:49 08:00 08:20 Temp 36.9 Pulse 126 B/P (MAP) 145/74 (97) Pulse Ox 93 O2 Delivery Vapotherm O2 Flow Rate 20.00 60.00 FiO2 65 Capillary Refill : Less Than 3 Seconds I&O Intake and Output 12/09/19 00:00 Intake Total 1475 ml Output Total 3425 ml Balance -1950 ml Intake Oral 1475 ml Output Urine Total 3425 ml # Bowel Movements 1 General: Alert, Cooperative, Mild Distress HEENT: Atraumatic Neck: Supple, No JVD Lungs: Normal Air Movement, Other (Bilateral rhonchi) Heart: Normal S1, Normal S2, Other (Atrial fibrillation with rapid ventricular response) Abdomen: Normal Bowel Sounds, Soft Extremities: No Clubbing, No Cyanosis Skin: No Rashes Neuro: Normal Speech Psych/Mental Status: Mental Status NL, Mood NL Results Lab Laboratory Tests 12/09/19 03:44 A/P-Cardiology Admission Diagnosis Acute respiratory failure Atrial fibrillation Hypotensive shock Hematuria Assessment/Plan Status post respiratory failure, worsening again today after transient improvement yesterday. Currently on BiPAP, received large doses of Lasix. I will hold Lasix for now. Discussed with Dr. Palacios and planning for CT of the chest. 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 Ruggiero to have normal LV size and function with EF 50-55 pe rcent, biatrial enlargement, mild to moderate mitral regurgitation, tricuspid regurgitation, PA pressure 30 mmHg Paroxysmal atrial fibrillation, tachycardic, I will increase Cardizem and monitor tolerance and response Status post hypotensive shock, blood pressure is better. Continue to monitor Hematuria, tolerating Lovenox, no sign of active hematuria at this time. Continue to monitor Coronary artery disease, history of CABG in 1989, total of 8 or 9 stents done in the past, has been following with a surgery aide in , stopped seeing a surgery aide for the past 5 years. Clinical Quality Measures DVT/VTE Risk/Contraindication: Risk Factor Score Per Nursin RFS Level Per Nursing on Admit: 4+=Very High YANNICK TIJERINA MD Dec 09, 2019 08:51
[2019-12-09] MEDS: meTOprolol TARTRATE 25 MG (LOPRESSOR) TABLET PO SCH ×2 (08:54→20:50)
[2019-12-09] MEDS: ENOXAPARIN 80 MG/0.8 ML (LOVENOX) SYR SC SCH ×2 (08:54→20:50)
[2019-12-09] MEDS: ASPIRIN 81 MG CHEW (CHILDREN'S ASA) NG SCH (08:54)
[2019-12-09] MEDS: PANTOPRAZOLE 40 MG (PROTONIX) VIAL IV SCH (08:54)
[2019-12-09] MEDS: DIGOXIN 0.125 MG (LANOXIN) TAB PO SCH (08:54)
--- NOTE | 2019-12-09 09:28 | Progress Note - Hospitalist ---
Subjective HPI/CC On Admission Date Seen by Provider: Dec 09, 2019 Time Seen by Provider: 08:15 CC: SOB with palpitations HPI: This is an 89yoWF clinic pt of Dr. Carvajal who has a PMH of CAD previous bypass and stents placed who was recently placed on home O2 in July at two liters and recently increased to 3 who had gone to urgent care, found to have pneumonia and CHF in August but she was found to have AF with RVR and congestive heart failure. Dr. Ruggiero has evaluated her, ordered and echocardiogram and will closely monitor and has been managing IV diuresis. Dr. Palacios will be consulted due to O2 dependency. Subjective/Events-last exam She is feeling better today. She is not wearing her BiPAP. She is wearing Vapotherm. She denies any shortness of breath. She denies any pain. She denies any nausea or vomiting. Objective Exam Vital Signs Vital Signs Date Time Temp Pulse Resp B/P (MAP) Pulse Ox O2 Delivery O2 Flow Rate FiO2 12/09/19 09:00 129 36 129/74 (92) 94 Vapotherm 20.00 60.00 12/09/19 07:49 65 12/08/19 20:00 36.9 Capillary Refill : Less Than 3 Seconds General Appearance: No Apparent Distress, Chronically ill Respiratory: No Accessory Muscle Use, No Respiratory Distress, Crackles, Other (Wearing Vapotherm) Cardiovascular: Irregularly Irregular, Tachycardia Gastrointestinal: Normal Bowel Sounds, Non Tender, Soft Extremity: Normal Inspection, Non Tender, No Pedal Edema Neurologic/Psychiatric: Alert, Normal Mood/Affect Skin: Warm/Dry, Pallor Results/Procedures Lab Laboratory Tests 12/09/19 03:44 Patient resulted labs reviewed. Assessment/Plan Assessment and Plan Assess & Plan/Chief Complaint Acute respiratory failure Pneumonia Pulmonary edema Continue Vapotherm Continue antibiotics Chest x-ray with pleural effusions, mildly improved Continue Lasix paroxysmal atrial fibrillation Continue digoxin and diltiazem Lovenox for stroke prophylaxis Poor prognosis DO NOT RESUSCITATE/DO NOT INTUBATE CAD s/p CABG Hematuria HTN NIDDM Diagnosis/Problems Diagnosis/Problems (1) Acute respiratory failure with hypoxia Status: Acute (2) Pneumonia Status: Acute (3) Poor prognosis Status: Acute Clinical Quality Measures DVT/VTE Risk/Contraindication: Risk Factor Score Per Nursin RFS Level Per Nursing on Admit: 4+=Very High RAHUL RIGGS MD Dec 09, 2019 09:27
--- NOTE | 2019-12-09 10:03 | Physical Therapy Evaluation ---
PT Evaluation-General Medical Diagnosis Admission Date Dec 02, 2019 at 15:11 Medical Diagnosis: SOB, A fib Onset Date: Dec 02, 2019 Therapy Diagnosis Therapy Diagnosis: Impaired mobility Precautions Precautions/Isolations: Fall Prevention, Standard Precautions Weight Bear Status Right Lower Extremity: Right Weight Bearing/Tolerated Left Lower Extremity: Left Weight Bearing/Tolerated Referral Physician: Melchor Reason for Referral: Evaluation/Treatment Medical History Pertinent Medical History: Arthritis, CABG, CAD, COPD, HTN, [place] Additional Medical History hypoxia, CHF, SOB, CABG, heart attack, HPT Current History 2nd to Dx nausia, vomiting, dizziness, syncope, abdominal pain/LBP. Arrived at hospital post doctors office visit. Reviewed History: Yes Social History Home: Single Level Current Living Status: Alone (PRN help from family for shopping.) Entry Into Home: Ramp (covering 2 stairs) PT Steps Into Home: 0 PT Steps Inside Home: 0 (Ramp) Prior Prior Level of Function SCALE: Activities may be completed with or without assistive devices. 2-Eototenird-rqqikmz completes the activity by him/herself with no assistance fr om a helper. 5-Set-up or Clean-up Assistance-helper sets up or cleans up; patient completes activity. [place] assists only prior to or following the activity. 4-Supervision or Touching Assistance-helper provides verbal cues and/or touching/steadying and/or contact guard assistance as patient completes activity. Assistance may be provided throughout the activity or intermittently. 3-Partial/Moderate Assistance-helper does LESS THAN HALF the effort. [place] lifts, holds or supports trunk or limbs, but provides less than half the effort. 2-Substantial/Maximal Assistance-helper does MORE THAN HALF the effort. [place] lifts or holds trunk or limbs and provides more than half the effort. 3-Qjfskdpge-edhgwq does ALL the effort. Patient does none of the effort to complete the activity. Or, the assistance of 2 or more helpers is required for the patient to complete the activity. If activity was not attempted, code reason: 7-Patient Refused. 9-Not Applicable-not attempted and the patient did not perform the activity before the current illness, exacerbation or injury. 10-Not Attempted due to Environmental Limitations-(lack of equipment, weather restraints, etc.). 88-Not Attempted due to Medical Conditions or Safety Concerns. Bed Mobility: 5 Transfers (B,C,W/C): 5 Gait: 5 Indoor Mobility (Ambulation): Needed Some Help Stairs: Not Applicalbe Prior Devices Use: Walker Prior Device Use: FWW PT Evaluation-Current Subjective [place] with movement of knees B 01/31 Objective Patient Orientation: Person, Place, Eyes Open Attachments: Central Line, Chest Tube, Oxygen (20 L, 60% o2), Mendez Catheter, IV ROM/Strength ROM Upper Extremities WNL ROM Lower Extremities Lack of ROM in B knees Strength Lower Extremities Gross weakness could not transfer without 2x PT mod A Integumentary/Posture Integumentary Visually intact Bowel Incontinence: No Bladder Incontinence: No Neuromuscular (Tone, Coordination, Reflexes) WNL Sensory Vision: Functional Hearing: Functional Hand Dominance: Right Sensation Right Lower Extremit: Intact Sensation Left Lower Extremity: Intact Transfers Sit to Lying (QC): 2 (2x PT assistance with Mod A each. 1 for trunk and other PT for LE.) Sit to Stand (QC): 2 (2x PT mod A each blocking B knees) Chair/Ohh-es-Ssqbe Xfer(QC): 2 (2x PT mod A each blocking B knees) Gait Does the Patient Walk?: No and Walking Goal IS indicated Comments/Gait Description Patient to weak to ambulate but was using a RW prior to this date. Wheelchair Training unable to test due to lack of tolerance Balance Sitting Static: Fair Sitting Dynamic: Fair Standing Static: Poor Standing Dynamic: Poor Assessment/Needs Patient is self limiting and has to be motivated to complete therapy. Patient was set up in chair with family in room and call light/tray in reach. When transferring B knees must be blocked and she has low tolerance due to knee pain and deconditioning. During session o2 sat fell to 80% during transfer, patient on vapotherm 20L 60% o2 Rehab Potential: Guarded PT Short Term Goals Short Term Goals Sit to lyin Lying to sitting on side of be: 3 Sit to stand: 3 Chair/bbz-eg-spvzk transfer: 3 PT Binder Coverstitch Goals Intermediate Goals PT Intermediate Goals Time Frame: Dec 27, 2019 Roll Left & Right (QC): 5 Sit to Lying (QC): 4 Lying-Sitting on Side/Bed(QC): 4 Sit to Stand (QC): 4 Walk 10 feet (QC): 4 (RW) PT Plan Problem List Problem List: Activity Tolerance, Functional Strength, Safety, Balance, Gait, Transfer, Bed Mobility Treatment/Plan Treatment Plan: Continue Plan of Care Treatment Plan: Bed Mobility, Education, Functional Activity Paramjit, Functional Strength, Gait, Safety, Therapeutic Exercise, Transfers Treatment Duration: Dec 27, 2019 Frequency: 6 times per week Estimated Hrs Per Day: .25 hour per day Patient and/or Family Agrees t: Yes Safety Risks/Education Patient Education: Correct Positioning, Instructions to Caregiver, Disease Process, Safety Issues Teaching Recipient: Patient, Family Teaching Methods: Demonstration, Discussion, Audiovisual Response to Teaching: Verbalize Understanding, Return Demonstration, Reinforcement Needed Time/GCodes Time In: 0816 Time Out: 0835 Total Billed Treatment Time: 19 Total Billed Treatment 1 visit [facility] 19' NBA ELIZONDO PT Dec 09, 2019 10:03
--- NOTE | 2019-12-09 12:00 | Occupational Therapy Eval ---
OT Evaluation-General/PLF Medical Diagnosis Admission Date Dec 02, 2019 at 15:11 Medical Diagnosis: SOB, A fib Onset Date: Dec 02, 2019 Therapy Diagnosis Therapy Diagnosis: impaired self care skills Precautions Precautions/Isolations: Fall Prevention, Standard Precautions, Pressure Ulcer Safety Interventions: None Referral Physician: Melchor Medical History Pertinent Medical History: Arthritis, CABG, CAD, COPD, HTN, [place] Current History Pt extubated on 12/05 and new therapy order received. Social History Home: Single Level Current Living Status: Alone (PRN help from family for shopping.) Entry Into Home: Ramp (covering 2 stairs) Steps Into Home: 0 Steps Inside Home: 0 (Ramp) ADL-Prior Level of Function SCALE: Activities may be completed with or without assistive devices. 7-Heokclhomt-rlccpft completes the activity by him/herself with no assistance f rom a helper. 5-Set-up or Clean-up Assistance-helper sets up or cleans up; patient completes activity. [place] assists only prior to or following the activity. 4-Supervision or Touching Assistance-helper provides verbal cues and/or touching/steadying and/or contact guard assistance as patient completes activity. Assistance may be provided throughout the activity or intermittently. 3-Partial/Moderate Assistance-helper does LESS THAN HALF the effort. [place] lifts, holds or supports trunk or limbs, but provides less than half the effort. 2-Substantial/Maximal Assistance-helper does MORE THAN HALF the effort. [place] lifts or holds trunk or limbs and provides more than half the effort. 2-Rdojwuaie-xqjbcz does ALL the effort. Patient does none of the effort to complete the activity. Or, the assistance of 2 or more helpers is required for the patient to complete the activity. If activity was not attempted, code reason: 7-Patient Refused. 9-Not Applicable-not attempted and the patient did not perform the activity before the current illness, exacerbation or injury. 10-Not Attempted due to Environmental Limitations-(lack of equipment, weather restraints, etc.). 88-Not Attempted due to Medical Conditions or Safety Concerns. ADL PLOF Comments Pt reports being independent prior to admission. Uses walker for mobility Self Care: Independent Drive Self: No OT Current Status Subjective Pt resting in bed, agrees to therapy. Pt has no c/o pain, but states she is fatigued from sitting up in the chair this morning. Mental Status/Objective Patient Orientation: Person, Place Attachments: Mendez Catheter, IV, Oxygen (vapotherm) Current Glasses/Contacts: Yes Hand Dominance: Right Upper Extremity ROM Grossly WFL Upper Extremity Coordination Fair Upper Extremity Strength Decreased bilaterally ADL-Treatment ADL-Current Pt participated in UE assessment while in bed. Pt declined OOB activity, states she recently returned to bed after sitting in chair. Pt states she has already washed face. Education provided regarding role of OT and plan of care. Pt states understanding of education and is in agreement with plan. Pt resting in bed with needs met and nephew present after session. Education OT Patient Education: Rehab process Teaching Recipient: Patient Teaching Methods: Discussion Response to Teaching: Verbalize Understanding OT Turn Machine Operator Goals Turn Machine Operator Goals Time Frame: Dec 17, 2019 Oral Hygiene (QC): 6 Toileting Hygiene (QC): 6 Shower/Bathe Self (QC): 5 Upper Body Dressing (QC): 5 Lower Body Dressing (QC): 5 On/Off Footwear (QC): 5 Additional Goals: 1-Demonstrate ADL Tasks, 2-Verbalize Understanding, 3- ImproveStrength/Paramjit 1=Demonstrate adherence to instructed precautions during ADL tasks. 2=Patient will verbalize/demonstrate understanding of assistive devices/modifications for ADL. 3=Patient will improve strength/tolerance for activity to enable patient to perform ADL's. OT Education/Plan Problem List/Assessment Assessment: Decreased Activ Tolerance, Decreased UE Strength, Dependent Transfers, Impaired I ADL's, Impaired Self-Care Skills Discharge Recommendations Plan/Recommendations: Continue POC Treatment Plan/Plan of Care Patient would benefit from OT for education, treatment and training to promote independence in ADL's, mobility, safety and/or upper extremity function for ADL's. Plan of Care: ADL Retraining, Functional Mobility, UE Funct Exercise/Act Treatment Duration: Dec 10, 2019 Frequency: 5 times per week Estimated Hrs Per Day: .25 hour per day Rehab Potential: Guarded Time/GCodes Start Time: 11:30 Stop Time: 11:43 Total Time Billed (hr/min): 13 Billed Treatment Time 1 visit, [facility](13minutes) JENNIFER KESSLER OT Dec 09, 2019 12:00
--- NOTE | 2019-12-09 13:13 | NUR ---
CM/SS: Visited with pt alone about her plan of care and what she would like related to her health care Plan: Undetermined at this time Summary: Pt reports she is not 100% sure if she has what it will take to rehab back to where she was. Pt reports being tired and not having much energy. Pt does not want to go to a fpc. Pt does not want her family to take care of her. Pt asked about options and comfort care is discussed. This is explained by this worker. Pt's son enters the room and this worker shares with him that we are talking about options and him immediately saying that pt is stronger and doing better. He reports that his sister will be here between 1:00pn to 1:30pm. This worker will follow up.
--- NOTE | 2019-12-09 14:08 | NUR ---
RD ASSESSMENT PMHx: CAD; [place]; HTN; DM PT INTERACTION: Pt was awake and pleasant during nutrition assessment for LOS. Pt states current appetite is getting better. Note avg PO intake <50% of meals, per chart review. Pt states trying to follow and low-fat diet at home, and has no teeth but wears dentures. Pt states no recent issues with n/v/c/d at this time. Note last BM was 12/07 and pt currently on bowel regimen of miralax PRN, per chart review. Pt states no recent wt changes. Note unable to determine recent wt hx, per chart review. Pt states current DM management is "pretty good, but I'm not sure I have it. I used to be on metformin, but I don't take it anymore." Note unable to determine recent HbA1c, per chart review. ABNORMAL NUTRITION-RELATED LAB VALUES LOW: Cl 94; phos 1.7; Ca 8.2 HIGH: Est. kcal needs: 4425-1625 kcal | 25-30 kcal/kg Est. Pro needs: 56-70 g Pro | 0.8-1.0 g Pro/kg PES STATEMENT: Inadequate oral intake (NI-2.1) related to loss of appetite as evidenced by pt interview | avg PO intake <50% meals INTERVENTION: Continue with current diet order of DYS2 Mechanically Altered diet. Add Glucerna (vary) to meals TID, for increased kcal intake. Provides 220 kcal and 10 g Pro per serving. Replete phos, as current levels are abnormally low, per chart review. Will continue to follow and reassess as pt needs, intake, and status change. MONITOR/EVALUATE: PO Intake; Plan of Care; Hydration Status; Weight Status; Lab Values Jose Vale, MS, RD, LD
--- NOTE | 2019-12-09 15:07 | NUR ---
CM/SS: Visited with daughter as to plan of care based on previous conversation with pt Plan: Undetermined at this time. Pt still desires comfort care. Summary: Daughter (Shirley) is aware that pt does not want to live like this. Dependent on someone to provide for all of her cares. She and pt have a talk prior to my arrival and daughter shares that her mother has indicated she does not want to live this way. Pt also shares with daughter she is not sure she can do the rehab or work to get back to how she was before the hospital stay. Daughter seems ok with that at this time. Both are reassured we will take things one day at a time. Daughter would also like to talk with physician and see what his thoughts are related to recovery. This worker will follow up.
[2019-12-09] MEDS ORDERED: DexMEDEtomidine 250 ML DRIP 250 ML IV SCH (15:45)
[2019-12-09] MEDS: ALPRAZolam 0.5 MG (XANAX) TAB PO PRN (21:03)
[2019-12-10] VITALS (13 sets, daily range): BP systolic 117–169; BP diastolic 43–92
[2019-12-10] MEDS: RT-ALBUTEROL/IPRATROPIUM 3 ML (DUONEB) VIAL INH SCH ×6 (01:43→22:31)
[2019-12-10 03:19] LABS: BASOPHILS % (AUTO) 0 % (0-10); EOSINOPHILS # (AUTO) 0.4 10^3/uL (0.0-0.3); EOSINOPHILS % (AUTO) 7 % (0-10); HEMATOCRIT 36 % (35-52); HEMOGLOBIN 10.4 G/DL (11.5-16.0); LYMPHOCYTES # (AUTO) 1.1 X 10^3 (1.0-4.0); LYMPHOCYTES % (AUTO) 18 % (12-44); MEAN CORPUSCULAR HEMOGLOBIN 28 PG (25-34); MEAN CORPUSCULAR HGB CONC 29 G/DL (32-36); MEAN CORPUSCULAR VOLUME 95 FL (80-99); MEAN PLATELET VOLUME 10.7 FL (7.4-10.4); MONOCYTES # (AUTO) 0.7 X 10^3 (0.0-1.0); MONOCYTES % (AUTO) 12 % (0-12); NEUTROPHILS # (AUTO) 3.8 X 10^3 (1.8-7.8); NEUTROPHILS % (AUTO) 63 % (42-75); PLATELET COUNT 225 10^3/uL (130-400); RED CELL DISTRIBUTION WIDTH 13.9 % (10.0-14.5); WHITE BLOOD COUNT 6.1 10^3/uL (4.3-11.0)
[2019-12-10] MEDS: RT-ALBUTEROL/IPRATROPIUM 3 ML (DUONEB) VIAL INH PRN (03:34)
[2019-12-10 03:57] LABS: BUN/CREATININE RATIO 12; CALCIUM 8.4 MG/DL (8.5-10.1); CARBON DIOXIDE 38 MMOL/L (21-32); CHLORIDE 91 MMOL/L (98-107); CREATININE SERUM 0.68 MG/DL (0.60-1.30); GFR ESTIMATED > 60; GLUCOSE 115 MG/DL (70-105); MAGNESIUM 1.8 MG/DL (1.6-2.4); PHOSPHORUS 2.5 MG/DL (2.3-4.7); POTASSIUM 4.1 MMOL/L (3.6-5.0); SODIUM 138 MMOL/L (135-145); TRIGLYCERIDES 103 MG/DL (<150)
--- NOTE | 2019-12-10 06:09 | Pulmonary Progress Note ---
Subjective Time Seen by a Provider: 06:08 Sepsis Event Evaluation Height, Weight, BMI Height: '" Weight: lbs. oz. kg; 29.38 BMI Method: Exam Exam Vital Signs Date Time Temp Pulse Resp B/P (MAP) Pulse Ox O2 Delivery O2 Flow Rate FiO2 12/10/19 04:00 98 33 117/86 (96) 91 Vapotherm 30.00 55.00 12/10/19 03:34 93 Vapotherm 30.00 55 12/10/19 03:00 90 12 139/54 (82) 95 Vapotherm 30.00 55.00 12/10/19 02:00 89 128/51 (76) 91 Vapotherm 30.00 55.00 12/10/19 01:45 84 93 Vapotherm 30.00 55.00 12/10/19 01:42 93 Vapotherm 30.00 55 12/10/19 01:00 99 130/43 (72) 95 NIV Bilevel 40.00 12/10/19 01:00 99 12/10/19 00:00 91 Vapotherm 20.00 50 12/10/19 00:00 84 140/49 (79) 94 NIV Bilevel 40.00 12/09/19 23:59 35.8 12/09/19 23:00 88 138/47 (77) 96 NIV Bilevel 40.00 12/09/19 22:00 80 122/55 (77) 95 NIV Bilevel 40.00 12/09/19 21:30 78 16 94 NIV Bilevel 40.00 12/09/19 21:20 84 24 94 40.00 12/09/19 21:00 94 31 138/63 (88) 93 Vapotherm 25.00 45.00 12/09/19 20:00 91 Vapotherm 20.00 50 12/09/19 20:00 103 23 133/54 (80) 90 Vapotherm 25.00 45.00 12/09/19 20:00 36.7 12/09/19 19:00 89 12/09/19 19:00 89 149/55 (86) 91 Vapotherm 25.00 45.00 12/09/19 18:07 92 Vapotherm 30.00 50 12/09/19 18:00 95 135/59 (84) 90 Vapotherm 25.00 45.00 12/09/19 17:00 97 113/56 (75) 92 Vapotherm 25.00 45.00 12/09/19 16:00 110 19 99/57 (71) 90 Vapotherm 25.00 45.00 12/09/19 16:00 91 Vapotherm 20.00 50 12/09/19 15:00 104 22 129/59 (82) 92 Vapotherm 25.00 45.00 12/09/19 14:12 92 Vapotherm 25.00 50 12/09/19 14:00 87 17 132/47 (75) 92 Vapotherm 25.00 45.00 12/09/19 13:40 Vapotherm 25.00 45.00 12/09/19 13:00 88 36 130/67 (88) 95 Vapotherm 20.00 45.00 12/09/19 12:34 Vapotherm 20.00 45.00 12/09/19 12:10 108 12/09/19 12:00 37.0 12/09/19 12:00 91 22 93 Vapotherm 20.00 60.00 12/09/19 12:00 91 Vapotherm 20.00 60 12/09/19 11:00 101 16 118/85 (96) 95 Vapotherm 20.00 60.00 12/09/19 10:01 92 Vapotherm 25.00 60 12/09/19 10:00 104 20 133/66 (88) 92 Vapotherm 20.00 60.00 12/09/19 09:00 129 36 129/74 (92) 94 Vapotherm 20.00 60.00 12/09/19 08:20 Vapotherm 20.00 60.00 12/09/19 08:00 91 Vapotherm 20.05 60 12/09/19 08:00 126 145/74 (97) 93 Vapotherm 25.00 65.00 12/09/19 07:49 95 Vapotherm 25.00 65 12/09/19 07:00 111 29 139/74 (95) 96 Vapotherm 25.00 65.00 12/09/19 07:00 119 I & O 12/10/19 07:00 Intake Total 1325 ml Output Total 4550 ml Balance -3225 ml Height & Weight Height: '" Weight: lbs. oz. kg; 29.38 BMI Method: General Appearance: No Apparent Distress, Chronically ill HEENT: Other (oral mucosa dry with possible yeast) Neck: Limited Range of Motion Respiratory: No Accessory Muscle Use, No Respiratory Distress, Crackles, Other (Wearing Vapotherm) Cardiovascular: Irregularly Irregular, Tachycardia Capillary Refill: Less Than 3 Seconds Gastrointestinal: normal bowel sounds, non tender, soft, no pulsatile mass Extremity: Normal Inspection, Non Tender, No Pedal Edema Neurologic/Psychiatric: Alert, Normal Mood/Affect Skin: Warm/Dry, Pallor Lymphatic: No Adenopathy Results Lab Laboratory Tests 12/09/19 03:44 12/10/19 03:00 Assessment/Plan Assessment/Plan Acute respiratory failure -extubated yesterday - zosyn - Continue Lasix 40mg BID IV -CT shows bilateral pleural effusions R>L -CXR shows improvement today after lasix -BiPAP PRN and HS -Arriaga cultures pendng -MRSA pending pulmonary edema probably secondary to diastolic dysfunction - 40mg of Lasix BID -pending influenza and RVP Afib new onset -Cardiology following CAD with hx of CABG -Cardiology following Transfer to 4th floor ABBIE GUIDRY DO Dec 10, 2019 06:09
[2019-12-10] MEDS: KCL 20 MEQ POWDER FOR ORAL SOLUTION NG SCH (06:30)
[2019-12-10] MEDS: FUROSEMIDE 40 MG/4 ML INJ (LASIX) IVP SCH ×2 (06:30→16:55)
[2019-12-10] MEDS: PIPERACILLIN/TAZOBACTAM (BULK) 4.5 GM in NS (IVPB) 100 ML IV SCH ×3 (06:30→21:11)
[2019-12-10] MEDS: NYSTATIN ORAL SUSP 5 ML UDC PO SCH ×3 (06:30→16:55)
[2019-12-10] MEDS: CATHETER FLUSH 10 ML SYR IV SCH ×3 (06:31→21:12)
[2019-12-10] MEDS: KCL 20 MEQ POWDER FOR ORAL SOLUTION PO SCH ×2 (06:32→16:55)
--- NOTE | 2019-12-10 07:19 | Diagnostic Imaging Report ---
INDICATION: Respiratory distress. Comparison with 12/09/2019. FINDINGS: There has been improvement of the aeration of the left lung with decreasing basilar infiltrate though some infiltrate does remain present. Opacification of the right lung base with infiltrate and pleural effusion is unchanged. Upper lungs are clear. Cardiomegaly with median sternotomy changes again noted. Right central line unchanged. IMPRESSION: 1. Persistent right basilar infiltrate and pleural effusion without significant change. Dictated by: Dictated on workstation # [id number]
[2019-12-10] MEDS: inSUlin ASPART (NovoLOG) 1 UNIT/0.01 ML (CHARGE PER UNIT) SC SCH ×4 (07:23→20:27)
[2019-12-10] MEDS: DIGOXIN 0.125 MG (LANOXIN) TAB PO SCH (09:44)
[2019-12-10] MEDS: meTOprolol TARTRATE 25 MG (LOPRESSOR) TABLET PO SCH ×2 (09:44→21:10)
[2019-12-10] MEDS: ENOXAPARIN 80 MG/0.8 ML (LOVENOX) SYR SC SCH ×2 (09:45→21:10)
[2019-12-10] MEDS: PANTOPRAZOLE 40 MG (PROTONIX) VIAL IV SCH (09:45)
[2019-12-10] MEDS: LACTOBACILLUS ACIDOPHILUS (PROBIOTIC) CAPSULE PO SCH ×3 (09:45→16:55)
[2019-12-10] MEDS: ASPIRIN 81 MG CHEW (CHILDREN'S ASA) NG SCH (09:45)
--- NOTE | 2019-12-10 10:13 | Cardiology Progress Note ---
Subjective Date Seen by Provider: Dec 10, 2019 Time Seen by Provider: 10:11 Subjective/Events-last exam Patient is laying down in bed, feeling better, breathing better. Still on Vapotherm Review of Systems General: No Chills, No Night Sweats, No Fatigue, No Malaise, No Appetite, No Other HEENT: No Head Aches, No Visual Changes, No Eye Pain, No Ear Pain, No Dysphasi a, No Sinus Congestion, No Post Nasal Drip, No Sore Throat, No Other Pulmonary: No Dyspnea, No Cough, No Pleuritic Chest Pain, No Other Cardiovascular: No: Chest Pain, Palpitations, Orthopnea, Paroxysmal Noc. Dyspnea, Edema, Lt Headedness, Other Objective-Cardiology Exam Last Set of Vital Signs Vital Signs 12/09/19 12/10/19 12/10/19 12/10/19 23:59 08:00 09:00 09:49 Temp 35.8 Pulse 101 Resp 37 B/P (MAP) 158/67 (97) Pulse Ox 95 O2 Delivery Vapotherm O2 Flow Rate 30.00 FiO2 50 Capillary Refill : Less Than 3 Seconds I&O Intake and Output 12/10/19 00:00 Intake Total 1625 ml Output Total 5100 ml Balance -3475 ml Intake Oral 1515 ml IV Total 110 ml Output Urine Total 5100 ml # Bowel Movements 1 General: Alert, Cooperative, Mild Distress HEENT: Atraumatic Neck: Supple, No JVD Lungs: Normal Air Movement, Other (Bilateral rhonchi) Heart: Normal S1, Normal S2, Other (Atrial fibrillation with rapid ventricular response) Abdomen: Normal Bowel Sounds, Soft Extremities: No Clubbing, No Cyanosis Skin: No Rashes Neuro: Normal Speech Psych/Mental Status: Mental Status NL, Mood NL Results Lab Laboratory Tests 12/10/19 03:00 A/P-Cardiology Admission Diagnosis Acute respiratory failure Atrial fibrillation Hypotensive shock Hematuria Assessment/Plan Status post respiratory failure, currently on Vapotherm, feeling better. Improving slowly. Continue with aggressive diuresis. Pneumonia, receiving antibiotic, improving slowly Decubitus ulcer, managed by primary care team Congestive heart failure, acute on chronic left ventricular diastolic dysfu nction worsened by atrial fibrillation, echocardiogram done on December 03, [address] Ruggiero to have normal LV size and function with EF 50-55 percent, biatrial enlargement, mild to moderate mitral regurgitation, tricuspid regurgitation, PA pressure 30 mmHg Paroxysmal atrial fibrillation, tachycardic, I will increase Cardizem and monitor tolerance and response Status post hypotensive shock, blood pressure is better. Continue to monitor Hematuria, tolerating Lovenox, no sign of active hematuria at this time. Continue to monitor Coronary artery disease, history of CABG in 1989, total of 8 or 9 stents done in the past, has been following with a landfill attendant in , stopped seeing a landfill attendant for the past 5 years. Clinical Quality Measures DVT/VTE Risk/Contraindication: Risk Factor Score Per Nursin RFS Level Per Nursing on Admit: 4+=Very High YANNICK TIJERINA MD Dec 10, 2019 10:13
--- NOTE | 2019-12-10 10:34 | Physical Therapy Daily Note ---
PT Daily Note-Current Subjective No pain reported Appearance Returned to chair with call light and tray in reach Mental Status Patient Orientation: Person, Place, Eyes Open Attachments: Central Line, Oxygen (vapotherm), Mendez Catheter heart monitory, 02 sat, BP Transfers SCALE: Activities may be completed with or without assistive devices. 3-Onpqyijiyx-ntngswu completes the activity by him/herself with no assistance from a helper. 5-Set-up or Clean-up Assistance-helper sets up or cleans up; patient completes activity. [place] assists only prior to or following the activity. 4-Supervision or Touching Assistance-helper provides verbal cues and/or touching/steadying and/or contact guard assistance as patient completes activity. Assistance may be provided throughout the activity or intermittently. 3-Partial/Moderate Assistance-helper does LESS THAN HALF the effort. [place] lifts, holds or supports trunk or limbs, but provides less than half the effort. 2-Substantial/Maximal Assistance-helper does MORE THAN HALF the effort. [place] lifts or holds trunk or limbs and provides more than half the effort. 6-Zwzzyzsrb-lnscty does ALL the effort. Patient does none of the effort to complete the activity. Or, the assistance of 2 or more helpers is required for the patient to complete the activity. If activity was not attempted, code reason: 7-Patient Refused. 9-Not Applicable-not attempted and the patient did not perform the activity before the current illness, exacerbation or injury. 10-Not Attempted due to Environmental Limitations-(lack of equipment, weather restraints, etc.). 88-Not Attempted due to Medical Conditions or Safety Concerns. Roll Left & Right (QC): 2 Lying to Sitting/Side of Bed(Q: 2 Sit to Stand (QC): 2 Chair/Xeh-oa-[place]wa Xfer(QC): 2 PT assist with sit to stand and SPT bed to recliner Weight Bearing Right Lower Extremity: Right Weight Bearing/Tolerated Left Lower Extremity: Left Weight Bearing/Tolerated Gait Training Does the Patient Walk?: No and Walking Goal IS indicated Wheelchair Training Does the Pt Use a Wheelchair?: No Exercises Supine Ex: Ankle pumps Supine Reps: 10 Seated Therapy Exercises: Ankle pumps Seated Reps: 10 Assessment Current Status: Good Progress Patient o2 sat drooped to 70 when transferring to chair. RT called to assess the patient. RN also informed. Patient in no visual distress. Prior to RT, RN increased vapotherm to 65% and 30L from 55%/30L. PT Short Term Goals Short Term Goals Sit to lyin Lying to sitting on side of be: 3 Sit to stand: 3 Chair/fud-tk-qatgs transfer: 3 PT Steam Table Attendant Goals Steam Table Attendant Goals PT Halfway Goals Time Frame: Dec 27, 2019 Roll Left & Right (QC): 5 Sit to Lying (QC): 4 Lying-Sitting on Side/Bed(QC): 4 Sit to Stand (QC): 4 Walk 10 feet (QC): 4 (RW) PT Plan Problem List Problem List: Activity Tolerance, Functional Strength, Safety, Balance, Gait, Transfer, Bed Mobility Treatment/Plan Treatment Plan: Continue Plan of Care Treatment Plan: Bed Mobility, Education, Functional Activity Paramjit, Functional Strength, Gait, Safety, Therapeutic Exercise, Transfers Treatment Duration: Dec 27, 2019 Frequency: 6 times per week Estimated Hrs Per Day: .25 hour per day Patient and/or Family Agrees t: Yes Safety Risks/Education Patient Education: Gait Training, Transfer Techniques, Correct Positioning, Disease Process, Safety Issues Teaching Recipient: Patient, Family Teaching Methods: Demonstration, Discussion, Audiovisual Response to Teaching: Verbalize Understanding, Return Demonstration, Reinforcement Needed Time/GCodes Time In: 0900 Time Out: 0915 Total Billed Treatment Time: 15 Total Billed Treatment 1 visit FA 15 NBA ELIZONDO PT Dec 10, 2019 10:34
--- NOTE | 2019-12-10 11:58 | Progress Note - Hospitalist ---
Subjective HPI/CC On Admission Date Seen by Provider: Dec 10, 2019 Time Seen by Provider: 08:25 CC: SOB with palpitations HPI: This is an 89yoWF clinic pt of Dr. Carvajal who has a PMH of CAD previous bypass and stents placed who was recently placed on home O2 in July at two liters and recently increased to 3 who had gone to urgent care, found to have pneumonia and CHF in August but she was found to have AF with RVR and congestive heart failure. Dr. Ruggiero has evaluated her, ordered and echocardiogram and will closely monitor and has been managing IV diuresis. Dr. Palacios will be consulted due to O2 dependency. Subjective/Events-last exam She reports feeling okay today. She denies any fevers or chills. She denies any shortness of breath. She is having a cough productive of sputum. She denies any chest pain. She has no other complaints or concerns. Objective Exam Vital Signs Vital Signs Date Time Temp Pulse Resp B/P (MAP) Pulse Ox O2 Delivery O2 Flow Rate FiO2 12/10/19 09:49 95 Vapotherm 30.00 50 12/10/19 09:00 101 37 12/09/19 23:59 35.8 Capillary Refill : Less Than 3 Seconds General Appearance: No Apparent Distress, Chronically ill Neck: Normal Inspection, Supple Respiratory: Lungs Clear, Normal Breath Sounds, Decreased Breath Sounds Cardiovascular: Regular Rate, Rhythm, No Edema, No Murmur Gastrointestinal: Normal Bowel Sounds, Non Tender, Soft Extremity: Normal Inspection, Non Tender, No Pedal Edema Neurologic/Psychiatric: Alert, Oriented x3, Normal Mood/Affect Skin: Warm/Dry, Pallor Results/Procedures Lab Laboratory Tests 12/10/19 03:00 Patient resulted labs reviewed. Assessment/Plan Assessment and Plan Assess & Plan/Chief Complaint Acute respiratory failure Pneumonia Pulmonary edema Continue Vapotherm, wean as able Continue antibiotics Chest x-ray with right basilar infiltrate and pleural effusions, mildly improved Continue Lasix Transfer to the floor paroxysmal atrial fibrillation Continue digoxin and diltiazem Lovenox for stroke prophylaxis Poor prognosis CAD s/p CABG Hematuria HTN NIDDM Diagnosis/Problems Diagnosis/Problems (1) Acute respiratory failure with hypoxia Status: Acute (2) Pneumonia Status: Acute (3) Poor prognosis Status: Acute Clinical Quality Measures DVT/VTE Risk/Contraindication: Risk Factor Score Per Nursin RFS Level Per Nursing on Admit: 4+=Very High RAHUL RIGGS MD Dec 10, 2019 11:58
--- NOTE | 2019-12-10 12:50 | NUR ---
Report received from SORAYA Moran. Pt transferred to room 412. Pt introduced to room and call light, pt tolerated transfer well.
--- NOTE | 2019-12-10 13:05 | NUR ---
PT TO 4TH FLOOR VIA BED ACCOMPANIED BY RT AND PCT. REPORT GIVEN TO BALAJI PRIOR TO TRANSFER.
--- NOTE | 2019-12-10 14:29 | Occupational Ther Daily Note ---
OT Current Status-Daily Note Subjective Pt seen in bed, call light on. Pt states uncomfortable and desires resituated. Pt's daughter present through session. Pt denies current pain, on vapotherm . Mental Status/Objective Attachments: Oxygen (vapotherm ) ADL-Treatment Therapy Code Descriptions/Definitions Functional [place] Measure: 0=Not Assessed/NA 4=Minimal Assistance 1=Total Assistance 5=Supervision or Setup 2=Maximal Assistance 6=Modified [place] 3=Moderate Assistance 7=Complete IndependenceSCALE: Activities may be completed with or without assistive devices. 0-Zcmdyuxavu-jawwlyo completes the activity by him/herself with no assistance from a helper. 5-Set-up or Clean-up Assistance-helper sets up or cleans up; patient completes activity. [place] assists only prior to or following the activity. 4-Supervision or Touching Assistance-helper provides verbal cues and/or touching/steadying and/or contact guard assistance as patient completes activ ity. Assistance may be provided throughout the activity or intermittently. 3-Partial/Moderate Assistance-helper does LESS THAN HALF the effort. [place] lifts, holds or supports trunk or limbs, but provides less than half the effort. 2-Substantial/Maximal Assistance-helper does MORE THAN HALF the effort. [place] lifts or holds trunk or limbs and provides more than half the effort. 5-Qqnrcombc-fxbabl does ALL the effort. Patient does none of the effort to complete the activity. Or, the assistance of 2 or more helpers is required for the patient to complete the activity. If activity was not attempted, code reason: 7-Patient Refused. 9-Not Applicable-not attempted and the patient did not perform the activity before the current illness, exacerbation or injury. 10-Not Attempted due to Environmental Limitations-(lack of equipment, weather restraints, etc.). 88-Not Attempted due to Medical Conditions or Safety Concerns. Eating (QC): 6 (per pt) Shower/Bathe Self (QC): 7 (pt states completed this morning.) Other Treatment Pt unable to bring self up in bed with cues. Pt requires assist x2 for assist toward HOB. Pt educated on UE theraband ex to continue strengthening in order to assist OOB activities/ EOB movements. Pt agrees. Pt educated on continued deep breathing (cues for breaths during ex), pt completes horizontal adduction, shoulder scaption, and back flies (bilaterally, 8-10 reps). Pt educated on diaphragmatic breathing, return demonstrates. Pt requests chucks under bottom due to "loose BM." Pt able to roll L/ R for assist placing pad under bottom. Pt left in room with daughter present, all needs met, call light in reach. Education OT Patient Education: Correct positioning, Exercise program, Home exercise program, Purpose of tx/functional activities Teaching Recipient: Patient Teaching Methods: Demonstration, Discussion Response to Teaching: Verbalize Understanding, Return Demonstration OT Nursing Home Goals Logging Truck Driver Goals Time Frame: Dec 17, 2019 Oral Hygiene (QC): 6 Toileting Hygiene (QC): 6 Shower/Bathe Self (QC): 5 Upper Body Dressing (QC): 5 Lower Body Dressing (QC): 5 On/Off Footwear (QC): 5 Additional Goals: 1-Demonstrate ADL Tasks, 2-Verbalize Understanding, 3- ImproveStrength/Paramjit 1=Demonstrate adherence to instructed precautions during ADL tasks. 2=Patient will verbalize/demonstrate understanding of assistive devices/modifications for ADL. 3=Patient will improve strength/tolerance for activity to enable patient to perform ADL's. OT Education/Plan Problem List/Assessment Assessment: Decreased Activ Tolerance, Decreased UE Strength, Dependent Transfers, Impaired Bed Mobility, Impaired I ADL's, Impaired Self-Care Skills Discharge Recommendations Plan/Recommendations: Continue POC Therapy Discharge Recommendati: 24 Hour Supervision, Post Acute OT Treatment Plan/Plan of Care Treatment,Training & Education: Yes Patient would benefit from OT for education, treatment and training to promote independence in ADL's, mobility, safety and/or upper extremity function for ADL's. Plan of Care: ADL Retraining, Functional Mobility, UE Funct Exercise/Act Treatment Duration: Dec 10, 2019 Frequency: 5 times per week Estimated Hrs Per Day: .25 hour per day Rehab Potential: Guarded Time/GCodes Start Time: 13:22 Stop Time: 13:41 Total Time Billed (hr/min): 19 Billed Treatment Time 1, EX (19) HUSAM SERRANO OTR Dec 10, 2019 14:29
--- NOTE | 2019-12-10 17:03 | NUR ---
CM/SS: Visited with pt and daughter as to plan for discharge Plan: Undetermined at this time. Pt would like to go home with hospice. Summary: Pt feeling better, and playing games on jong. Pt feels as if she wants to go home with hospice services as she knows that she is not going to get better, but wants to be with her family whatever time she has left. Pt reports her sister had hospice and she was pleased with those services. Hospice is discussed with pt and daughter. Pt does not want to go to a skilled nursing and feels as if she would not benefit from being there. Daughter on board with the plan. This worker will follow up.
[2019-12-10] MEDS: ALPRAZolam 0.5 MG (XANAX) TAB PO PRN (21:19)
[2019-12-11 00:39] VITALS: BP 144/67
[2019-12-11] MEDS: NYSTATIN ORAL SUSP 5 ML UDC PO SCH ×3 (00:48→12:56)
[2019-12-11 04:51] LABS: BASOPHILS % (AUTO) 0 % (0-10); EOSINOPHILS # (AUTO) 0.5 10^3/uL (0.0-0.3); EOSINOPHILS % (AUTO) 8 % (0-10); HEMATOCRIT 39 % (35-52); HEMOGLOBIN 11.6 G/DL (11.5-16.0); LYMPHOCYTES # (AUTO) 1.3 X 10^3 (1.0-4.0); LYMPHOCYTES % (AUTO) 23 % (12-44); MEAN CORPUSCULAR HEMOGLOBIN 28 PG (25-34); MEAN CORPUSCULAR HGB CONC 30 G/DL (32-36); MEAN CORPUSCULAR VOLUME 94 FL (80-99); MEAN PLATELET VOLUME 10.5 FL (7.4-10.4); MONOCYTES # (AUTO) 0.6 X 10^3 (0.0-1.0); MONOCYTES % (AUTO) 10 % (0-12); NEUTROPHILS # (AUTO) 3.3 X 10^3 (1.8-7.8); NEUTROPHILS % (AUTO) 58 % (42-75); PLATELET COUNT 267 10^3/uL (130-400); RED CELL DISTRIBUTION WIDTH 13.9 % (10.0-14.5); WHITE BLOOD COUNT 5.6 10^3/uL (4.3-11.0)
[2019-12-11 04:54] VITALS: BP 132/71
[2019-12-11 05:17] LABS: BUN/CREATININE RATIO 13; CARBON DIOXIDE 37 MMOL/L (21-32); CHLORIDE 93 MMOL/L (98-107); CREATININE SERUM 0.77 MG/DL (0.60-1.30); GFR ESTIMATED > 60; GLUCOSE 119 MG/DL (70-105); MAGNESIUM 1.9 MG/DL (1.6-2.4); PHOSPHORUS 2.7 MG/DL (2.3-4.7); POTASSIUM 4.1 MMOL/L (3.6-5.0); SODIUM 138 MMOL/L (135-145)
[2019-12-11] MEDS: inSUlin ASPART (NovoLOG) 1 UNIT/0.01 ML (CHARGE PER UNIT) SC SCH ×3 (06:02→15:54)
[2019-12-11] MEDS: KCL 20 MEQ POWDER FOR ORAL SOLUTION NG SCH (06:04)
[2019-12-11] MEDS: CATHETER FLUSH 10 ML SYR IV SCH ×2 (06:27→12:56)
[2019-12-11] MEDS: PIPERACILLIN/TAZOBACTAM (BULK) 4.5 GM in NS (IVPB) 100 ML IV SCH ×2 (06:27→14:52)
[2019-12-11] MEDS: KCL 20 MEQ POWDER FOR ORAL SOLUTION PO SCH (06:27)
[2019-12-11] MEDS: FUROSEMIDE 40 MG/4 ML INJ (LASIX) IVP SCH ×2 (06:27→15:54)
[2019-12-11] MEDS: RT-ALBUTEROL/IPRATROPIUM 3 ML (DUONEB) VIAL INH SCH ×3 (06:49→09:33)
[2019-12-11 08:00] VITALS: BP 121/59
[2019-12-11] MEDS: meTOprolol TARTRATE 25 MG (LOPRESSOR) TABLET PO SCH (08:49)
[2019-12-11] MEDS: DIGOXIN 0.125 MG (LANOXIN) TAB PO SCH (08:49)
[2019-12-11] MEDS: ASPIRIN 81 MG CHEW (CHILDREN'S ASA) NG SCH (08:49)
[2019-12-11] MEDS: LACTOBACILLUS ACIDOPHILUS (PROBIOTIC) CAPSULE PO SCH ×2 (08:49→12:56)
[2019-12-11] MEDS: ENOXAPARIN 80 MG/0.8 ML (LOVENOX) SYR SC SCH (08:50)
[2019-12-11] MEDS: PANTOPRAZOLE 40 MG (PROTONIX) VIAL IV SCH (08:50)
--- NOTE | 2019-12-11 09:07 | Cardiology Progress Note ---
Subjective Date Seen by Provider: Dec 11, 2019 Time Seen by Provider: 09:05 Subjective/Events-last exam Patient is sitting up in chair, denies any chest pain or increased dyspnea. Noted to be tachycardic this morning. Review of Systems General: No Chills, No Night Sweats, No Fatigue, No Malaise, No Appetite, No Other HEENT: No Head Aches, No Visual Changes, No Eye Pain, No Ear Pain, No Dysphasia, No Sinus Congestion, No Post Nasal Drip, No Sore Throat, No Other Pulmonary: Dyspnea, Cough; No Pleuritic Chest Pain, No Other Cardiovascular: No: Chest Pain, Palpitations, Orthopnea, Paroxysmal Noc. Dyspnea, Edema, Lt Headedness, Other Objective-Cardiology Exam Last Set of Vital Signs Vital Signs 12/11/19 12/11/19 12/11/19 08:00 09:33 10:23 Temp 37.4 Pulse 120 Resp 22 B/P (MAP) 121/59 (79) Pulse Ox 93 O2 Delivery High Flow N/C O2 Flow Rate 4.00 FiO2 35 Capillary Refill : Less Than 3 Seconds I&O Intake and Output 12/11/19 00:00 Intake Total 1301 ml Output Total 3300 ml Balance -1999 ml Intake Oral 1301 ml Output Urine Total 3300 ml # Bowel Movements 2 General: Alert, Cooperative, Mild Distress HEENT: Atraumatic Neck: Supple, No JVD Lungs: Normal Air Movement, Other (Bilateral rhonchi) Heart: Normal S1, Normal S2, Other (Atrial fibrillation with rapid ventricular response) Abdomen: Normal Bowel Sounds, Soft Extremities: No Clubbing, No Cyanosis Skin: No Rashes Neuro: Normal Speech Psych/Mental Status: Mental Status NL, Mood NL Results Lab Laboratory Tests 12/11/19 04:30 A/P-Cardiology Admission Diagnosis Acute respiratory failure Atrial fibrillation Hypotensive shock Hematuria Assessment/Plan Status post respiratory failure, currently on Vapotherm, feeling better. Improving slowly. Continue with aggressive diuresis. 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 Ruggiero to have normal LV size and function with EF 50-55 percent, biatrial enlargement, mild to moderate mitral regurgitation, tricuspid regurgitation, PA pressure 30 mmHg Paroxysmal atrial fibrillation, tachycardic, increase Cardizem to 90 mg every 6 hours and evaluate tolerance and response Status post hypotensive shock, blood pressure is better. Continue to monitor Hematuria, tolerating Lovenox, no sign of active hematuria at this time. Continue to monitor Coronary artery disease, history of CABG in 1989, total of 8 or 9 stents done in the past, has been following with a whitesmith in , stopped seeing a whitesmith for the past 5 years. Patient was seen and evaluated with Josefa, examination performed, management plan was discussed, agree with the current scribed note, I made few changes to the note using Italic font Patient is laying down in bed, still using Vapotherm Tachycardic with atrial fibrillation I will increase Cardizem, continue on current medication, continue diuretics and monitor tolerance and was Clinical Quality Measures DVT/VTE Risk/Contraindication: Risk Factor Score Per Nursin RFS Level Per Nursing on Admit: 4+=Very High JOSEFA SKINNER Dec 11, 2019 9:07 am YANNICK TIJERINA MD Dec 11, 2019 10:37 am
--- NOTE | 2019-12-11 09:08 | NUR ---
ICU CALLS AND REPORTS HEART RATE 120-130. DR. RIGGS AT PTS BEDSIDE AND NOTIFIED.
--- NOTE | 2019-12-11 10:08 | Progress Note - Hospitalist ---
Subjective HPI/CC On Admission Date Seen by Provider: Dec 11, 2019 Time Seen by Provider: 09:00 CC: SOB with palpitations HPI: This is an 89yoWF clinic pt of Dr. Carvajal who has a PMH of CAD previous bypass and stents placed who was recently placed on home O2 in July at two liters and recently increased to 3 who had gone to urgent care, found to have pneumonia and CHF in August but she was found to have AF with RVR and congestive heart failure. Dr. Ruggiero has evaluated her, ordered and echocardiogram and will closely monitor and has been managing IV diuresis. Dr. Palacios will be consulted due to O2 dependency. Subjective/Events-last exam She reports some shortness of breath. She feels weak. She was in her chair earlier. She reports back pain. She denies fever and chills. She has been eating and drinking without issue. Objective Exam Vital Signs Vital Signs Date Time Temp Pulse Resp B/P (MAP) Pulse Ox O2 Delivery O2 Flow Rate FiO2 12/11/19 09:33 92 Vapotherm 30.00 35 12/11/19 06:40 90 12/11/19 04:54 36.4 28 132/71 (91) Capillary Refill : Less Than 3 Seconds General Appearance: No Apparent Distress, Chronically ill Respiratory: Lungs Clear, No Respiratory Distress Cardiovascular: No Edema, No Murmur, Irregularly Irregular Gastrointestinal: Normal Bowel Sounds, Non Tender, Soft Extremity: Normal Inspection, Non Tender, No Pedal Edema Neurologic/Psychiatric: Alert, Normal Mood/Affect Results/Procedures Lab Laboratory Tests 12/11/19 04:30 Patient resulted labs reviewed. Assessment/Plan Assessment and Plan Assess & Plan/Chief Complaint Acute respiratory failure Pneumonia Pulmonary edema Continue Vapotherm, wean as able Continue antibiotics Chest x-ray with right basilar infiltrate and pleural effusions, mildly improved Continue Lasix, negative 7L over the past three days paroxysmal atrial fibrillation Continue digoxin and diltiazem Lovenox for stroke prophylaxis Poor prognosis Palliative care consulted for possible hospice CAD s/p CABG Hematuria HTN NIDDM Diagnosis/Problems Diagnosis/Problems (1) Acute respiratory failure with hypoxia Status: Acute (2) Pneumonia Status: Acute (3) Poor prognosis Status: Acute Clinical Quality Measures DVT/VTE Risk/Contraindication: Risk Factor Score Per Nursin RFS Level Per Nursing on Admit: 4+=Very High RAHUL RIGGS MD Dec 11, 2019 10:08
--- NOTE | 2019-12-11 10:30 | NUR ---
SITTING IN CHAIR AND AN WELL. RT HERE AND DECREASED O2 TO 4L N/C.
--- NOTE | 2019-12-11 11:16 | Physical Therapy Progress Note ---
Therapy Progress Note Patient is dismissing to home on hospice on this date. NBA ELIZONDO PT Dec 11, 2019 11:16
[2019-12-11 12:14] VITALS: BP 127/57
--- NOTE | 2019-12-11 13:11 | NUR ---
CM/SS: Visit with pt and family as to discharge to home with Hospice as per consult Plan: Pt will go home today with [facility] Summary: Pt and family feel as if they are good with going home with hospice services. They report wanting to use [facility] in [place]. Daughter Shirley notified via phone [phone] of the plan for pt. She is ok and will make arrangements for the equipment to arrive. Son Je is here at the hospital and will go home to get things together for the equipment to arrive at the home. He is aware that the hospital bed will need to be in place prior to pt leaving the hospital. Information faxed to [facility] by SORAYA Ballardexcavation laborer [facility] [phone]- notified that referral will be sent to the referral line [phone]. [facility] is requested to call when the equipment is set up so that pt will go via EMS transport.
[2019-12-11] MEDS ORDERED: LORA2ORA PO (13:29)
[2019-12-11] MEDS ORDERED: MORP100S3 PO (13:29)
--- NOTE | 2019-12-11 13:37 | Discharge Summary ---
Discharge Summary Hospital Course Was the Problem List Reviewed?: Yes Problems/Dx: (1) Acute respiratory failure with hypoxia Status: Acute (2) Pneumonia Status: Acute (3) Poor prognosis Status: Acute Hospital Course Date of Admission: Dec 02, 2019 at 15:11 Admission Diagnosis : acute respiratory failure with hypoxia Family Physician/Provider: Quentin Jordan MD Date of Discharge: 12/11/19 Discharge Diagnosis: acute respiratory failure with hypoxia Hospital Course: Kimber Marrero is an 89-year-old female who presented with acute respiratory failure with hypoxia and was admitted with pneumonia. She required intubation. She was successfully extubated and transition to Vapotherm. She continued to require high amounts of oxygen. She was treated with IV antibiotics. She was also treated with IV diuretics for fluid overload. She was very weak from her illness. She did not want to go to a prison for any period of time. She made the decision to discharge on hospice with [facility]. She was discharged in poor condition. Labs and Pending Lab Test: Laboratory Tests 12/10/19 15:56: Glucometer 143H 12/10/19 20:21: Glucometer 157H 12/11/19 04:30: White Blood Count 5.6, Red Blood Count 4.17L, Hemoglobin 11.6, Hematocrit 39, Mean Corpuscular Volume 94, Mean Corpuscular Hemoglobin 28, Mean Corpuscular Hemoglobin Concent 30L, Red Cell Distribution Width 13.9, Platelet Count 267, Mean Platelet Volume 10.5H, Neutrophils (%) (Auto) 58, Lymphocytes (%) (Auto) 23, Monocytes (%) (Auto) 10, Eosinophils (%) (Auto) 8, Basophils (%) (Auto) 0, Neutrophils # (Auto) 3.3, Lymphocytes # (Auto) 1.3, Monocytes # (Auto) 0.6, Eosinophils # (Auto) 0.5H, Basophils # (Auto) 0.0, Sodium Level 138, Potassium Level 4.1, Chloride Level 93L, Carbon Dioxide Level 37H, Anion Gap 8, Blood Urea Nitrogen 10, Creatinine 0.77, Estimat Glomerular Filtration Rate > 60, BUN/Creatinine Ratio 13, Glucose Level 119H, Calcium Level 9.0, Phosphorus Level 2.7, Magnesium Level 1.9 12/11/19 11:14: Glucometer 107 Microbiology 3/13/20 Urine Culture - Final, Complete NO GROWTH 12/04/19 Influenza Types A,B Antigen (KAIN) - Final, Complete 12/04/19 Blood Culture - Final, Complete No growth Home Meds Active Lorazepam Intensol (Lorazepam) 2 Mg/1 Ml Oral.conc 2 Mg PO Q2H PRN Morphine Conc. 20mg/ml (Morphine Sulfate) 100 Mg/5 Ml Solution 10 Mg PO Q2H PRN 7 Days Reported Aspirin EC (Aspirin) 81 Mg Tablet.dr 81 Mg PO DAILY Super B-Complex Folic-Vit C Tb (Folic Acid/Vitamin B Comp W-C) 400 Mcg Tablet 400 Mcg PO DAILY Tylenol (Acetaminophen) 325 Mg Tablet 650 Mg PO Q8H PRN Benadryl (Diphenhydramine HCl) 25 Mg Capsule 25 Mg PO HS Clopidogrel (Clopidogrel Bisulfate) 75 Mg Tablet 75 Mg PO DAILY Amlodipine Besylate 10 Mg Tablet 10 Mg PO DAILY Isosorbide Mononitrate ER (Isosorbide Mononitrate) 60 Mg Tab 60 Mg PO DAILY Losartan Potassium 25 Mg Tablet 25 Mg PO DAILY Simvastatin 40 Mg Tablet 20 Mg PO HS TAKES OF A 40MG TO EQUAL 20MG AT BEDTIME Omeprazole 20 Mg Capsule.dr 20 Mg PO DAILY Metoprolol Succinate 50 Mg Tab.er.24h 75 Mg PO BID TAKE 1 & (50MG) TAB TWICE DAILY Furosemide 20 Mg Tablet 20 Mg PO DAILY Albuterol Sulfate 2.5 Mg/3 Ml Vial.neb 1 Vial NEB Q8H Levothyroxine Sodium 100 Mcg Tablet 100 Mcg PO 1800 TAKES AN HOUR AFTER DINNER Alprazolam 0.5 Mg Tablet 0.5 Mg PO HS Assessment/Pt Instructions The hospice agency will be in touch with you and will be managing her care from this time forward. Discharge Planning: <30 minutes discharge planning Discharge Instructions Discharge Diet: No Restrictions Activity as Tolerated: Yes Discharge Physical Examination Vital Signs Vital Signs Date Time Temp Pulse Resp B/P (MAP) Pulse Ox O2 Delivery O2 Flow Rate FiO2 12/11/19 12:14 37.2 93 18 127/57 (80) 93 High Flow N/C 4.00 12/11/19 09:33 35 General Appearance: Chronically ill Allergies: Coded Allergies: codeine (Verified Allergy, Unknown, 12/02/19) hydrocodone (Verified Allergy, Unknown, 12/02/19) tramadol (Verified Allergy, Unknown, 12/02/19) Copy Copies To 1: QUENTIN JORDAN MD Discharge Summary Date of Admission Dec 02, 2019 at 15:11 Date of Discharge Discharge Date: Dec 11, 2019 Discharge Time: 13:35 Admission Diagnosis acute respiratory failure with hypoxia Comfort Measures/ End of Life Care: Hospice Care (Home) Discharge Diagnosis Acute respiratory failure with hypoxia (1) Acute respiratory failure with hypoxia Status: Acute (2) Pneumonia Status: Acute (3) Poor prognosis Status: Acute Clinical Quality Measures DVT/VTE Risk/Contraindication: Risk Factor Score Per Nursin RFS Level Per Nursing on Admit: 4+=Very High RAHUL RIGGS MD Dec 11, 2019 13:36
--- NOTE | 2019-12-11 14:00 | NUR ---
TELE AND [facility] DC'D FOR DISCHARGE. UP TO [facility] WITH ASSIST X 1 AND SMEAR BM.
--- NOTE | 2019-12-11 15:02 | NUR ---
AWAITING EMS FOR TRANSPORT. RX X 2 IN DC PACKET. O2 ON AND WILL REQUIRE FOR TRANSPORT. EMS NOTIFIED.
[2019-12-11 15:50] VITALS: BP 132/64
--- NOTE | 2019-12-11 16:03 | NUR ---
DC'D WITH EMS TO HOSPICE. RX X 2 IN PACKET.
== END 2019-12-11 16:04 | disposition hospice, home (50) | DRG 208 ==
LOC: EDUNIT# 11:48 → ER FS 11:51 → 4TH 15:11 → ICU 12-04 07:23 → 4TH 12-10 12:49
PROVIDERS: ADMIT Family Medicine; ATTEND Family Medicine
PROC: 5A1945Z Respiratory Ventilation, 24-96 Consecutive Hours (ICD-10-PCS; principal; 2019-12-04)
PROC: 0BH17EZ Insertion of Endotracheal Airway into Trachea, Via Natural or Artificial Opening (ICD-10-PCS; 2019-12-04)
DX: J18.9 Pneumonia, unspecified organism (principal); I11.0 Hypertensive heart disease with heart failure; I50.33 Acute on chronic diastolic (congestive) heart failure; I48.0 Paroxysmal atrial fibrillation; J96.01 Acute respiratory failure with hypoxia; J96.02 Acute respiratory failure with hypercapnia; R57.9 Shock, unspecified; B37.0 Candidal stomatitis; Z66 Do not resuscitate; I25.10 Atherosclerotic heart disease of native coronary artery without angina pectoris; E11.9 Type 2 diabetes mellitus without complications; J44.9 Chronic obstructive pulmonary disease, unspecified; M19.91 Primary osteoarthritis, unspecified site; R31.0 Gross hematuria; I08.0 Rheumatic disorders of both mitral and aortic valves; E83.42 Hypomagnesemia; I25.2 Old myocardial infarction; L89.90 Pressure ulcer of unspecified site, unspecified stage; Z87.891 Personal history of nicotine dependence; Z95.5 Presence of coronary angioplasty implant and graft; Z95.1 Presence of aortocoronary bypass graft; Z99.81 Dependence on supplemental oxygen
CPT/HCPCS: 36415; 36600; 71045; 71275; 80048; 80053; 80162; 80202; 81000; 82553; 82805; 82962; 83605; 83735; 83880; 84100; 84145; 84443; 84478; 84484; 85007; 85025; 85027; 87040; 87070; 87081; 87088; 87205; 87449; 87631; 87804; 87899; 93005; 93041; 93306; 94003; 94640; 94660; 94664; 94760; 94799; 96365; 96375